=== PATIENT | male | born 1955 | race Caucasian/White ===

== ENCOUNTER 2017-02-05 23:07 | Emergency (ER) | payer MEDICAID ==
[~2017-02-05] VITALS: Ht 170.2 cm; Wt 90.7 kg
[~2017-02-05 23:07] MED LIST: ACETAMINOPHEN325 M2 PO; APAP/HYDROCODON1 T30 PO; ATORVASTATIN CA20 MG PO; BLOOD GLUCOSE1 EACH FS; CARVEDILOL3.125 MG PO; COLACE100 M1 PO; DEXTROSE 50 ML50 M3 IVP; ENEMA READY-TO133 ML RC; FLOMAX0.4 MG PO; FLUZONE QU IMVAC; IPRATROPIUM BROM3 M1 IH; ISORDIL10 M1 PO; LISINOPRIL10 M1 PO; MORPHINE SU2 MG/1 ML IVP; NITROSTAT0.4 MG SL; NOVAPLUS ONDA2 MG/M1 IVP; NOVOLOG100 UNIT/1 SUBQ; PANTOPRAZOLE SO40 MG PO; PNEUMOVAX IMVAC; PROVENTIL2.5 MG/3 M INH; ROBITUSSIN/CODEI5 ML PO; SIMETHICONE80 M2 PO
[2017-02-05 23:09] VITALS: BP 107/74
--- NOTE | 2017-02-06 00:28 | NUR ---
BIB WHEELCHAIR TO ER BED 3 FROM [facility]
--- NOTE | 2017-02-06 00:36 | NUR ---
61 Y/O M BIBA W/C/O SOB, COUGH, RUNNY NOSE X 5 DAYS. DENIES ANY FEVER. SAT 100 % IN RA. SOME DIMINISH BREATH SOUNDS AND SLIGHLTY WHEEZES TO L UPPER LOBE. ER MD NOTIFIED. NO S/S OF DISTRESS AT THE MOMENT.
[2017-02-06] MEDS ORDERED: ALBUTEROL 0.083% 2.5 MG/3 ML NEBU INH ONE (01:20)
[2017-02-06] MEDS ORDERED: NACL 0.9% 1,000 ML IV ONE (01:20)
[2017-02-06] MEDS ORDERED: cefTRIAXone 1,000 MG VIAL ONE (01:58)
[2017-02-06] MEDS ORDERED: cefTRIAXone 1,000 MG in LIDOCAINE 1% ED 2.1 ML IM ONE (02:05)
[2017-02-06] MEDS ORDERED: WATER STERILE 10 ML MC ONE (02:19)
[2017-02-06 02:45] VITALS: BP 113/69
--- NOTE | 2017-02-06 02:45 | NUR ---
Patient discharged BY ER MD DR LLAMAS with v/s stable. Written and verbal after care instructions given and explained BY ER MD. Patient alert, oriented and verbalized understanding of instructions. Ambulatory with steady gait. All questions addressed prior to discharge. ID band removed. Patient advised to follow up with PMD, OR RETURN IF CONDITION WORSENS. Rx of PROMETHAZINE AND BIAXIN FILMTAB given. Patient educated on indication of medication including possible reaction and side effects. Opportunity to ask questions provided and answered.
== END 2017-02-06 02:45 | disposition home or self-care (01) ==
LOC: MED 23:07
DX: J20.9 Acute bronchitis, unspecified (principal); E78.5 Hyperlipidemia, unspecified; I25.2 Old myocardial infarction; E11.9 Type 2 diabetes mellitus without complications; I10 Essential (primary) hypertension; Z79.4 Long term (current) use of insulin; Z88.0 Allergy status to penicillin; Z88.8 Allergy status to other drugs, medicaments and biological substances; Z86.73 Personal history of transient ischemic attack (TIA), and cerebral infarction without residual deficits; Z85.118 Personal history of other malignant neoplasm of bronchus and lung
CPT/HCPCS: 71010; 94640; 96372; 99283; J0696; J2001; J7030; J7060; J7613; Q0092

== ENCOUNTER 2018-09-17 08:59 | Inpatient (IN) | payer MEDICAID, MEDICARE ==
[~2018-09-17] VITALS: Ht 170.2 cm; Wt 81.7 kg
[~2018-09-17 08:59] MED LIST changes: +ACET-1182 PO; +ACET-9529 PO; -ACETAMINOPHEN325 M2 PO; +ALBU3SOL83 IH; -APAP/HYDROCODON1 T30 PO; +ATOR20TA40 PO; -ATORVASTATIN CA20 MG PO; +BLOO1STR56 FS; -BLOOD GLUCOSE1 EACH FS; +CARV3.122 PO; -CARVEDILOL3.125 MG PO; -COLACE100 M1 PO; +D50SYR IVP; -DEXTROSE 50 ML50 M3 IVP; +DOCU-299 PO; -ENEMA READY-TO133 ML RC; -FLOMAX0.4 MG PO; +FLU60SYR IMVAC; -FLUZONE QU IMVAC; +INSU-1343 SUBQ; -IPRATROPIUM BROM3 M1 IH; -ISORDIL10 M1 PO; +ISOS10TA9 PO; +LISI10TA11 PO; -LISINOPRIL10 M1 PO; +MORP2SOL18 IVP; -MORPHINE SU2 MG/1 ML IVP; +NA P133E3 RC; +NITR0.4T1 SL; -NITROSTAT0.4 MG SL; -NOVAPLUS ONDA2 MG/M1 IVP; -NOVOLOG100 UNIT/1 SUBQ; +ONDA2SOL45 IVP; +PANT40EC28 PO; -PANTOPRAZOLE SO40 MG PO; +PNE23I IMVAC; -PNEUMOVAX IMVAC; +PRON INH; -PROVENTIL2.5 MG/3 M INH; +ROBAC PO; -ROBITUSSIN/CODEI5 ML PO; +SIME80CT27 PO; -SIMETHICONE80 M2 PO; +TAMS0.4C96 PO
--- NOTE | 2018-09-17 09:01 | NUR ---
PT BIBA BLS TO BED 7
--- NOTE | 2018-09-17 09:02 | NUR ---
BIB EMS [place] [facility] [place] C/O SOB,abdominal pain, CP ON INHALATION .HX; blind,HTN, DM, LUNG CA, COPD, SD, STENT, PACEMAKER, INFECTION BL LOWER LEGS. DENIES N/V/D; AAOX4 , LUNGS CLEAR BL; PT DENIES ANY FEVER, CP, SOB, OR COUGH AT THIS TIME; PATIENT STATES PAIN OF 9/10 AT THIS TIME; PATIENT POSITIONED FOR COMFORT; HOB ELEVATED; BEDRAILS UP X2; BED DOWN. ER MD MADE AWARE OF PT STATUS.
--- NOTE | 2018-09-17 09:02 | NUR ---
Note undone in EDM - 09/17/18 at 0918 by [email or web address] [place] [facility] [place], CP ON INHALATION .HX; HTN, DM, LUNG CA, COPD, DE, STENT, PACEMAKER, INFECTION BL LOWER LEGS. DENIES N/V/D; AAOX4 , LUNGS CLEAR BL; PT DENIES ANY FEVER, CP, SOB, OR COUGH AT THIS TIME; PATIENT STATES PAIN OF 9/10 AT THIS TIME; PATIENT POSITIONED FOR COMFORT; HOB ELEVATED; BEDRAILS UP X2; BED DOWN. ER MD MADE AWARE OF PT STATUS.
[2018-09-17 09:04] VITALS: BP 131/89
--- NOTE | 2018-09-17 09:12 | NUR ---
Patient being evaluated by physician at bedside.
--- NOTE | 2018-09-17 09:22 | NUR ---
RT AT BEDSIDE FOR ABG
--- NOTE | 2018-09-17 09:27 | NUR ---
LAB AT BEDSIDE.
--- NOTE | 2018-09-17 09:39 | NUR ---
XRAY AT BEDSIDE
[2018-09-17 09:44] LABS: BASOPHILS % (AUTO) 0.4 % (0.0-2.0); EOSINOPHILS # (AUTO) 0.2 K/uL (0-0.4); EOSINOPHILS % (AUTO) 3.4 % (0.0-4.0); HEMOGLOBIN 13.7 g/dL (12.0-18.0); LYMPHOCYTES # (AUTO) 0.7 K/uL (2.0-11.5); LYMPHOCYTES % (AUTO) 14.2 % (20.5-51.1); MEAN CORPUSCULAR HEMOGLOBIN 27 pg (27-31); MEAN CORPUSCULAR HGB CONC 34 g/dL (33-37); MEAN CORPUSCULAR VOLUME 81.3 fL (80-94); MONOCYTES # (AUTO) 0.5 K/uL (0.8-1.0); MONOCYTES % (AUTO) 10.7 % (1.7-9.3); NEUTROPHILS # (AUTO) 3.3 K/uL (1.8-7.7); NEUTROPHILS % (AUTO) 71.3 % (42.2-75.2); PLATELET COUNT (AUTO) 135 K/uL (140-450); RED BLOOD CELL COUNT(AUTO) 5.04 MIL/uL (4.20-6.10); RED CELL DISTRIBUTION WIDTH 17.8 % (11.6-13.7); WHITE BLOOD COUNT (AUTO) 4.6 K/uL (4.8-10.8)
[2018-09-17 09:51] LABS: ANION GAP 11.1 (8-16); CARBON DIOXIDE 29.4 mmol/L (21-32); CREATININE 1.6 mg/dL (0.7-1.3); POTASSIUM 3.5 mmol/L (3.5-5.1)
[2018-09-17 09:54] LABS: ALBUMIN 3.3 g/dL (3.4-5.0); TOTAL BILIRUBIN 0.4 mg/dL (0.0-1.0)
[2018-09-17] MEDS ORDERED: VANCOMYCIN 1,000 MG in DEXTROSE 5% 250 ML IV ONE (10:25)
[2018-09-17] MEDS ORDERED: MEROPENEM 1,000 MG in NACL 0.9% 100 ML IV ONE (10:25)
--- NOTE | 2018-09-17 10:31 | NUR ---
PT TAKEN TO CT IN [facility]
--- NOTE | 2018-09-17 10:42 | NUR ---
PT RETURNED FROM CT
[2018-09-17] MEDS ORDERED: MEROPENEM 1,000 MG VIAL IV ONE ×2 (10:43→12:01)
[2018-09-17] MEDS ORDERED: VANCOMYCIN 1,000 MG VIAL ONE ×2 (10:44→12:00)
--- NOTE | 2018-09-17 11:30 | NUR ---
PT HAS HARD STICK, ATTAPED X 4 TIMES. REPRTED CHARGE NURSE SHAY FOR INSERTED IV.
[2018-09-17] MEDS ORDERED: LORazepam 2 MG/ML VIAL IM/IVP PRN (12:05)
[2018-09-17] MEDS ORDERED: ZOLPIDEM 5 MG TAB PO PRN (12:05)
[2018-09-17] MEDS ORDERED: MORPHINE SULFATE 4 MG/ML SYR IVP PRN (12:05)
[2018-09-17] MEDS ORDERED: ASPI81CT89 PO (12:12)
[2018-09-17] MEDS ORDERED: CARV3.12 PO (12:12)
[2018-09-17] MEDS ORDERED: SPIMDI INH (12:12)
[2018-09-17] MEDS ORDERED: CLOP75TA55 PO (12:12)
[2018-09-17] MEDS ORDERED: BISA-213 RC (12:12)
[2018-09-17] MEDS ORDERED: FURO-572 PO (12:12)
[2018-09-17] MEDS ORDERED: CRAN450T4 PO (12:12)
[2018-09-17] MEDS ORDERED: PRO5 PO (12:12)
[2018-09-17] MEDS ORDERED: SPIR50TA PO (12:12)
[2018-09-17] MEDS ORDERED: LEVA1.2512 IH (12:12)
[2018-09-17] MEDS ORDERED: FISH1CAP3 PO (12:12)
[2018-09-17] MEDS ORDERED: BUDE1AER IH (12:12)
[2018-09-17] MEDS ORDERED: ASCO500T45 PO (12:12)
[2018-09-17] MEDS ORDERED: MULT15LI1 GT (12:12)
[2018-09-17] MEDS ORDERED: ATOR10TA PO (12:12)
--- NOTE | 2018-09-17 12:32 | NUR ---
PT TAKEN TO FLOOR BY RN DAISHA AND EMT HOLLIS
[2018-09-17 12:41] LABS: PROTHROMBIN TIME 9.9 secs (10.8-13.4)
--- NOTE | 2018-09-17 12:45 | NUR ---
Patient will be admitted to care of DR GIL. Admited to TELE. Will go to room 111B. Belongings list completed. Report to MARTHA PATEL.
[2018-09-17 12:48] LABS: CHOL/HDL RATIO 2.3 (1-4.5); FREE T4 (FREE THYROXINE) 1.15 ng/dL (0.76-1.46); MAGNESIUM 1.9 mg/dL (1.8-2.4); PHOSPHORUS 3.4 mg/dL (2.5-4.9); THYROID STIMULATING HORMONE 4.48 uIU/mL (0.34-3.74)
[2018-09-17 13:00] VITALS: BP 107/73
--- NOTE | 2018-09-17 13:00 | NUR ---
ADMITTED PT FROM ER BY NOREEN ROMERO : SHORTNESS OF BREATH, LUNGS SOUND CRACKLES NOTED UPON ASSESSMENT. PT BLIND, AWAKE, ALERT. ABLE TO MAKE NEEDS KNOWN. PT DOES NOT HAVE IV ACCESS AT THIS TIME, PER GMAT TUTOR SKYE, PICC LINE NURSE HAS BEEN CALLED TO COME IN TO INSERT PICC LINE. ABD SOFT, NONTENDER. PT HAD BM LAST NIGHT, PT ABLE TO AMBULATE. CALL LIGHT IN REACH, INTRODUCED MYSELF TO PT, ORIENTED PT ENVIRONMENT. VITALS SIGNS CHECKED, IN NORMAL RANGE. WILL CONTINUE TO MONITOR.
[2018-09-17 13:21] LABS: APPEARANCE,URINE CLEAR (CLEAR); BARBITURATE, URINE NEG. ng/ml (NEG <=200); BENZODIAZEPINE, URINE NEG. ng/mL (NEG <=200); CANNABINOID, URINE NEG. ng/mL (NEG <=50); COCAINE, URINE NEG. ng/mL (NEG <=300); COLOR,URINE YELLOW (YELLOW); OPIATE, URINE NEG. ng/mL (NEG <=2000); PHENCYCLIDINE SCREEN,URINE NEG. ng/mL (NEG <=25)
[2018-09-17 13:23] LABS: BILIRUBIN,URINE NEGATIVE (NEGATIVE); BLOOD, URINE NEGATIVE (NEGATIVE); UGLUCOSE NEGATIVE (NEGATIVE)
[2018-09-17 13:24] LABS: LEUKOCYTE ESTERASE ,URINE NEGATIVE (NEGATIVE); NITRITE, URINE NEGATIVE (NEGATIVE)
--- NOTE | 2018-09-17 14:00 | NUR ---
PT O2 SATS 97% WITHOUT OXYGEN BUT PT STATED HE FEELS SHORTNESS OF BREATH, OFFERED PT O2 NC 2L/MIN, PT STATED HE WANTS SOME OXYGEN TO MAKE HIM COMFORTABLE.
[2018-09-17 16:00] VITALS: BP 104/72
[2018-09-17] MEDS ORDERED: DEXTROSE 50% 50 ML SYR IVP PRN (16:00)
[2018-09-17] MEDS ORDERED: NITROGLYCERIN 0.4 MG TAB SL ONE (16:00)
[2018-09-17] MEDS: BLOOD GLUCOSE MONITORING 1 DEV DEV FS SCH ×2 (16:12→20:32)
--- NOTE | 2018-09-17 16:40 | NUR ---
US TECH AT BEDSIDE. FINGER BS CHECKED 98, NO INSULIN COVERAGE NEEDED.
[2018-09-17] MEDS ORDERED: NITROGLYCERIN 0.4 MG TAB SL PRN (16:50)
[2018-09-17] MEDS ORDERED: LEVALBUTEROL HCL 1.25 MG IH SCH (17:00)
[2018-09-17] MEDS ORDERED: MIDODRINE 5 MG TAB PO SCH (17:15)
--- NOTE | 2018-09-17 17:38 | NUR ---
PICC LINE NURSE PRESENT TO UNIT.
[2018-09-17] MEDS ORDERED: BUPIVACAINE MPF 0.25% 10 ML VIAL INJ SCH (17:45)
[2018-09-17] MEDS ORDERED: LORazepam 2 MG/ML VIAL IM/IVP SCH (17:45)
[2018-09-17] MEDS ORDERED: diphenhydrAMINE 50 MG/ML VIAL IVP SCH (17:45)
--- NOTE | 2018-09-17 17:55 | NUR ---
PICC LINE NURSE STARTED TO INSERT PICC LINE.
--- NOTE | 2018-09-17 18:00 | NUR ---
BENADRYL GIVEN BY PICC LINE NURSE, PICC LINE DID NOT GIVE ATIVAN AND SENSORCAINE-MPF 0.25 %.
--- NOTE | 2018-09-17 18:10 | NUR ---
PICC LINE INSERTION DONE.
--- NOTE | 2018-09-17 18:20 | NUR ---
PICC LINE NURSE AT BEDSIDE TO FEED PT.
--- NOTE | 2018-09-17 18:20 | NUR ---
CUSTOMS BROKERAGE AGENT AT BEDSIDE TO FEED PT INSTEAD OF PICC LINE NURSE. PT HAS SKIN DISCOLORATION TO BOTH LOWER EXTREMITIES BUT SKIN IS INTACT. PICTURE TAKEN BY ER NURSE.
--- NOTE | 2018-09-17 19:15 | NUR ---
PT RESTING IN BED AND TALKING WITH FRIENDS ON THE PHONE, NO S/S OF RESPIRATORY DISTRESS OR DISCOMFORT NOTED.
--- NOTE | 2018-09-17 19:20 | NUR ---
RECEIVED REPORT FROM DAY SHIFT NURSE AT PT BEDSIDE. PT IN STABLE CONDITION. PT IS ON THE PHONE TALKING WITH FRIENDS. PT IS AAOX4. PT IS ON NC 2L RESPIRATIONS ARE EVEN AND UNLABORED. RUE PICC LINE IN PLACE. PATENT AND INTACT. PT HAS SKIN DISCOLORATION TO BILATERAL LE. PT HAS NO C/O PAIN AT THIS TIME. BED IS LOCKED, LOW POSITION WITH SIDE RAILS UP X2. CALL LIGHT IS WITHIN REACH. BOARD UPDATED. WILL CONTINUE TO MONITOR PT.
[2018-09-17 20:00] VITALS: BP 98/69
[2018-09-17] MEDS: NACL 0.9% 1,000 ML IV SCH (20:55)
--- NOTE | 2018-09-17 20:55 | NUR ---
MD PILLAI, GAVE ORDER THAT IT IS OKAY TO NOW USE PICC LINE. MD AWARE THAT ANTIBIOTICS WERE MISSED EARLIER TODAY D/T NO IV ACCESS. MD STILL WANTS ALL ANTIBIOTICS TO BE GIVEN. MISSED ANTIBIOTIC, MERREM, STARTED. PT IS TOLERATING WELL. WILL CONTINUE TO MONITOR.
[2018-09-17] MEDS ORDERED: METOPROLOL 25 MG TAB PO SCH (21:00)
[2018-09-17] MEDS ORDERED: CLINDAMYCIN 600 MG in DEXTROSE 5% 50 ML IV SCH (21:00)
--- NOTE | 2018-09-17 21:40 | NUR ---
VANCOMYCIN STARTED. PT IS RESTING COMFORTABLY IN BED. NO SIGNS OR SYMPTOMS OF DISTRESS. WILL CONTINUE TO MONITOR.
[2018-09-17] MEDS: CLINDAMYCIN PHOS 600MG/D5W PM 50 ML IV SCH (21:53)
[2018-09-17] MEDS: ATORVASTATIN 20 MG TAB PO SCH (21:54)
[2018-09-17] MEDS: CLOPIDOGREL 75 MG TAB PO SCH (21:54)
[2018-09-17] MEDS: FUROSEMIDE 20 MG TAB PO SCH (21:54)
--- NOTE | 2018-09-17 21:54 | NUR ---
ADMINISTERED SCHEDULED MEDICATIONS. PT TOLERATED WELL. ALL OTHER NEEDS ARE MET AT THIS TIME. WILL CONTINUE TO MONITOR.
--- NOTE | 2018-09-17 22:34 | NUR ---
X-RAY TECHS AT BEDSIDE.
--- NOTE | 2018-09-17 23:10 | NUR ---
PT TRANSFERRED TO ROOM 106A. PT IN STABLE CONDITION. ALL OTHER NEEDS ARE MET AT THIS TIME.
[2018-09-17] MEDS: LEVOFLOXACIN 750 MG/D5W PREMIX 150 ML IV SCH (23:30)
--- NOTE | 2018-09-17 23:30 | NUR ---
LEVOFLOXACIN STARTED. PT SLEEPING COMFORTABLY IN BED. NO SIGNS OR SYMPTOMS OF DISTRESS. WILL CONTINUE TO MONITOR.
[2018-09-18] VITALS: BP 93/59
--- NOTE | 2018-09-18 01:25 | NUR ---
PT IS ASLEEP IN BED. NO SIGNS OR SYMPTOMS OF DISTRESS. WILL CONTINUE TO MONITOR.
[2018-09-18 04:00] VITALS: BP 92/58
[2018-09-18] MEDS: CLINDAMYCIN PHOS 600MG/D5W PM 50 ML IV SCH ×3 (04:29→20:58)
--- NOTE | 2018-09-18 04:29 | NUR ---
ADMINISTERED SCHEDULED ANTIBIOTIC. PT IS SLEEPING COMFORTABLY IN BED. NO SIGNS OR SYMPTOMS OF DISTRESS. WILL CONTINUE TO MONITOR.
[2018-09-18] MEDS: BLOOD GLUCOSE MONITORING 1 DEV DEV FS SCH ×4 (06:17→20:58)
--- NOTE | 2018-09-18 06:18 | NUR ---
BS CHECKED, 102. NO COVERAGE NEEDED PER MD ORDERS. WILL CONTINUE TO MONITOR PT.
[2018-09-18 06:49] LABS: BASOPHILS % (AUTO) 0.4 % (0.0-2.0); EOSINOPHILS # (AUTO) 0.3 K/uL (0-0.4); EOSINOPHILS % (AUTO) 5.8 % (0.0-4.0); HEMATOCRIT 35.4 % (36-52); HEMOGLOBIN 11.5 g/dL (12.0-18.0); LYMPHOCYTES # (AUTO) 0.7 K/uL (2.0-11.5); LYMPHOCYTES % (AUTO) 15.6 % (20.5-51.1); MEAN CORPUSCULAR HEMOGLOBIN 27 pg (27-31); MEAN CORPUSCULAR HGB CONC 33 g/dL (33-37); MEAN CORPUSCULAR VOLUME 81.6 fL (80-94); MONOCYTES # (AUTO) 0.5 K/uL (0.8-1.0); MONOCYTES % (AUTO) 11.3 % (1.7-9.3); NEUTROPHILS # (AUTO) 3.1 K/uL (1.8-7.7); NEUTROPHILS % (AUTO) 66.9 % (42.2-75.2); PLATELET COUNT (AUTO) 122 K/uL (140-450); RED BLOOD CELL COUNT(AUTO) 4.33 MIL/uL (4.20-6.10); WHITE BLOOD COUNT (AUTO) 4.7 K/uL (4.8-10.8)
[2018-09-18 07:09] LABS: ANION GAP 9.5 (8-16); CARBON DIOXIDE 29.7 mmol/L (21-32); CREATININE 1.6 mg/dL (0.7-1.3); POTASSIUM 4.2 mmol/L (3.5-5.1)
[2018-09-18 07:15] LABS: MAGNESIUM 1.8 mg/dL (1.8-2.4); PHOSPHORUS 4.3 mg/dL (2.5-4.9)
[2018-09-18 07:18] LABS: T4 (THYROXINE) 9.2 ug/dL (4.5-12.0)
[2018-09-18] MEDS: ALBUTEROL 0.083% 2.5 MG/3 ML NEBU INH SCH ×2 (07:30→07:58)
--- NOTE | 2018-09-18 07:31 | NUR ---
ENDORSED PT TO DAY SHIFT NURSE FOR CONTINUITY OF CARE. PT IN STABLE CONDITION.
--- NOTE | 2018-09-18 07:32 | NUR ---
REPORT RECIEVED FROM BUDGET CONTROLLER NURSE, PT SLEEPING QUIETLY IN NAD, RESP EVEN UNLABORED ON 2L NC, AROUSES EASILY, DENIES ANY IMMEDIATE NEEDS, DENIES PAIN OR DISCOMFORT, POC REVIEWED, ALL SAFETY MEASURES IN PLACE, WILL CONTINUE TO MONITOR./
--- NOTE | 2018-09-18 07:40 | NUR ---
PT ASSSITED WITH FEEDING REQUESTED BY PT, GIA 90-95% BREAKFAST WELL. PT TALKS IN FULL SENTENCES, APPEARS IN NO RESP DISTRESS, WILL CONTINUE TO MONT[place].
[2018-09-18 08:00] VITALS: BP 96/62
--- NOTE | 2018-09-18 08:21 | NUR ---
PATIENT HAS BEEN SCREENED AND CATEGORIZED HIGH NUTRITION RISK. PATIENT WILL BE SEEN WITHIN 1-2 DAYS OF ADMISSION. 09/18/18-09/19/[address]
[2018-09-18] MEDS ORDERED: LISINOPRIL 5 MG TAB PO SCH (09:00)
[2018-09-18] MEDS ORDERED: CARVEDILOL 3.125 MG TAB PO SCH (09:00)
[2018-09-18] MEDS ORDERED: SPIRONOLACTONE 25 MG TAB PO SCH (09:00)
[2018-09-18] MEDS ORDERED: ATORVASTATIN 20 MG TAB PO SCH (09:00)
[2018-09-18] MEDS: ASPIRIN 81 MG TAB.CHEW PO SCH (09:21)
[2018-09-18] MEDS: FUROSEMIDE 20 MG TAB PO SCH (09:21)
[2018-09-18] MEDS: MIDODRINE 5 MG TAB PO SCH ×3 (09:22→16:04)
[2018-09-18] MEDS: LACTOBACILLUS RHAMNOSUS GG 1 EACH CAP PO SCH (09:22)
--- NOTE | 2018-09-18 09:28 | NUR ---
AM MEDS GIVEN, PT GIA PILLS WELL, PT TALKING IN FULL SENTENCES, PT DENIES PAIN OR DISCOMFORT, WILL CONTINUE TO MONITOR
--- NOTE | 2018-09-18 11:30 | NUR ---
BEDSIDE GLUCOSE 86, NO INSULIN NEEDED PER SLIDING SCALE.
[2018-09-18 12:00] VITALS: BP 97/62
[2018-09-18] MEDS: NACL 0.9% 1,000 ML IV SCH (12:03)
[2018-09-18] MEDS: ALBUTEROL SULFATE/IPRATROPIU 3 ML SOL IH SCH ×2 (13:15→19:30)
--- NOTE | 2018-09-18 13:30 | NUR ---
CM NOTE PER [facility] [place] PH# [phone] FOR ANY DC NEEDS TO CONTACT [facility] AND FAX TO [phone]. SHE ALSO STATED THAT IF PATIENT NEEDS TO GO BACK TO SNF TO USE [facility] [place] PH# [phone] AND NO PRE-AUTHORIZATION IS NEEDED FOR TRANSPORT WITH [facility] [place].
[2018-09-18] MEDS ORDERED: FUROSEMIDE 20 MG/2 ML VIAL IVP SCH (13:55)
--- NOTE | 2018-09-18 14:12 | NUR ---
SCHEDULED CLINDA STARTED VIA PICC, PICC SITE CLEAR SYEDL, PT SPEAKING ON THE PHONE IN NAD. [facility]
--- NOTE | 2018-09-18 14:48 | NUR ---
09/18/18 RD INITIAL ASSESSMENT COMPLETED PLEASE REFER TO NUTRITION ASSESSMENT UNDER CARE ACTIVITY FOR ESTIMATED NUTRITIONAL NEEDS. 1. CONTINUE [facility] DIET TOLERATED 2. RD PROVIDED NUTRITIONAL DIABETIC EDUCATION. 3. RD TO FOLLOW-UP 3-5 DAYS, MODERATE RISK [address]
[2018-09-18 16:00] VITALS: BP 98/65
--- NOTE | 2018-09-18 16:00 | NUR ---
VITALS TAKEN, PT WAS BRUSHING HIS TEETH WITHOUT OXYGEN, O2 SAT 96% ON RA, NC REMOVED AT THIS TIME.
[2018-09-18] MEDS: ONDANSETRON 4 MG/2 ML VIAL IM/IVP PRN (19:21)
--- NOTE | 2018-09-18 19:21 | NUR ---
PT C/O NAUSEA AFTER DINNER, ZOFRAN GIVEN.
--- NOTE | 2018-09-18 19:28 | NUR ---
REPORT GIVEN TO STONE POLISHER MACHINE NURSE, PT IN STABLE CONDITION, ON THE PHONE WITH A FRIEND.
--- NOTE | 2018-09-18 19:29 | NUR ---
REPORT RECEIVED FROM AM NURSE AT BEDSIDE. PT IN STABLE CONDITION. AAOX4. INTRODUCED SELF TO PT AND BOARD UPDATED. PT IS LEGALLY BLIND. NO COMPLAINTS OF PAIN. NO SOB. PT HAS R UA PICC LINE DOUBLE LUMEN RUNNING NS TKO. SKKIN WARM, DRY, AND INTACT WITH NO OPEN WOUNDS. BED LOCKED IN LOW POSITION. CALL SPENCER WITHIN REACH. SAFETY PRECAUTIONS IN PLACE.
--- NOTE | 2018-09-18 19:40 | NUR ---
RECEIVED PATIENT ON ROOM AIR, O2 SAT 96%. PATIENT AWAKE AND ALERT. SCHEDULED BREATHING TREATMENT ADMINISTERED. PATIENT TOLERATED TX WELL, NO ADVERSE REACTIONS. WILL CONTINUE TO MONITOR.
[2018-09-18 20:00] VITALS: BP 103/65
--- NOTE | 2018-09-18 20:58 | NUR ---
LIPITOR AND PLAVIX GIVEN PO. CLINDAMYCIN HUNG AND RUNNING. BS 98. NO INSULIN COVERAGE NEEDED. PT TOLERATED WELL.
[2018-09-18] MEDS: CLOPIDOGREL 75 MG TAB PO SCH (20:59)
[2018-09-18] MEDS: FUROSEMIDE 20 MG/2 ML VIAL IVP SCH (20:59)
[2018-09-18] MEDS: ATORVASTATIN 20 MG TAB PO SCH (20:59)
--- NOTE | 2018-09-18 22:00 | NUR ---
CRITICAL LAB VALUE TROPONIN 0.076 TRENDING DOWN. MD NOTIFIED. NO CHANGE IN ORDERS.
[2018-09-19] VITALS: BP 86/52
--- NOTE | 2018-09-19 00:30 | NUR ---
PT SLEEPING COMFORTABLY. NO S/S OF DISTRESS NOTED. BREATHING EVEN, UNLABORED, AND WNL. WILL CONTINUE TO MONITOR.
--- NOTE | 2018-09-19 02:15 | NUR ---
PT SLEEPING COMFORTABLY. NO S/S OF DISTRESS. NO COMPLAINTS OF PAIN. NO SOB.
[2018-09-19 04:00] VITALS: BP 87/57
[2018-09-19] MEDS: CLINDAMYCIN PHOS 600MG/D5W PM 50 ML IV SCH ×3 (04:04→20:44)
--- NOTE | 2018-09-19 04:04 | NUR ---
CLINDAMYCIN HUNG AND RUNNING. PT TOLERATING WELL.
[2018-09-19] MEDS: BLOOD GLUCOSE MONITORING 1 DEV DEV FS SCH ×4 (06:09→20:23)
[2018-09-19] MEDS: HYDROcodone/APAP 5/325 MG 1 TAB TAB PO PRN (06:36)
--- NOTE | 2018-09-19 07:05 | NUR ---
ASSUMED CONTINUITY OF CARE. NO SIGNS AND SYMPTOMS OF ACUTE DISTRESS NOTICED. INITIAL ASSESSMENT DONE. FAMILIARIZED WITH SURROUNDINGS AND KEEP COMFORTABLE ON BED. EXPLAINED DIAGNOSIS, PLAN OF CARE, PAIN MANAGEMENT TEACHING, USE OF CALL LIGHT/BED/TV/BATHROOM. VERBALIZED UNDERSTANDING. FALL PRECAUTION APPLIED. CALL LIGHT WITHIN REACH.
--- NOTE | 2018-09-19 07:05 | NUR ---
REPORT GIVEN TO AM NURSE AT BEDSIDE. PT IN STABLE CONDITION.
[2018-09-19 07:17] LABS: BASOPHILS % (AUTO) 0.4 % (0.0-2.0); EOSINOPHILS # (AUTO) 0.2 K/uL (0-0.4); EOSINOPHILS % (AUTO) 5.4 % (0.0-4.0); HEMATOCRIT 35.1 % (36-52); HEMOGLOBIN 11.8 g/dL (12.0-18.0); LYMPHOCYTES # (AUTO) 0.8 K/uL (2.0-11.5); LYMPHOCYTES % (AUTO) 17.7 % (20.5-51.1); MEAN CORPUSCULAR HEMOGLOBIN 27 pg (27-31); MEAN CORPUSCULAR HGB CONC 34 g/dL (33-37); MEAN CORPUSCULAR VOLUME 80.7 fL (80-94); MONOCYTES # (AUTO) 0.6 K/uL (0.8-1.0); MONOCYTES % (AUTO) 13.8 % (1.7-9.3); NEUTROPHILS # (AUTO) 2.7 K/uL (1.8-7.7); NEUTROPHILS % (AUTO) 62.7 % (42.2-75.2); PLATELET COUNT (AUTO) 125 K/uL (140-450); RED BLOOD CELL COUNT(AUTO) 4.35 MIL/uL (4.20-6.10); RED CELL DISTRIBUTION WIDTH 17.6 % (11.6-13.7); WHITE BLOOD COUNT (AUTO) 4.2 K/uL (4.8-10.8)
[2018-09-19 07:26] LABS: PHOSPHORUS 4.9 mg/dL (2.5-4.9)
[2018-09-19 07:36] LABS: ANION GAP 11.4 (8-16); CARBON DIOXIDE 30.6 mmol/L (21-32)
[2018-09-19 08:00] VITALS: BP 94/63
[2018-09-19] MEDS: ALBUTEROL SULFATE/IPRATROPIU 3 ML SOL IH SCH ×3 (08:19→18:36)
[2018-09-19] MEDS: ASPIRIN 81 MG TAB.CHEW PO SCH (08:37)
[2018-09-19] MEDS: MIDODRINE 5 MG TAB PO SCH ×3 (08:37→16:34)
[2018-09-19] MEDS: LACTOBACILLUS RHAMNOSUS GG 1 EACH CAP PO SCH (08:37)
[2018-09-19 08:40] LABS: CREATININE 1.6 mg/dL (0.7-1.3)
[2018-09-19] MEDS: CARVEDILOL 3.125 MG TAB PO SCH ×2 (08:46→21:00)
[2018-09-19] MEDS: FUROSEMIDE 20 MG/2 ML VIAL IVP SCH ×2 (08:46→21:00)
--- NOTE | 2018-09-19 09:40 | NUR ---
DR. TRINH CAME, REVIEWED PT. CHART, AND INFORMED OF LATEST TROP 0.069. DR. RESENDEZ MADE AWARE OF TROP 0.069 ALSO.
--- NOTE | 2018-09-19 11:00 | NUR ---
Press Leader Notes: I contact [facility] at I spoke to Liya Charge nurse to discuss and gather patient's information. Per Charge Nurse Liya Patient is on a 7 day skill bed hold and is able to return to [facility] upon discharge.
--- NOTE | 2018-09-19 11:07 | NUR ---
CHEPE JHA AND RESIDENTS CAME FOR AM PT. ROUNDS.
[2018-09-19 12:00] VITALS: BP 100/67
[2018-09-19] MEDS: NACL 0.9% 1,000 ML IV SCH (12:03)
--- NOTE | 2018-09-19 13:35 | NUR ---
FUR BLOWER JUAN CAME AND SPOKE TO PT. AT BEDSIDE.
--- NOTE | 2018-09-19 15:00 | NUR ---
Dust Operator attempted to contact Patient's friend/caregiver New per Patient's request several times (3x) with no response. These proposal manager writer left her MSG's in voicemail with direct contact number and request for a call back.
[2018-09-19 16:00] VITALS: BP 90/56
[2018-09-19] MEDS: LEVOFLOXACIN 750 MG/D5W PREMIX 150 ML IV SCH (16:39)
--- NOTE | 2018-09-19 19:17 | NUR ---
BEDSIDE REPORT GIVEN TO JOSH RAMACHANDRAN. IVF INFUSING WELL. IN STABLE CONDITION.
--- NOTE | 2018-09-19 19:20 | NUR ---
RECEIVED PATIENT SITTING ON BED IN COMFORTABLE POSITION. EXPLAINED PLAN OF CARE AND VERBALIZED UNDERSTANDING. EDUCATE PATIENT ABOUT FALL PRECAUTION AND EXPLAINED TO CALL FOR HELP FOR ASSISTANCE SINCE PATIENT IS PARTIALLY BLIND. FALL PRECAUTION APPLIED. CALL LIGHT WITHIN REACH. WILL CONTINUE TO MONITOR.
[2018-09-19 20:00] VITALS: BP 92/65
[2018-09-19] MEDS: ONDANSETRON 4 MG/2 ML VIAL IM/IVP PRN (20:38)
[2018-09-19] MEDS: ATORVASTATIN 20 MG TAB PO SCH (20:44)
--- NOTE | 2018-09-19 21:00 | NUR ---
SCHEDULE MEDICATION GIVEN AND TOLERATED WELL. BS TAKEN AND RECORDED. ALL NEEDS ATTENDED. CALL LIGHT WITHIN REACH AND ANSWER LIGHT IN TIMELY MANNER. NO S/S OF DISTRESS NOTED AT THIS TIME. ALL NEEDS ATTENDED.
[2018-09-20] VITALS: BP 89/55
--- NOTE | 2018-09-20 00:05 | NUR ---
CALLED RT FOR BREATHING TREATMENT AND ACKNOWLEDGE. PATIENT COMPLAINING OF COUGHING. RT CAME AND START THE BREATHING TREATMENT.
[2018-09-20] MEDS: ALBUTEROL SULFATE/IPRATROPIU 3 ML SOL IH PRN (00:22)
--- NOTE | 2018-09-20 02:00 | NUR ---
CHECKED PATIENT ASLEEP ON BED. ALL NEEDS ATTENDED. AM CARE DONE. NO S/ OF DISTRESS NOTED. WILL CONTINUE TO MONITOR.
[2018-09-20 04:00] VITALS: BP 91/60
--- NOTE | 2018-09-20 04:00 | NUR ---
SEEN PATIENT ASLEEP ON BED. AM CARE DONE. CALL LIGHT WITHIN REACH.
[2018-09-20] MEDS: CLINDAMYCIN PHOS 600MG/D5W PM 50 ML IV SCH ×3 (05:00→20:28)
[2018-09-20] MEDS: NACL 0.9% 1,000 ML IV SCH ×2 (05:38→10:46)
[2018-09-20] MEDS: BLOOD GLUCOSE MONITORING 1 DEV DEV FS SCH ×4 (06:05→20:08)
[2018-09-20] MEDS: ALBUTEROL SULFATE/IPRATROPIU 3 ML SOL IH SCH ×3 (06:56→20:00)
--- NOTE | 2018-09-20 07:10 | NUR ---
ASSUMED CONTINUITY OF CARE. NO SIGNS AND SYMPTOMS OF ACUTE DISTRESS NOTED. INITIAL ASSESSMENT DONE. FAMILIARIZED WITH SURROUNDINGS. EXPLAINED DIAGNOSIS, PLAN OF CARE, PAIN MANAGEMENT TEACHING, USE OF CALL LIGHT/ BED/TV/BATHROOM. VERBALIZED UNDERSTANDING. FALL PRECAUTION APPLIED. CALL LIGHT WITHIN REACH.
--- NOTE | 2018-09-20 07:10 | NUR ---
GAVE REPORT TO AM SHIFT NURSE AT BEDSIDE FOR CONTINUITY OF CARE. PATIENT IN STABLE CONDITION.
[2018-09-20 08:00] VITALS: BP 93/64
[2018-09-20] MEDS: LACTOBACILLUS RHAMNOSUS GG 1 EACH CAP PO SCH (08:36)
[2018-09-20] MEDS: MIDODRINE 5 MG TAB PO SCH ×3 (08:36→16:44)
[2018-09-20] MEDS: DOCUSATE SODIUM 100 MG GELCAP PO PRN (08:37)
[2018-09-20] MEDS: ASPIRIN 81 MG TAB.CHEW PO SCH (08:37)
[2018-09-20] MEDS: FUROSEMIDE 20 MG/2 ML VIAL IVP SCH ×3 (08:45→20:23)
[2018-09-20] MEDS: CARVEDILOL 3.125 MG TAB PO SCH ×2 (08:45→20:23)
[2018-09-20 09:05] LABS: BASOPHILS % (AUTO) 0.3 % (0.0-2.0); EOSINOPHILS # (AUTO) 0.2 K/uL (0-0.4); EOSINOPHILS % (AUTO) 4.9 % (0.0-4.0); HEMATOCRIT 35.4 % (36-52); HEMOGLOBIN 11.6 g/dL (12.0-18.0); LYMPHOCYTES # (AUTO) 0.7 K/uL (2.0-11.5); LYMPHOCYTES % (AUTO) 15.8 % (20.5-51.1); MEAN CORPUSCULAR HEMOGLOBIN 27 pg (27-31); MEAN CORPUSCULAR HGB CONC 33 g/dL (33-37); MEAN CORPUSCULAR VOLUME 81.1 fL (80-94); MONOCYTES # (AUTO) 0.5 K/uL (0.8-1.0); MONOCYTES % (AUTO) 10.8 % (1.7-9.3); NEUTROPHILS # (AUTO) 3.2 K/uL (1.8-7.7); NEUTROPHILS % (AUTO) 68.2 % (42.2-75.2); PLATELET COUNT (AUTO) 115 K/uL (140-450); RED BLOOD CELL COUNT(AUTO) 4.36 MIL/uL (4.20-6.10); RED CELL DISTRIBUTION WIDTH 18.2 % (11.6-13.7); WHITE BLOOD COUNT (AUTO) 4.7 K/uL (4.8-10.8)
--- NOTE | 2018-09-20 09:08 | NUR ---
INFORMED DR. RESENDEZ THAT LASIX 20 MG IVP, AND CARVEDILOL 3.125 MG PO WAS NOT GIVEN TO DUE TO LOW BP 93/[address] RESENDEZ, JUST GIVE LASIX 20 MG IVP, AND DON'T GIVE CARVEDILOL 3.125 MG PO. INFORMED CHARGE NURSE ARIS RAMACHANDRAN.
[2018-09-20 09:11] LABS: ANION GAP 11.1 (8-16); CARBON DIOXIDE 28.1 mmol/L (21-32); CREATININE 1.4 mg/dL (0.7-1.3); POTASSIUM 4.2 mmol/L (3.5-5.1)
--- NOTE | 2018-09-20 09:27 | NUR ---
FUROSEMIDE 20MG IVP ADMINISTERED PER DR RESENDEZ. RIGHT UPPER ARM PICC LINE INTACT & PATENT. PT IS AAOx4, NO C/O DISCOMFORT AT THIS TIME. ENCOURAGED TO CALL FOR ASSISTANCE PRN, VERBALIZED UNDERSTANDING. CALL LIGHT WITHIN REACH.
[2018-09-20 12:00] VITALS: BP 94/60
[2018-09-20 16:00] VITALS: BP 112/67
--- NOTE | 2018-09-20 16:00 | NUR ---
VITALS SIGNS STABLE. NO C/O PAIN. WILL MONITOR.
--- NOTE | 2018-09-20 19:08 | NUR ---
REPORT GIVEN TO JOSH GUSTAFSON -AMANDA. IVF INFUSING WELL. IN STABLE CONDITION.
--- NOTE | 2018-09-20 19:10 | NUR ---
RECEIVED PATIENT AWAKE RESTING ON BED IN HIGH FOWLERS POSITION. EXPLAINED PLAN OF CARE AND VERBALIZED UNDERSTANDING. TOLD PATIENT USE THE CALL LIGHT FOR ASSISTANCE. FALL PRECAUTION APPLIED. CALL LIGHT WITHIN REACH.
[2018-09-20 20:00] VITALS: BP 97/58
--- NOTE | 2018-09-20 20:00 | NUR ---
V/S TAKEN AND RECORDED. BS TAKEN NO COVERAGE PER SLIDING SCALE.
[2018-09-20] MEDS: ATORVASTATIN 20 MG TAB PO SCH (20:24)
--- NOTE | 2018-09-20 21:00 | NUR ---
SCHEDULE MEDICATION GIVEN TOLERATED WELL. NO S/S OF DISTRESS NOTED AT THIS TIME. ENCOURAGED PATIENT TO CALL FOR ASSISTANCE IF NEEDED. CALL LIGHT WITHIN REACH. WILL CONTINUE TO MONITOR.
[2018-09-21] VITALS: BP 94/61
--- NOTE | 2018-09-21 | NUR ---
SEEN PATIENT ASLEEP ON BED. NO S/S OF DISTRESS NOTED AT THIS TIME. WILL CONTINUE TO MONITOR. CALL LIGHT WITHIN REACH.
--- NOTE | 2018-09-21 02:00 | NUR ---
CHECKED PATIENT ASLEEP. NO S/S OF DISTRESS NOTED AT THIS TIME. CALL LIGHT WITHIN REACH.
[2018-09-21 04:00] VITALS: BP 90/57
--- NOTE | 2018-09-21 05:00 | NUR ---
PATIENT CONGESTED AND CALLED RT FOR BREATHING TREATMENT. SHE SAID SHE WILL COME BACK TO GET HER COMPUTER. SPOKE TO PATIENT EXPLAINED RT WILL COME FOR HERE TREATMENT.
[2018-09-21] MEDS: CLINDAMYCIN PHOS 600MG/D5W PM 50 ML IV SCH ×2 (05:06→12:04)
[2018-09-21] MEDS: ALBUTEROL SULFATE/IPRATROPIU 3 ML SOL IH SCH ×3 (05:18→19:13)
--- NOTE | 2018-09-21 05:23 | NUR ---
NURSE CALL FOR THE PT THAT HE WANT A TX, AND HE IS SOB. PT SAT 96%, OM ROOM AIR , BS ARE CLEAR BILAT AND DECREASED RIGHT LATERAL. I GAVE PT THE TX, SAT 100%AFTER TX.
[2018-09-21 07:05] LABS: BASOPHILS % (AUTO) 0.3 % (0.0-2.0); EOSINOPHILS # (AUTO) 0.2 K/uL (0-0.4); HEMATOCRIT 35.2 % (36-52); HEMOGLOBIN 11.5 g/dL (12.0-18.0); LYMPHOCYTES # (AUTO) 0.9 K/uL (2.0-11.5); LYMPHOCYTES % (AUTO) 19.2 % (20.5-51.1); MEAN CORPUSCULAR HEMOGLOBIN 27 pg (27-31); MEAN CORPUSCULAR HGB CONC 33 g/dL (33-37); MEAN CORPUSCULAR VOLUME 81.2 fL (80-94); MONOCYTES # (AUTO) 0.6 K/uL (0.8-1.0); MONOCYTES % (AUTO) 11.9 % (1.7-9.3); NEUTROPHILS % (AUTO) 63.6 % (42.2-75.2); PLATELET COUNT (AUTO) 122 K/uL (140-450); RED BLOOD CELL COUNT(AUTO) 4.33 MIL/uL (4.20-6.10); WHITE BLOOD COUNT (AUTO) 4.7 K/uL (4.8-10.8)
--- NOTE | 2018-09-21 07:15 | NUR ---
ENDORSEMENT GIVEN TO AM SHIFT RN AT BEDSIDE FOR CONTINUITY OF CARE. PATIENT IN STABLE CONDITION.
[2018-09-21 07:16] LABS: PHOSPHORUS 3.9 mg/dL (2.5-4.9)
[2018-09-21 07:20] LABS: ANION GAP 11.2 (8-16); CARBON DIOXIDE 27.9 mmol/L (21-32); CREATININE 1.3 mg/dL (0.7-1.3); POTASSIUM 4.1 mmol/L (3.5-5.1)
--- NOTE | 2018-09-21 07:30 | NUR ---
RECEIVED PATIENT FROM SLUBBER HAND RN BY BEDSIDE. PATIENT IS ALERT AND ORIENTED; ON ROOM AIR. PATIENT IS B/L PARTIALLY BLIND. PATIENT DENIES ANY PAIN. PATIENT HAS PATENT DOUBLE LUMEN PICC LINE ON THE L ARM.
[2018-09-21 08:00] VITALS: BP 92/59
[2018-09-21] MEDS: BLOOD GLUCOSE MONITORING 1 DEV DEV FS SCH ×4 (08:03→20:43)
[2018-09-21] MEDS: ALBUTEROL SULFATE/IPRATROPIU 3 ML SOL IH PRN (08:19)
[2018-09-21] MEDS: CARVEDILOL 3.125 MG TAB PO SCH ×2 (09:00→20:43)
[2018-09-21] MEDS: FUROSEMIDE 20 MG/2 ML VIAL IVP SCH ×2 (09:00→20:43)
--- NOTE | 2018-09-21 09:11 | NUR ---
PATIENT IS AMBULATING THE UNIT WITH PT. NO S/S OF DISTRESS NOTED
--- NOTE | 2018-09-21 10:30 | NUR ---
PATIENT IS COMFORTABLE AND IN GOOD MOOD. PATIENT IS NOT IN ANY DISTRESS OR PAIN. WILL CONTINUE TO MONITOR AND MAKE FREQUENT ROUNDS.
[2018-09-21] MEDS: ASPIRIN 81 MG TAB.CHEW PO SCH (10:37)
[2018-09-21] MEDS: MIDODRINE 5 MG TAB PO SCH ×3 (10:37→17:19)
[2018-09-21] MEDS: LACTOBACILLUS RHAMNOSUS GG 1 EACH CAP PO SCH (10:37)
[2018-09-21 12:00] VITALS: BP 121/78
--- NOTE | 2018-09-21 13:28 | NUR ---
PATIENT ON PHONE REQUEST HHN THERAPY IN 20 MINS NO SOB NOTED
--- NOTE | 2018-09-21 15:25 | NUR ---
PATIENT IS COMFORTABLE AND DENIES ANY PAIN. THE BED IS IN THE LOWEST POSITION AND CALL LIGHT WITHIN REACH.
[2018-09-21] MEDS ORDERED: LEVOFLOXACIN 750 MG/D5W PREMIX 150 ML IV SCH (17:00)
[2018-09-21 17:37] VITALS: BP 101/69
--- NOTE | 2018-09-21 19:30 | NUR ---
PATIENT REPORT GIVEN AT BEDSIDE. PATIENT ENDORSED IN STABLE CONDITION
--- NOTE | 2018-09-21 19:31 | NUR ---
RECEIVED REPORT FROM DAY SHIFT NURSE MILLI-RN AT BEDSIDE. AOX4, ON ROOM AIR WITH DOUBLE LUMEN PICC LINE ON RIGHT ARM- SL. BILATERAL PARTIALLY BLIND, WITH DISCOLORED/EDEMA BLE. PT AMBULATORY HOWEVER CHOOSES TO USE BEDPAN AND URINAL. DISCUSSED PLAN OF CARE AND PT VERBALIZED UNDERSTANDING. NO S/S OF RESPIRATORY DISTRESS OR DISCOMFORT NOTED AT THIS TIME. BED IN LOWEST POSITION, BED BREAKS ON, BOTH SIDE RAILS UP AND BED ALARM ON. ON FLUID RESTRICTIONS 1,000ML/DAY. BED SIDE TABLE AND CALL LIGHT ARE WITHIN REACH. WILL CONTINUE TO MONITOR.
[2018-09-21 20:00] VITALS: BP 103/61
--- NOTE | 2018-09-21 20:00 | NUR ---
VITAL SIGNS TAKEN AND TOLERATED WELL. BLOOD GLUCOSE 104-NO INSULIN COVERAGE NEEDED. NO S/S OF RESPIRATORY DISTRESS OR DISCOMFORT NOTED AT THIS TIME. WILL CONTINUE TO MONITOR.
[2018-09-21] MEDS: ATORVASTATIN 20 MG TAB PO SCH (20:29)
--- NOTE | 2018-09-21 20:39 | NUR ---
SCHEDULED MEDICATION LIPITOR AND HEPARIN GIVEN AND TOLERATED WELL. LASIX AND COREG NOT GIVEN DUE TO DECREASED BP. NO S/S OF RESPIRATORY DISTRESS OR DISCOMFORT NOTED AT THIS TIME. WILL CONTINUE TO MONITOR.
[2018-09-21] MEDS: HYDROcodone/APAP 5/325 MG 1 TAB TAB PO PRN (22:34)
--- NOTE | 2018-09-21 22:34 | NUR ---
PT C/O BACK PAIN AND IV SITE PAIN 5/6 OUT OF 10. MEDICATED WITH NORCO. PT TOLERATED WELL. NO S/S OF RESPIRATORY DISTRESS OR DISCOMFORT NOTED AT THIS TIME. WILL CONTINUE TO MONITOR.
[2018-09-22] VITALS: BP 94/63
--- NOTE | 2018-09-22 | NUR ---
VITAL SIGNS TAKEN AND TOLERATED WELL. NO S/S OF RESPIRATORY DISTRESS OR DISCOMFORT NOTED AT THIS TIME. WILL CONTINUE TO MONITOR.
--- NOTE | 2018-09-22 02:00 | NUR ---
PT CONTINUES TO SLEEP. NO S/S OF RESPIRATORY DISTRESS OR DISCOMFORT NOTED AT THIS TIME. WILL CONTINUE TO MONITOR.
[2018-09-22] MEDS: ALBUTEROL SULFATE/IPRATROPIU 3 ML SOL IH PRN (02:41)
--- NOTE | 2018-09-22 02:41 | NUR ---
PT C/O SOB, RT WAS CALLED AND GIVEN A TREATMENT. WILL CONTINUE TO MONITOR.
--- NOTE | 2018-09-22 03:00 | NUR ---
PT CONTINUES TO C/O SOB, 2L/NC GIVEN AND TOLERATED WELL. WILL CONTINUE TO MONITOR.
[2018-09-22 04:00] VITALS: BP 100/67
--- NOTE | 2018-09-22 04:00 | NUR ---
VITAL SIGNS TAKEN AND TOLERATED WELL. NO S/S OF RESPIRATORY DISTRESS OR DISCOMFORT NOTED AT THIS TIME. WILL CONTINUE TO MONITOR.
--- NOTE | 2018-09-22 06:00 | NUR ---
BLOOD GLUCOSE 100- NO INSULIN COVERAGE NEEDED. PT TOLERATED WELL. NO S/S OF RESPIRATORY DISTRESS OR DISCOMFORT NOTED AT THIS TIME. WILL CONTINUE TO MONITOR.
[2018-09-22] MEDS: BLOOD GLUCOSE MONITORING 1 DEV DEV FS SCH ×4 (06:43→21:24)
[2018-09-22] MEDS: ALBUTEROL SULFATE/IPRATROPIU 3 ML SOL IH SCH ×3 (06:52→18:40)
[2018-09-22 07:07] LABS: BASOPHILS % (AUTO) 0.4 % (0.0-2.0); EOSINOPHILS # (AUTO) 0.3 K/uL (0-0.4); EOSINOPHILS % (AUTO) 6.4 % (0.0-4.0); HEMATOCRIT 34.1 % (36-52); HEMOGLOBIN 11.1 g/dL (12.0-18.0); LYMPHOCYTES # (AUTO) 0.9 K/uL (2.0-11.5); LYMPHOCYTES % (AUTO) 21.6 % (20.5-51.1); MEAN CORPUSCULAR HEMOGLOBIN 27 pg (27-31); MEAN CORPUSCULAR HGB CONC 33 g/dL (33-37); MEAN CORPUSCULAR VOLUME 81.7 fL (80-94); MONOCYTES # (AUTO) 0.4 K/uL (0.8-1.0); MONOCYTES % (AUTO) 10.9 % (1.7-9.3); NEUTROPHILS # (AUTO) 2.4 K/uL (1.8-7.7); NEUTROPHILS % (AUTO) 60.7 % (42.2-75.2); PLATELET COUNT (AUTO) 111 K/uL (140-450); RED BLOOD CELL COUNT(AUTO) 4.17 MIL/uL (4.20-6.10); RED CELL DISTRIBUTION WIDTH 17.6 % (11.6-13.7)
--- NOTE | 2018-09-22 07:20 | NUR ---
PT REPORT RECEIVED FROM ASSISTANT PORTFOLIO MANAGER NURSE AT BEDSIDE. PT IS ASLEEP. PT IS ON 2L O2 NC. PT HAS A PICC LINE ON LUE. SKIN INTACT, REDNESS NOTED ON SACRUM. EDEMA AND DISCOLORATION OF BLE'S NOTED. PT IS ON 1000 ML/DAY FLUID RESTRICTION. CCHO60 DIET. NO ACUTE DISTRESS NOTED AT THIS TIME, WILL CONTINUE TO MONITOR. CALL LIGHT WITHIN REACH, BED IN LOW POSITION. FALL PRECAUTIONS IN PLACE.
[2018-09-22 07:28] LABS: ANION GAP 11.9 (8-16); CARBON DIOXIDE 26.1 mmol/L (21-32); CREATININE 1.3 mg/dL (0.7-1.3)
[2018-09-22 07:40] LABS: MAGNESIUM 1.9 mg/dL (1.8-2.4); PHOSPHORUS 4.3 mg/dL (2.5-4.9)
--- NOTE | 2018-09-22 07:41 | NUR ---
ENDORSED PT CARE TO DAY SHIFT NURSE TOM FOR CONTINUITY OF CARE.
[2018-09-22 08:00] VITALS: BP 94/62
[2018-09-22] MEDS: CARVEDILOL 3.125 MG TAB PO SCH ×2 (09:00→21:00)
[2018-09-22] MEDS: FUROSEMIDE 20 MG/2 ML VIAL IVP SCH ×2 (09:00→21:06)
[2018-09-22] MEDS: LACTOBACILLUS RHAMNOSUS GG 1 EACH CAP PO SCH (09:06)
[2018-09-22] MEDS: ASPIRIN 81 MG TAB.CHEW PO SCH (09:06)
[2018-09-22] MEDS: MIDODRINE 5 MG TAB PO SCH ×3 (09:07→16:58)
--- NOTE | 2018-09-22 09:19 | NUR ---
PT SEEN BY DR. MEDEL
--- NOTE | 2018-09-22 11:19 | NUR ---
PLAN SNF [facility]O IV ANTIBIOTICS AND P.T. [place] [facility] [place] CALLED [facility] AND SPOKE WITH TERA AND SHE WILL TAKE THE PATIENT BACK UPON DISCHARGE. FAXED PACKET TO HER INCLUDING ORDER. NO DISCHARGE DATE YET.
[2018-09-22] MEDS ORDERED: BUPIVACAINE-MPF 0.5% 30 ML VIAL INJ SCH (11:30)
--- NOTE | 2018-09-22 11:30 | NUR ---
CONSENT OBTAINED FROM PT FOR THORACENTESIS PROCEDURE TODAY.
[2018-09-22 12:00] VITALS: BP 96/64
--- NOTE | 2018-09-22 12:20 | NUR ---
PT HAD US GUIDED THORACENTESIS OF THE R LUNG AT 12:00, PERFORMED BY DR. GROVE. BUPIVACAINE WAS USED FOR ANESTHETIC, PT IS ALLERGIC TO LIDOCAINE. TOTAL OF 2025 ML OF YELLOW FLUID OUT. PT TOLERATED WELL. CONTINUING TO MONITOR.
[2018-09-22] MEDS: LEVOFLOXACIN 750 MG/D5W PREMIX 150 ML IV SCH (14:19)
[2018-09-22 16:00] VITALS: BP 97/64
--- NOTE | 2018-09-22 17:50 | NUR ---
PT SITTING UP IN BED, EATING DINNER, AND TALKING ON THE PHONE TO A FRIEND. NO S/S OF DISTRESS NOTED. NO C/O PAIN. CALL LIGHT WITHIN REACH. BED LOW. CONTINUING TO MONITOR.
--- NOTE | 2018-09-22 19:20 | NUR ---
RECEIVED BEDSIDE REPORT FROM AMANDA CUENCA, PATIENT IN BED ON 2 L VIA NC, NO SIGNS OF ACUTE DISTRESS. PICC IN RIGHT UPPER ARM, DOUBLE LUMEN, DRESSING INTACT, LAST CHANGED 09/17/18. V/S TAKEN NOTED B/P 102/69, REPORTS PAIN 6/10 IN BACK, WILL MEDICATE ACCORDING TO MD ORDER FOR PAIN. PATIENT NOTED TO BE PARTIALLY BLIND. LUNG SOUNDS DIMINISHED, DRESSING ON RIGHT BACK WHERE THORACENTESIS WAS PERFORMED, DRESSING INTACT, NO SIGNS OF BLEEDING. NOTED SACRAL REDNESS, OPTIFOAM APPLIED, PATIENT DENIES PAIN. EDEMA IN BOTH LOWER EXTREMITIES, SKIN DISCOLORATION SEEN. EXPLAINED PLAN OF CARE, UPDATED BORED, CALL LIGHT WITHIN REACH, BED IN LOWEST POSITION, WILL CONTINUE TO MONITOR.
--- NOTE | 2018-09-22 19:20 | NUR ---
PT REPORT GIVEN AT BEDSIDE TO NIGHTSHIFT NURSE. PT ENDORSED IN STABLE CONDITION.
[2018-09-22 20:00] VITALS: BP 102/69
--- NOTE | 2018-09-22 20:00 | NUR ---
PATIENT REQUEST TO EAT SANDWICH, DR MÉNDEZ SAID OKAY TO GIVE SANDWICH.
[2018-09-22] MEDS: HYDROcodone/APAP 5/325 MG 1 TAB TAB PO PRN (21:05)
--- NOTE | 2018-09-22 21:05 | NUR ---
GAVE NORCO FOR BACK PAIN 04/26. HELD COREG DUE TO LOW BLOOD PRESSURE.
[2018-09-22] MEDS: ATORVASTATIN 20 MG TAB PO SCH (21:06)
[2018-09-22] MEDS: CLINDAMYCIN PHOS 600MG/D5W PM 50 ML IV SCH (21:06)
--- NOTE | 2018-09-22 22:00 | NUR ---
RESTING IN BED ASLEEP, CALL LIGHT WITHIN REACH WILL CONTINUE TO MONITOR.
[2018-09-23] VITALS: BP 99/89
--- NOTE | 2018-09-23 | NUR ---
V/S TAKEN ALL WITHIN PATIENTS BASELINE, DENIES PAIN, ON 2 L NC, WILL CONTINUE TO MONITOR.
--- NOTE | 2018-09-23 02:00 | NUR ---
RESTING IN BED, USED URINAL, EMPTIED 5OO ML DARK YELLOW URINE, CALL LIGHT WITHIN REACH, WILL CONTINUE TO MONITOR.
[2018-09-23 04:00] VITALS: BP 95/80
[2018-09-23] MEDS: CLINDAMYCIN PHOS 600MG/D5W PM 50 ML IV SCH ×3 (04:21→20:31)
--- NOTE | 2018-09-23 04:21 | NUR ---
V/S TAKEN, B/P 95/80 HR 78. DUE CLINDAMYCIN GIVEN, CALL LIGHT WITHIN REACH, WILL CONTINUE TO MONITOR.
[2018-09-23] MEDS: ALBUTEROL SULFATE/IPRATROPIU 3 ML SOL IH SCH ×3 (06:36→19:51)
--- NOTE | 2018-09-23 06:36 | NUR ---
PT SLEEPING WITH NO SIGNS OF DISTRESS NOTED AT THIS TIME, NO HHN GIVEN
--- NOTE | 2018-09-23 06:45 | NUR ---
BLOOD GLUCOSE 73 NO COVERAGE NEEDED
[2018-09-23] MEDS: BLOOD GLUCOSE MONITORING 1 DEV DEV FS SCH ×4 (06:47→20:39)
[2018-09-23 06:56] LABS: ANION GAP 9.2 (8-16); BASOPHILS % (AUTO) 0.3 % (0.0-2.0); CARBON DIOXIDE 28.9 mmol/L (21-32); CREATININE 1.3 mg/dL (0.7-1.3); EOSINOPHILS # (AUTO) 0.2 K/uL (0-0.4); EOSINOPHILS % (AUTO) 5.2 % (0.0-4.0); HEMOGLOBIN 11.1 g/dL (12.0-18.0); LYMPHOCYTES # (AUTO) 0.8 K/uL (2.0-11.5); LYMPHOCYTES % (AUTO) 17.9 % (20.5-51.1); MEAN CORPUSCULAR HEMOGLOBIN 27 pg (27-31); MEAN CORPUSCULAR HGB CONC 33 g/dL (33-37); MEAN CORPUSCULAR VOLUME 81.1 fL (80-94); MONOCYTES # (AUTO) 0.5 K/uL (0.8-1.0); MONOCYTES % (AUTO) 11.8 % (1.7-9.3); NEUTROPHILS # (AUTO) 2.9 K/uL (1.8-7.7); NEUTROPHILS % (AUTO) 64.8 % (42.2-75.2); PLATELET COUNT (AUTO) 114 K/uL (140-450); POTASSIUM 4.1 mmol/L (3.5-5.1); RED BLOOD CELL COUNT(AUTO) 4.19 MIL/uL (4.20-6.10); RED CELL DISTRIBUTION WIDTH 17.5 % (11.6-13.7); WHITE BLOOD COUNT (AUTO) 4.5 K/uL (4.8-10.8)
[2018-09-23 07:09] LABS: MAGNESIUM 1.8 mg/dL (1.8-2.4); PHOSPHORUS 4.4 mg/dL (2.5-4.9)
--- NOTE | 2018-09-23 07:10 | NUR ---
ENDORSED PATIENT TO DAY SHIFT NURSE, PATIENT STABLE.
--- NOTE | 2018-09-23 07:30 | NUR ---
RECEIVED PATIENT FROM THE RUBBER CURER RN. PATIENT IS AWAKE AND ALERT. PATIENT IS IN NC 2L/MIN. NO COMPLAINT OF PAIN AT THIS TIME. BED AT THE LOWEST POSITION WITH THE CALL LIGHT WITHIN REACH. WILL CONTINUE TO MAKE FREQUENT ROUNDS
[2018-09-23 08:00] VITALS: BP 100/70
[2018-09-23] MEDS: CARVEDILOL 3.125 MG TAB PO SCH ×2 (09:00→20:32)
[2018-09-23] MEDS: ASPIRIN 81 MG TAB.CHEW PO SCH (09:00)
[2018-09-23] MEDS: LACTOBACILLUS RHAMNOSUS GG 1 EACH CAP PO SCH (09:24)
[2018-09-23] MEDS: FUROSEMIDE 20 MG/2 ML VIAL IVP SCH ×2 (09:24→20:30)
[2018-09-23] MEDS: MIDODRINE 5 MG TAB PO SCH ×3 (09:25→17:23)
--- NOTE | 2018-09-23 10:00 | NUR ---
PATIENT IS ON THE PHONE, SITTING COMFORTABLY ON THE BED. CALL LIGHT WITHIN REACH AND BED AT THE LOWEST POSITION. PATIENT DENIES ANY PAIN OR DISTRESS
[2018-09-23 12:00] VITALS: BP 107/73
[2018-09-23] MEDS: LEVOFLOXACIN 750 MG/D5W PREMIX 150 ML IV SCH (13:59)
[2018-09-23] MEDS ORDERED: BUPIVACAINE-MPF 0.5% 30 ML VIAL INJ SCH (15:00)
--- NOTE | 2018-09-23 15:27 | NUR ---
09/23/18 RD FOLLOW UP COMPLETED PLEASE REFER TO NUTRITION ASSESSMENT UNDER CARE ACTIVITY FOR ESTIMATED NUTRITIONAL NEEDS. 1. CONTINUE [facility] VEGETARIAN DIET TOLERATED 2. RD TO FOLLOW-UP 5-7 DAYS, HIGH RISK [facility]ULWANT CLINE RD
[2018-09-23 16:00] VITALS: BP 94/62
--- NOTE | 2018-09-23 16:00 | NUR ---
PATIENT COMPLETED HIS LEFT THORACENTESIS PROCEDURE. 1000ML WAS COLLECTED. THE FLUID WAS SENT TO LAB FOR TESTING. PATIENT STATED THAT HE IS SLIGHTLY UNCOMFORTABLE FROM THE PROCEDURE BUT THE PAIN IS BEARABLE. PATIENT IS COMFORTABLY SITTING ON THE BED WITH THE EVELINA LIGHT WITHIN REACH.
--- NOTE | 2018-09-23 19:30 | NUR ---
PATIENT ENDORSED TO THE BLINDSTITCH LINING FELLER RN BY BEDSIDE. PATIENT IS AWAKE AND ALERT. PATIENT DENIES ANY PAIN.
--- NOTE | 2018-09-23 19:31 | NUR ---
RECEIVED PT AWAKE ON HIGH FOWLERS POSITION, VITAL SIGNS STABLE, BP ON THE LOW SIDE BUT STABLE, TOLERABLE PAIN AT THIS TIME, ON O2 AT 2L/NC, NO SOB NOTED, DIMINISHED LUNG SOUND, RT UA PICC LINE IN PLACE, DRESSING DRY AND INTACT, EDEMA NOTED TO BLE WITH SKIN DISCOLORATION AND DRYNESS NOTED, PT PARTIALLY BLIND TO BOTH EYES, PLAN OF CARE DISCUSS, SAFETY MEASURES IN PLACE, CALL LIGHT WITHIN REACH.
--- NOTE | 2018-09-23 19:54 | NUR ---
FOUND PT ON 2 L NC. PER PT HE DOESNT USE OXYGEN AT HOME. OXYGEN OFF AND WILL CONTINUE TO MONITOR. SPO2 98%. RN AWARE.
[2018-09-23 20:00] VITALS: BP 95/58
[2018-09-23] MEDS: ATORVASTATIN 20 MG TAB PO SCH (20:30)
[2018-09-23] MEDS: HYDROcodone/APAP 5/325 MG 1 TAB TAB PO PRN (20:31)
--- NOTE | 2018-09-23 20:40 | NUR ---
BLOOD SUGAR CHECKED WITH 139 RESULT, NO COVERAGE NEEDED, SNACK PROVIDED, DUE LASIX GIVEN BUT HELD COREG DUE TO DECREASE BP, ALL NEEDS ATTENDED.
[2018-09-23 21:58] LABS: LACTATE DEHYDROGENASE 49 U/L (85-227)
--- NOTE | 2018-09-23 22:25 | NUR ---
PT VOIDING FREELY PER URINAL, MONITORED CLOSELY.
[2018-09-24] VITALS: BP 86/53
--- NOTE | 2018-09-24 | NUR ---
PT SLEEPING, EASILY AROUSABLE, VITAL SIGNS TAKEN, BP-86/53 (64), PT ASYMPTOMATIC, DENIES PAIN, NO SOB NOTED, DR ALSTON IS AWARE, STATED TO CONTINUE MONITOR THE PT.
[2018-09-24 04:00] VITALS: BP 83/57
--- NOTE | 2018-09-24 04:00 | NUR ---
PT SLEEPING, VITAL SIGNS TAKEN, BP ON THE LOW SIDE BUT MAP IS ABOVE 65, ASYMPTOMATIC, NO SOB OR PAIN NOTED, MONITORED CLOSELY.
[2018-09-24] MEDS: CLINDAMYCIN PHOS 600MG/D5W PM 50 ML IV SCH ×3 (05:03→20:42)
--- NOTE | 2018-09-24 06:00 | NUR ---
BLOOD SUGAR CHECKED WITH 123 RESULT, NO DISTRESS NOTED, MONITORED CLOSELY.
[2018-09-24 06:45] LABS: BASOPHILS % (AUTO) 0.3 % (0.0-2.0); EOSINOPHILS # (AUTO) 0.2 K/uL (0-0.4); EOSINOPHILS % (AUTO) 4.2 % (0.0-4.0); HEMOGLOBIN 11.3 g/dL (12.0-18.0); LYMPHOCYTES # (AUTO) 0.8 K/uL (2.0-11.5); MEAN CORPUSCULAR HEMOGLOBIN 27 pg (27-31); MEAN CORPUSCULAR HGB CONC 33 g/dL (33-37); MEAN CORPUSCULAR VOLUME 81.1 fL (80-94); MONOCYTES # (AUTO) 0.6 K/uL (0.8-1.0); MONOCYTES % (AUTO) 10.6 % (1.7-9.3); NEUTROPHILS # (AUTO) 3.8 K/uL (1.8-7.7); NEUTROPHILS % (AUTO) 70.9 % (42.2-75.2); PLATELET COUNT (AUTO) 134 K/uL (140-450); RED BLOOD CELL COUNT(AUTO) 4.19 MIL/uL (4.20-6.10); RED CELL DISTRIBUTION WIDTH 17.4 % (11.6-13.7); WHITE BLOOD COUNT (AUTO) 5.4 K/uL (4.8-10.8)
[2018-09-24] MEDS: ALBUTEROL SULFATE/IPRATROPIU 3 ML SOL IH SCH ×3 (07:12→19:12)
--- NOTE | 2018-09-24 07:15 | NUR ---
RECEIVED PATIENT IN BED. PATIENT AWAKE AND ALERT. NO S/S OF DISTRESS. BED LOWERED WITH CALL LIGHT WITHIN REACH.
--- NOTE | 2018-09-24 07:20 | NUR ---
PT AWAKE, NO DISTRESS NOTED, REPORT GIVEN TO AMANDA GRAMAJO FOR CONTINUITY OF CARE.
[2018-09-24 07:24] LABS: ANION GAP 10.9 (8-16); CARBON DIOXIDE 28.8 mmol/L (21-32); CREATININE 1.4 mg/dL (0.7-1.3); POTASSIUM 3.7 mmol/L (3.5-5.1)
[2018-09-24 07:30] LABS: MAGNESIUM 1.8 mg/dL (1.8-2.4); PHOSPHORUS 4.6 mg/dL (2.5-4.9)
[2018-09-24] MEDS: BLOOD GLUCOSE MONITORING 1 DEV DEV FS SCH ×4 (07:38→20:42)
[2018-09-24 08:00] VITALS: BP 84/53
--- NOTE | 2018-09-24 08:30 | NUR ---
PATIENT SEEN BY DR MEDEL AND WAS INFORMED ABOUT THE DISCHARGE PLAN. PATIENT VERBALIZED UNDERSTANDING
[2018-09-24] MEDS ORDERED: [UNRECOGNIZED DRUG - CODE] IV (08:35)
[2018-09-24] MEDS ORDERED: CLIN600P4 IV (08:40)
[2018-09-24] MEDS: FUROSEMIDE 20 MG/2 ML VIAL IVP SCH (09:00)
[2018-09-24] MEDS: CARVEDILOL 3.125 MG TAB PO SCH ×2 (09:00→21:00)
[2018-09-24] MEDS: MIDODRINE 5 MG TAB PO SCH ×3 (09:32→16:12)
[2018-09-24] MEDS: LACTOBACILLUS RHAMNOSUS GG 1 EACH CAP PO SCH (09:33)
[2018-09-24] MEDS: ASPIRIN 81 MG TAB.CHEW PO SCH (09:33)
--- NOTE | 2018-09-24 10:26 | NUR ---
PATIENT ASLEEP IN BED. NO S/S OF DISTRESS NOTED
--- NOTE | 2018-09-24 11:27 | NUR ---
FRED NOTE CLINICAL PACKET INCLUDING MICROS FAXED TO [facility] ATTN: TERA. Addendum: 09/24/18 at 1248 by Rajwinder Stanford CM ORDER TO TRANSFER BACK TO [facility] ON IV ANTIBIOTIC AND RT SUPPORT FAXED TO [facility] [phone] AND LEFT VM TO FRED BLACKBURN PH# [phone]
[2018-09-24 12:00] VITALS: BP 90/60
[2018-09-24] MEDS: LEVOFLOXACIN 750 MG/D5W PREMIX 150 ML IV SCH (13:00)
--- NOTE | 2018-09-24 14:00 | NUR ---
PATIENT ASLEEP IN BED. NO S/S OF DISTRESS NOTED
--- NOTE | 2018-09-24 15:05 | NUR ---
FRED LÓPEZ SPOKE WITH TERA OF [facility] X [facility] TODAY FOLLOWING UP ON ROOM FOR PATIENT. PER TERA, THEIR DON HAS NOT REVIEWED THE PACKET YET BECAUSE THEY ARE VERY BUSY WITH SURVEYORS IN THEIR FACILITY. I GAVE HER THE NUMBER TO THE NURSING STATION WHERE PATIENT IS TO LET THEM KNOW WHEN THEY ALREADY HAVE THE BED AVAILABLE. PER FRED HOANG OF [facility] PH# [phone] PATIENT IS OUT OF AREA AND THE LAST TIME PATIENT WAS AT [facility] IT WAS [facility] WHO ISSUED THE AUTHORIZATION. PER [place] PHILLY HOANG, SHE HAS SPOKEN WITH [facility] FRED CANSECO PH# [phone] WHO SAID HE WILL JUST EXTEND THE AUTHORIZATION THAT WAS PREVIOUSLY ISSUED TO [facility] PRIOR TO THIS ADMISSION AND TO GO AHEAD AND TRANSFER PATIENT TO [facility]. PER LISBETH CANSECO HE ALREADY CALLED [facility] GIVING THEM A VERBAL AUTH AND TELLING THAT HE IS AUTHORIZING THE TRANSFER TO [facility]. HE ALSO STATED THAT FOR MEDICAL TRANSPORT TO USE [facility] PH# [phone] AND NO PRIOR AUTHORIZATION NEEDED BECAUSE THEY ARE CONTRACTED WITH [facility]. ROX PATEL AWARE.
[2018-09-24] MEDS: HYDROcodone/APAP 5/325 MG 1 TAB TAB PO PRN ×2 (15:11→22:24)
[2018-09-24 16:00] VITALS: BP 95/57
--- NOTE | 2018-09-24 18:15 | NUR ---
PATIENT WAS HAVING DINNER WITH FAMILY MEMBER PRESENT AT BEDSIDE WHEN PATIENT STARTED SHIVERING UNCONTROLLABLY AND C/O OF NAUSEA. TEMP CHECKED ORALLY 98.0. ZOFRAN ADMINISTERED . WILL CONTINUE TO MONITOR Addendum: 09/24/18 at 2007 by Shakeel Marrero RN ERROR. WRONG PATIENT
--- NOTE | 2018-09-24 18:35 | NUR ---
TPN PUT ON HOLD. PATIENT PLACED ON 2L O2 VIA NC Addendum: 09/24/18 at 2006 by Shakeel Marrero RN ERROR. WRONG PATIENT
--- NOTE | 2018-09-24 18:35 | NUR ---
PATIENT'S SHAKING INTENSITY INCREASED AND PATIENT STARTED VOMITING. SMALL AMOUNT OF CLEAR THICK LIQUID EMESIS NOTED. LIQUOR COMMISSIONER CALLED. DR CHITO HARRIS Addendum: 09/24/18 at 2007 by Shakeel Marrero RN ERROR. WRONG PATIENT
--- NOTE | 2018-09-24 19:40 | NUR ---
RECEIVED PATIENT AWAKE RESTING IN HIGH FOWLERS POSITION.EXPLAINED TO PATIENT PLAN OF CARE AND VERBALIZED UNDERSTANDING. EXPLAINED TO PATIENT TO CALL FOR HELP FOR ASSISTANCE. FALL PRECAUTION IN PLACE. CALL LIGHT WITHIN REACH.
--- NOTE | 2018-09-24 19:40 | NUR ---
PATIENT REPORT GIVEN AT BEDSIDE. PATIENT ENDORSED IN STABLE CONDITION
[2018-09-24 20:00] VITALS: BP 92/53
[2018-09-24] MEDS: ATORVASTATIN 20 MG TAB PO SCH (21:00)
[2018-09-24] MEDS: FUROSEMIDE 20 MG TAB PO SCH (21:00)
--- NOTE | 2018-09-24 21:00 | NUR ---
V/S TAKEN AND RECORDED. BS TAKEN NO COVERAGE PER SLIDING SCALE. ADMINISTERED SCHEDULE MEDICATION. TOLERATED WELL. ALL NEEDS ATTENDED. CALL LIGHT WITHIN REACH.
[2018-09-25] VITALS: BP 86/57
--- NOTE | 2018-09-25 | NUR ---
V/S TAKEN AND RECORDED. NO S/S OF DISTRESS NOTED. PATIENT BACK TO SLEEP. CALL LIGHT WITHIN REACH. ALL NEEDS ATTENDED.
--- NOTE | 2018-09-25 02:00 | NUR ---
CHECKED PATIENT ASLEEP. NO S/S OF DISTRESS NOTED. CALL LIGHT WITHIN REACH. WILL CONTINUE TO MONITOR.
[2018-09-25 04:00] VITALS: BP 87/55
--- NOTE | 2018-09-25 04:00 | NUR ---
V/S TAKEN TAKEN. NO S/S OF DISTRESS NOTED. DENIES PAIN. WILL CONTINUE TO MONITOR.
[2018-09-25] MEDS: CLINDAMYCIN PHOS 600MG/D5W PM 50 ML IV SCH ×3 (04:11→20:14)
[2018-09-25 06:30] LABS: BASOPHILS % (AUTO) 0.5 % (0.0-2.0); EOSINOPHILS # (AUTO) 0.2 K/uL (0-0.4); HEMATOCRIT 34.4 % (36-52); HEMOGLOBIN 11.5 g/dL (12.0-18.0); LYMPHOCYTES # (AUTO) 0.7 K/uL (2.0-11.5); LYMPHOCYTES % (AUTO) 15.3 % (20.5-51.1); MEAN CORPUSCULAR HEMOGLOBIN 27 pg (27-31); MEAN CORPUSCULAR HGB CONC 33 g/dL (33-37); MEAN CORPUSCULAR VOLUME 80.8 fL (80-94); MONOCYTES # (AUTO) 0.6 K/uL (0.8-1.0); MONOCYTES % (AUTO) 12.5 % (1.7-9.3); NEUTROPHILS # (AUTO) 3.1 K/uL (1.8-7.7); NEUTROPHILS % (AUTO) 66.7 % (42.2-75.2); PLATELET COUNT (AUTO) 132 K/uL (140-450); RED BLOOD CELL COUNT(AUTO) 4.26 MIL/uL (4.20-6.10); RED CELL DISTRIBUTION WIDTH 17.1 % (11.6-13.7); WHITE BLOOD COUNT (AUTO) 4.6 K/uL (4.8-10.8)
[2018-09-25 06:47] LABS: ANION GAP 9.6 (8-16); CARBON DIOXIDE 28.3 mmol/L (21-32); CREATININE 1.3 mg/dL (0.7-1.3); POTASSIUM 3.9 mmol/L (3.5-5.1)
[2018-09-25] MEDS: ALBUTEROL SULFATE/IPRATROPIU 3 ML SOL IH SCH ×4 (06:58→18:42)
--- NOTE | 2018-09-25 07:10 | NUR ---
RECEIVED PATIENT ON ROOM AIR, O2 SAT 99%. SCHEDULED BREATHING TREATMENT ADMINISTERED. PATIENT TOLERATED TX WELL, NO ADVERSE SIDE EFFECTS. NO RESPIRATORY DISTRESS NOTED AT THIS TIME. WILL CONTINUE TO MONITOR.
[2018-09-25 07:16] LABS: PHOSPHORUS 4.7 mg/dL (2.5-4.9)
--- NOTE | 2018-09-25 07:20 | NUR ---
GAVE REPORT TO AM SHIFT NURSE AT BEDSIDE FOR CONTINUITY OF CARE. PATIENT IN STABLE CONDITION.
--- NOTE | 2018-09-25 07:25 | NUR ---
RECEIVED REPORT FROM VOCATIONAL TRAINING INSTRUCTOR NURSE. PT IS SLEEPING IN BED, SEMI FOWLERS POSITION, PT IS EASILY AWAKEN, PT IS AAOX4, AMBULATES WITH ASSIST, PT HAS PICC LINE ON RIGHT UPPER ARM, PATENT, INTACT, FLUSHING WELL, PT IS ON ROOM AIR, PT HAS BILATERAL LOWER EXTREMITIES DISCOLORATION, NO S/S OF RESPIRATORY DISTRESS OR DISCOMFORT NOTED, DISCUSSED PLAN OF CARE WITH PT, PT VERBALIZED UNDERSTANDING, SAFETY/FALL PRECAUTIONS ARE IN PLACE, CALL LIGHT IS WITHIN REACH, WILL CONTINUE TO MONITOR.
[2018-09-25 08:00] VITALS: BP 95/63
[2018-09-25] MEDS: BLOOD GLUCOSE MONITORING 1 DEV DEV FS SCH ×4 (08:11→20:10)
[2018-09-25] MEDS: FUROSEMIDE 20 MG TAB PO SCH ×2 (09:00→20:10)
[2018-09-25] MEDS: CARVEDILOL 3.125 MG TAB PO SCH ×2 (09:00→20:12)
[2018-09-25] MEDS: MIDODRINE 5 MG TAB PO SCH ×3 (09:11→17:24)
[2018-09-25] MEDS: LACTOBACILLUS RHAMNOSUS GG 1 EACH CAP PO SCH (09:12)
[2018-09-25] MEDS: ASPIRIN 81 MG TAB.CHEW PO SCH (09:12)
--- NOTE | 2018-09-25 09:20 | NUR ---
CALLED TERA THIS MORNING AT [facility]. SHE SAID SHE WILL BE ABLE TO TAKE THE PATIENT TODAY. WILL CALL ME LATER WITH THE ROOM NUMBER.
[2018-09-25 12:00] VITALS: BP 95/71
[2018-09-25] MEDS: LEVOFLOXACIN 750 MG/D5W PREMIX 150 ML IV SCH (14:30)
--- NOTE | 2018-09-25 15:44 | NUR ---
RECEIVED A CALL FROM TERA FROM [facility]. THE PATIENT CAN GO TO ROOM 30B UNDER DR. PAREDES ANYTIME. SHE STILL NEEDS AUTH FROM [facility]. I CALLED [facility] SINCLA[facility] AND SPOKE WITH AJITH. ,PHONE [phone]. AT FIRST HE SAID OK TO SEND PATIENT TO [facility]. HE THEN CALLED BACK AND SAID TO HOLD TRANSFER TO [facility]. HE IS TRYING TO VERIFY CONTRACT WITH [facility]. POS. NEED YIN WITH [facility]. HE SAID HE WOULD CALL THE FLOOR AND [facility] WHEN IT IS OKAY TO SEND THE PATIENT. I INFORMED FLAKO PATEL, CHARGE NURSE TO HOLD TRANSFER. WHEN PATIENT DISCHARGED, USE [facility] FOR TRANSPORT [phone].
--- NOTE | 2018-09-25 15:53 | NUR ---
CALLED [facility] AND GAVE REPORT TO GRAHAM. PT GOING TO ROOM 305. I LET HER KNOW I WAS STILL WAITING FOR A SURGICAL TERRITORY MANAGER TIME.
[2018-09-25 16:00] VITALS: BP 92/68
--- NOTE | 2018-09-25 16:00 | NUR ---
PER CHARGE NURSE, FACILITY WILL CALL US WITH LITIGATION MANAGER TIME. THERE WAS AN ISSUE WITH THE INSURANCE AUTHORIZATION.
--- NOTE | 2018-09-25 19:15 | NUR ---
ENDORSED PT TO SENIOR CHEMICAL ENGINEER NURSE FOR CONTINUITY OF CARE. PT STABLE AT THIS TIME.
--- NOTE | 2018-09-25 19:15 | NUR ---
RECEIVED REPORT FROM LYDIA RN DAYSHIFT NURSE AT BEDSIDE FOR CONTINUITY OF CARE, PT IN STABLE CONDITION.
[2018-09-25 20:00] VITALS: BP 101/62
[2018-09-25] MEDS: ATORVASTATIN 20 MG TAB PO SCH (20:09)
--- NOTE | 2018-09-25 21:00 | NUR ---
PT SITTING UP IN LOW BED WITH SIDE RAILS U X2 AND HOB UP 45%. PT PIC LINE FLUSHED PATENT AND CLINDAMYCIN ADMINISTERED VIA PICC LINE. PT C/O THAT MEDICATION [place]O AND REQUESTS MEDICATION BE ADMINISTERED AT 75MLS/HR INSTEAD OF 100MLS/HR. PT ALSO REQUESTED NEW YELLOW SOCKS WHICH WERE PROVIDED. V/S FOLLOWS T 98.5 P 83 R 18 B/P 101/62 02 95% WITH R/A.
--- NOTE | 2018-09-25 21:10 | NUR ---
COREG HELD DUE TO LOW B/P 101/62.
[2018-09-25] MEDS: INSULIN LISPRO SLIDING SCALE 100 UNITS/ML VIAL SUBQ PRN (21:44)
--- NOTE | 2018-09-25 22:00 | NUR ---
2 UNITS OF HUMALOG PROVIDED FOR COVERAGE. PT F/S 159. PT REQUEST SANDWICH INSTEAD OF SNACK B/C HE DOESN'T WANT TO DRINK MILK. MSG LEFT WITH HOUSE SOUP TO DELIVER SANDWICH. IV ABT COMPLETED NO C/O OF PAIN AT THIS TIME. IV SITE FLUSHED PATENT. PT ALSO PROVIDED EXTRA BLANKETS REQUESTED.
[2018-09-25] MEDS: ACETAMINOPHEN 325 MG TAB PO PRN (23:18)
--- NOTE | 2018-09-25 23:20 | NUR ---
GRAHAM FROM [facility] CALLED REGARDING ARRIVAL OF PT TO [facility]. [facility] CALLED BACK AND VICTOR M BILLINGSLEY WAS GIVEN THE MESSAGE REGARDING TRANSPORT TO GIVE TO GRAHAM RN AT [facility]. PT IS AWAITING AUTHORIZATION NUMBER IN ORDER TO ARRANGE TRANSPORT BACK TO [facility], AND THAT PT WOULD REMAIN HERE TONIGHT AND POSSIBLE TOMMORROW MAY BE TRANSPORTED IF THERE IS AN AUTHORIZATION CODE FROM PT INSURANCE TO TRANSFER PT TO [facility]. PT MADE AWARE OF TRANSPORT SITUATION. PT ALSO C/O MILD BACK PAIN 3/10 GIVEN PRN TYLENOL AWAITING EFFECT.
[2018-09-26] VITALS: BP 85/53
--- NOTE | 2018-09-26 00:38 | NUR ---
PT SLEEPING POSITIVE EFFECT OF TYLENOL NOTED.V/S FOLLOWS T 97.9 P 66 R 18 B/P 85/53 02 97%.
--- NOTE | 2018-09-26 01:20 | NUR ---
PT TURNED CHANGED AND REPOSITIONED. BED RETURNED IN LOW POSITION WITH ALL FALLS PRECAUTIONS IN PLACE.
--- NOTE | 2018-09-26 02:00 | NUR ---
PT SLEEPING NO S/S OF PAIN OR DISTRESS NOTED. BED LOW CALL SPENCER IN REACH AND ALL FALLS PRECAUTIONS IN PLACE PICC LINE INTACT AND RUNNING N/S ORDERED.
[2018-09-26 04:00] VITALS: BP 89/61
--- NOTE | 2018-09-26 04:12 | NUR ---
PT AWOKE WITH C/O PAIN IN BUTTOCKS AND RIGHT ARM. PT WAS REPOSITIONED AND IS NOW REQUESTING A STRONGER PAIN MEDICATION THAN TYLENOL DUE TO PAIN SCALE 7/10. RESIDENT MD DR. ROBLES NOTIFIED AND ORDERING NORCO 5/325MG X1 DOSE. V/S T 97.8 P 68 R 20 B/P 89/61 02 94 WITH R/A.
[2018-09-26] MEDS ORDERED: HYDROcodone/APAP 5/325 MG 1 TAB TAB PO SCH (04:30)
[2018-09-26] MEDS: CLINDAMYCIN PHOS 600MG/D5W PM 50 ML IV SCH ×3 (04:37→21:37)
--- NOTE | 2018-09-26 04:44 | NUR ---
GIVEN NORCO 5/325MG FOR PAIN IN BUTTOCKS AND ARM 05/26 WILL REEVALUATE FOR PAIN RELIEF. PT ALSO GIVEN SNACK SO THAT PT STOMACH WOULD NOT BE UPSET.
[2018-09-26] MEDS: ALBUTEROL SULFATE/IPRATROPIU 3 ML SOL IH SCH ×3 (06:26→18:58)
[2018-09-26 06:35] LABS: BASOPHILS % (AUTO) 0.4 % (0.0-2.0); EOSINOPHILS # (AUTO) 0.2 K/uL (0-0.4); EOSINOPHILS % (AUTO) 4.8 % (0.0-4.0); HEMATOCRIT 35.2 % (36-52); HEMOGLOBIN 11.6 g/dL (12.0-18.0); LYMPHOCYTES # (AUTO) 0.7 K/uL (2.0-11.5); LYMPHOCYTES % (AUTO) 15.9 % (20.5-51.1); MEAN CORPUSCULAR HEMOGLOBIN 27 pg (27-31); MEAN CORPUSCULAR HGB CONC 33 g/dL (33-37); MEAN CORPUSCULAR VOLUME 81.2 fL (80-94); MONOCYTES # (AUTO) 0.4 K/uL (0.8-1.0); MONOCYTES % (AUTO) 9.6 % (1.7-9.3); NEUTROPHILS # (AUTO) 3.1 K/uL (1.8-7.7); NEUTROPHILS % (AUTO) 69.3 % (42.2-75.2); PLATELET COUNT (AUTO) 137 K/uL (140-450); RED BLOOD CELL COUNT(AUTO) 4.34 MIL/uL (4.20-6.10); RED CELL DISTRIBUTION WIDTH 17.7 % (11.6-13.7); WHITE BLOOD COUNT (AUTO) 4.4 K/uL (4.8-10.8)
[2018-09-26] MEDS: BLOOD GLUCOSE MONITORING 1 DEV DEV FS SCH ×4 (06:36→21:37)
[2018-09-26 07:06] LABS: MAGNESIUM 1.9 mg/dL (1.8-2.4); PHOSPHORUS 4.3 mg/dL (2.5-4.9)
[2018-09-26 07:08] LABS: ANION GAP 10.7 (8-16); CREATININE 1.4 mg/dL (0.7-1.3); POTASSIUM 3.7 mmol/L (3.5-5.1)
--- NOTE | 2018-09-26 07:20 | NUR ---
REPORT GIVEN TO BETH RN DAY SHIFT NURSE AT BEDSIDE FOR CONTINUITY OF CARE, PT IN STABLE CONDITION.
--- NOTE | 2018-09-26 07:35 | NUR ---
RECEIVED PATIENT FROM BRINE TANK SEPARATOR OPERATOR RN BY BEDSIDE. PATIENT IS ALERT AND ORIENTED. PATIENT HAS EVEN, UNLABORED RESPIRATION ON ROOM AIR. SKIN DRY AND WARM. PICC LINE ON THE RIGHT ARM IS PATENT AND INTACT. PATIENT DENIES ANY PAIN AT THIS TIME. BED AT THE LOWEST POSITION AND CALL LIGHT WITHIN REACH.
[2018-09-26 08:10] VITALS: BP 91/60
[2018-09-26] MEDS: CARVEDILOL 3.125 MG TAB PO SCH ×2 (09:00→21:00)
[2018-09-26] MEDS: FUROSEMIDE 20 MG TAB PO SCH ×2 (09:00→21:00)
[2018-09-26] MEDS: MIDODRINE 5 MG TAB PO SCH ×3 (09:18→16:52)
[2018-09-26] MEDS: ASPIRIN 81 MG TAB.CHEW PO SCH (09:18)
[2018-09-26] MEDS: LACTOBACILLUS RHAMNOSUS GG 1 EACH CAP PO SCH (09:18)
--- NOTE | 2018-09-26 09:29 | NUR ---
PATIENT IS AWAKE BUT SITTING COMFORTABLY ON HIS BED. PATIENT DENIES ANY PAIN OR DISTRESS AT THIS TIME. BED ON THE LOWEST POSITION AND CALL LIGHT WITHIN REACH.
--- NOTE | 2018-09-26 09:55 | NUR ---
CALLED [facility] [phone] (CATHERINE) REGARDING AUTHORIZATION TO TRANSFER PT TO [facility], CATHERINE WILL PAGE AJITH TO INQUIRE AND CALL US BACK. Addendum: 09/26/18 at 1012 by Layne Soto RN [facility] CALL[facility], [facility].
--- NOTE | 2018-09-26 10:04 | NUR ---
[facility] TO TELL [facility] THAT [facility]IZATION WILL NEED TO COME FROM [facility] BECAUSE PATIENT IS OUTSIDE OF [facility]. [facility]ON GAVE US WEEKEND NUMBER FOR [facility] [phone].
--- NOTE | 2018-09-26 10:29 | NUR ---
CALLED [facility] [phone], SPOKE WITH LENCHO, NO AUTHORIZATION FOR [facility], LENCHO SUGGESTS CALLING BACK ON FRIDAY
[2018-09-26 12:00] VITALS: BP 95/65
--- NOTE | 2018-09-26 12:10 | NUR ---
PATIENT IS STABLE AND DENIES ANY PAIN. EVEN LABORED RESPIRATION ON ROOM AIR. BED IS AT THE LOWEST POSITION WITH CALL LIGHT WITHIN REACH.
--- NOTE | 2018-09-26 13:30 | NUR ---
PATIENT IS IN STABLE CONDITION AND DENIES ANY PAIN AT THIS TIME. PATIENT HAS EVEN, UNLABORED RESPIRATION ON ROOM AIR. BED IS AT THE LOWEST POSITION AND CALL LIGHT WITHIN REACH. THE PORTABLE TABLE WITH HIS BELONGINGS ARE ALSO WITHIN REACH.
[2018-09-26] MEDS: LEVOFLOXACIN 750 MG/D5W PREMIX 150 ML IV SCH (13:45)
--- NOTE | 2018-09-26 15:25 | NUR ---
PATIENT AWAKE, ALERT. RESPIRATION EVEN, UNLABOR ON ROOM AIR. NO DISTRESS NOTED AT THIS TIME
[2018-09-26 16:00] VITALS: BP 95/57
--- NOTE | 2018-09-26 18:30 | NUR ---
PATIENT WAS AWAKE, ALERT. RESPIRATION EVEN, UNLABOR ON ROOM AIR. NO DISTRESS NOTED AT THIS TIME. IV PATENT AND INTACT
--- NOTE | 2018-09-26 19:33 | NUR ---
PATIENT ENDORSED TO FUDGER RN BY BEDSIDE. BED AT THE LOWEST POSITION AND CALL LIGHT WITHIN REACH.
--- NOTE | 2018-09-26 19:34 | NUR ---
RECEIVED REPORT FROM DAY SHIFT NURSE LINDA-RN AT BEDSIDE. AOX4, ON ROOM AIR WITH DOUBLE LUMEN PICC LINE ON RIGHT ARM- SL. BILATERAL PARTIALLY BLIND, WITH DISCOLORED/EDEMA BLE. PT AMBULATORY HOWEVER CHOOSES TO USE BEDPAN AND URINAL. DISCUSSED PLAN OF CARE AND PT VERBALIZED UNDERSTANDING. NO S/S OF RESPIRATORY DISTRESS OR DISCOMFORT NOTED AT THIS TIME. BED IN LOWEST POSITION, BED BREAKS ON, BOTH SIDE RAILS UP AND BED ALARM ON. ON FLUID RESTRICTIONS 1,000ML/DAY. BED SIDE TABLE AND CALL LIGHT ARE WITHIN REACH. WILL CONTINUE TO MONITOR.
[2018-09-26 20:00] VITALS: BP 90/60
--- NOTE | 2018-09-26 20:00 | NUR ---
VITAL SIGNS TAKEN AND TOLERATED WELL- LOW B/P NOTED. BLOOD GLUCOSE 159- WILL ADMINISTER INSULIN COVERAGE. NO S/S OF RESPIRATORY DISTRESS OR DISCOMFORT NOTED AT THIS TIME. WILL CONTINUE TO MONITOR.
[2018-09-26] MEDS: ATORVASTATIN 20 MG TAB PO SCH (21:36)
[2018-09-26] MEDS: INSULIN LISPRO SLIDING SCALE 100 UNITS/ML VIAL SUBQ PRN (21:40)
--- NOTE | 2018-09-26 21:40 | NUR ---
SCHEDULED MEDICATION GIVEN. PT INSISTS THAT ANTIBIOTICS ARE PAINFUL TO GO THROUGH IV. CALLED DR. CHRISTOPHER AND SHE SAID ABX CAN BE RUN AT 50ML/HR INSTEAD OF 100ML/HR. COREG AND LASIX WERE NOT GIVEN DUE TO LOW B/P. INSULIN COVERAGE GIVEN AND TOLERATED WELL. NO S/S OF RESPIRATORY DISTRESS OR DISCOMFORT NOTED AT THIS TIME. WILL CONTINUE TO MONITOR.
[2018-09-26] MEDS: KETOROLAC 15 MG/ML VIAL IVP PRN (22:28)
--- NOTE | 2018-09-26 22:28 | NUR ---
PT C/O PAIN 8/10 ON RIBS, IV SITE AND HEAD. SPOKE WITH DR. CHRISTOPHER AND SHE PLACED AN ORDER FOR TORADOL. MEDICATION WAS ADMINISTERED AND PT TOLERATED WELL. NO S/S OF RESPIRATORY DISTRESS OR DISCOMFORT NOTED AT THIS TIME. WILL CONTINUE TO MONITOR.
[2018-09-26] MEDS ORDERED: KETOROLAC 15 MG/ML VIAL ONE (22:32)
[2018-09-27] VITALS: BP 81/56
--- NOTE | 2018-09-27 | NUR ---
VITAL SIGNS TAKEN AND TOLERATED WELL- LOW B/P NOTED. NO S/S OF RESPIRATORY DISTRESS OR DISCOMFORT NOTED AT THIS TIME. WILL CONTINUE TO MONITOR.
--- NOTE | 2018-09-27 02:00 | NUR ---
PT C/O WHEEZING AND REQUESTING BREATHING TREATMENT. CALLED RT FOR PRN BREATHING TX. PT RESTING IN BED. NO S/S OF RESPIRATORY DISTRESS OR DISCOMFORT NOTED AT THIS TIME. WILL CONTINUE TO MONITOR.
[2018-09-27] MEDS: ALBUTEROL SULFATE/IPRATROPIU 3 ML SOL IH PRN (02:06)
[2018-09-27 04:00] VITALS: BP 83/56
--- NOTE | 2018-09-27 04:00 | NUR ---
VITAL SIGNS TAKEN AND TOLERATED WELL. NO S/S OF RESPIRATORY DISTRESS OR DISCOMFORT NOTED AT THIS TIME. WILL CONTINUE TO MONITOR.
[2018-09-27] MEDS: CLINDAMYCIN PHOS 600MG/D5W PM 50 ML IV SCH (04:19)
--- NOTE | 2018-09-27 04:19 | NUR ---
SCHEDULED MEDICATION GIVEN AND TOLERATED WELL. NO S/S OF RESPIRATORY DISTRESS OR DISCOMFORT NOTED AT THIS TIME. WILL CONTINUE TO MONITOR.
--- NOTE | 2018-09-27 06:00 | NUR ---
BLOOD GLUCOSE 95- NO INSULIN COVERAGE GIVEN.
[2018-09-27] MEDS: BLOOD GLUCOSE MONITORING 1 DEV DEV FS SCH ×4 (06:28→20:52)
[2018-09-27] MEDS: ALBUTEROL SULFATE/IPRATROPIU 3 ML SOL IH SCH ×3 (06:34→19:02)
--- NOTE | 2018-09-27 07:04 | NUR ---
ENDORSED PT CARE TO DAY SHIFT NURSE EDILIA FOR CONTINUITY OF CARE.
[2018-09-27 07:35] VITALS: BP 97/58
--- NOTE | 2018-09-27 07:35 | NUR ---
RECEIVED PATIENT FROM DOG BARBER RN BY BEDSIDE. PATIENT IS ALERT AND ORIENTED. PATIENT HAS EVEN, UNLABORED RESPIRATION ON ROOM AIR. PATIENT STATES THAT HE HAS PAIN SCORE 5 (PAIN SCALE 0-10) AND REQUEST TO BE MEDICATED. WILL MEDICATE PER ORDER. SKIN IS DRY AND WARM. PATIENT HAD AN EPISODE OF TREMORS WHEN HE WOKE UP (WHILE STRETCHING) IN THE MORNING. HE SAID THAT HE DOES NOT TYPICALLY HAVE TREMORS WHEN HE WAKES UP BUT HE HAS EPISODES DURING HIS HOSPITAL STAY. HE BELIEVES THAT IT MAY BE FROM BEING ON THE BED ALL DAY. WILL NOTIFY THE PHYSICIAN REGARDING THIS MATTER. BED IS AT THE LOWEST POSITION WITH CALL LIGHT WITHIN REACH.
[2018-09-27] MEDS: CARVEDILOL 3.125 MG TAB PO SCH ×2 (09:00→20:53)
[2018-09-27] MEDS: CLOPIDOGREL 75 MG TAB PO SCH (09:00)
--- NOTE | 2018-09-27 09:30 | NUR ---
PATIENT IS AWAKE AND ALERT AND IS SITTING COMFORTABLY ON HIS BED. HE STATED THAT HE IS SORE ON HIS SACRAL AREA. WILL CHECK AND MONITOR THE AREA. BED IS AT THE LOWEST POSITION AND CALL LIGHT WITHIN REACH.
[2018-09-27] MEDS: ASPIRIN 81 MG TAB.CHEW PO SCH (10:16)
[2018-09-27] MEDS: LACTOBACILLUS RHAMNOSUS GG 1 EACH CAP PO SCH (10:17)
[2018-09-27] MEDS: ACETAMINOPHEN 325 MG TAB PO PRN (10:18)
[2018-09-27] MEDS: FUROSEMIDE 20 MG TAB PO SCH ×2 (10:18→20:49)
[2018-09-27] MEDS: MIDODRINE 5 MG TAB PO SCH ×3 (10:29→16:54)
--- NOTE | 2018-09-27 10:29 | NUR ---
SACRAL AREA WAS ASSESSED AND REDNESS WAS NOTED. OPTIFOAM WAS PUT ON THE AREA AND REPOSITION THE PATIENT.
--- NOTE | 2018-09-27 12:15 | NUR ---
PATIENT IS STABLE AND SITTING COMFORTABLY ON HIS BED. HE DENIES ANY PAIN AT THIS TIME. THE BED IS AT THE LOWEST POSITION AND CALL LIGHT WITHIN REACH.
[2018-09-27 16:20] VITALS: BP 90/62
--- NOTE | 2018-09-27 19:36 | NUR ---
ENDORSED PATIENT TO THE SNOW GROOMER RN BY BEDSIDE. PATIENT IS SLEEPING COMFORTABLY ON HIS BED.
--- NOTE | 2018-09-27 19:37 | NUR ---
REPORT RECEIVED FROM AM SHIFT AT BEDSIDE. PT IN STABLE CONDITION. AAOX4. INTRODUCED SELF TO PT. BOARD UPDATED. PT HAS A R PICC THAT IS SL PATENT AND INTACT. SKIN WARM, DRY, AND INTACT WITH NO OPEN WOUNDS. BED LOCKED IN LOW POSITION. CALL SPENCER WITHIN REACH. SAFETY PRECAUTIONS IN PLACE. NO COMPLAINTS OF PAIN. NO SOB.
--- NOTE | 2018-09-27 20:10 | NUR ---
CELLCEPT, COLACE, LOPRESSOR, PROGRAF, AND ZYLOPRIM GIVEN PO. PT TOLERATED WELL. Addendum: 09/27/18 at 2248 by Clayton Arteaga RN INCORRECT PATIENT.
[2018-09-27] MEDS: ATORVASTATIN 20 MG TAB PO SCH (20:49)
--- NOTE | 2018-09-27 20:49 | NUR ---
LIPITOR AND LASIX GIVEN PO. BS 147. NO INSULIN COVERAGE NEEDED. Addendum: 09/28/18 at 0215 by Clayton Arteaga RN COREG HELD DUE TO DECREASED BP.
[2018-09-27] MEDS: KETOROLAC 15 MG/ML VIAL IVP PRN (21:09)
[2018-09-28] VITALS: BP 88/54
--- NOTE | 2018-09-28 01:10 | NUR ---
PT SLEEPING COMFORTABLY. NO S/S OF DISTRESS NOTED. NO COMPLAINTS OF PAIN. NO SOB. WILL CONTINUE TO MONITOR.
--- NOTE | 2018-09-28 03:15 | NUR ---
PT SLEEPING COMFORTABLY. NO S/S OF DISTRESS NOTED. NO COMPLAINTS OF PAIN. NO SOB. WILL CONTINUE TO MONITOR.
--- NOTE | 2018-09-28 06:05 | NUR ---
BS 84. NO INSULIN COVERAGE NEEDED.
[2018-09-28] MEDS: BLOOD GLUCOSE MONITORING 1 DEV DEV FS SCH ×4 (06:08→21:13)
[2018-09-28] MEDS: ALBUTEROL SULFATE/IPRATROPIU 3 ML SOL IH SCH ×3 (06:34→18:55)
--- NOTE | 2018-09-28 07:30 | NUR ---
RECEIVED PT REPORT AT BEDSIDE FROM PUBLICITY PERSON NURSE. PT IS AWAKE AND ALERT, NO S/S OF ACUTE DISTRESS. PT IS ON ROOM AIR. PICC LINE NOTED ON RUE. BLE DISCOLORATION AND EDEMA, REDNESS ON SACRAL AREA. PT IS ON A CCHO60 DIET. CALL LIGHT WITHIN REACH. WILL CONTINUE TO MONITOR.
--- NOTE | 2018-09-28 07:30 | NUR ---
REPORT GIVEN TO AM NURSE AT BEDSIDE. PT IN STABLE CONDITION.
[2018-09-28 08:00] VITALS: BP 97/67
[2018-09-28] MEDS: FUROSEMIDE 20 MG TAB PO SCH ×2 (09:00→21:15)
[2018-09-28] MEDS: CARVEDILOL 3.125 MG TAB PO SCH ×2 (09:00→21:00)
[2018-09-28] MEDS: ASPIRIN 81 MG TAB.CHEW PO SCH (09:25)
[2018-09-28] MEDS: CLOPIDOGREL 75 MG TAB PO SCH (09:25)
[2018-09-28] MEDS: MIDODRINE 5 MG TAB PO SCH ×3 (09:25→16:53)
[2018-09-28] MEDS: LACTOBACILLUS RHAMNOSUS GG 1 EACH CAP PO SCH (09:26)
--- NOTE | 2018-09-28 15:08 | NUR ---
SPOKE WITH THE PATIENT. HE WANTS A BOARD AND CARE. HE SAYS HE COLLECTS SSI, NOT SURE OF AMOUNT, BUT HE THINKS A LITTLE OVER $900. THE MONEY GOES TO [employer], AND HE SAID HE LOST THE [employer] CARD. HE SAID HE WAS AT A MENS HOUSE IN [place], BUT IT IS NOW CLOSED. HE SAYS NO FAMILY OR FRIENDS. I LADY NAMED JUNE WAS SUPPOSE TO HELP HIM,[phone] IN [place]. HE SAID NO ANSWER ON THIS PHONE . I LEFT A MESSAGE, NO CALL BACK
[2018-09-28 16:00] VITALS: BP 112/66
--- NOTE | 2018-09-28 16:00 | NUR ---
VITAL SIGNS STABLE, BLOOD GLUCOSE 117, NO INSULIN COVERAGE REQUIRED. NO S/S OF DISTRESS, NO SOB, NO C/O PAIN. WILL CONTINUE TO MONITOR.
--- NOTE | 2018-09-28 16:11 | NUR ---
PT COMFORTABLE IN BED, TALKING ON THE PHONE. NO S/S OF DISTRESS OR C/O PAIN. VITAL SIGNS STABLE. CALL LIGHT WITHIN REACH. FALL PRECAUTIONS IN PLACE. CONTINUING TO MONITOR.
--- NOTE | 2018-09-28 19:20 | NUR ---
PT REPORT GIVEN AT BEDSIDE TO SUPERVISOR SEAMING NURSE. PT ENDORSED IN STABLE CONDITION.
--- NOTE | 2018-09-28 19:20 | NUR ---
RECEIVED REPORT FROM SILVIO PATEL DAY SHIFT AT BEDSIDE FOR CONTINUITY OF CARE, PT IN STABLE CONDITION.
--- NOTE | 2018-09-28 21:00 | NUR ---
PT IN LOW BED WITH HOB UP 45% AND SIDE RAILS UP X2 . V/S FOLLOWS T 97.3 P 81 R 18 B/P 112/71 02 97% WITH R/A. PT GIVEN LIPITOR ORDERED. PT DECLINED COREG BECAUSE HE WAS CONCERNED THAT HIS B/P WOULD DROP TOO LOW. COREG HELD DUE TO PT REQUEST. F/S 129 NO COVERAGE NEEDED. PT ALSO REQUESTED THAT HIS PLAVIX BE MOVED TO PM WHEN HE USED TO TAKE IT. PT CONCERNED ABOUT TAKING ASA 81 WITH PLAVIX, PRIMARY NURSE INFORMED PT THAT WILL BE NOTIFIED TO CHANGE TIMES OF MEDICATION. PT REQUESTING SANDWICH FOR SNACK. [employer] CREWMEMBER CALLED TO BRING SANDWICHES FOR SNACK. PT TURNED AND REPOSITIONED.
[2018-09-28] MEDS: ATORVASTATIN 20 MG TAB PO SCH (21:15)
[2018-09-28] MEDS: KETOROLAC 15 MG/ML VIAL IVP PRN (21:30)
--- NOTE | 2018-09-28 21:30 | NUR ---
PT C/O 5/10 GENERALIZED PAIN AND WAS GIVEN TORADOL 15MG IVP, WILL MONITOR EFFECT.
--- NOTE | 2018-09-28 22:00 | NUR ---
PT GIVEN DIABETIC SNACK AT BEDSIDE. PT ALSO TURNED AND REPOSITIONED. BED LOW SIDE RAILS UP X2 AND CALL SPENCER IN REACH.
[2018-09-29] VITALS: BP 100/66
--- NOTE | 2018-09-29 | NUR ---
PT FINISHED SNACK, HE IS IN LOW BED SIDE RAILS P X2 AND ALL OTHER FALLS PRECAUTIONS IN PLACE. PT WAS AGAIN TURNED AND REPOSITIONED REQUESTED. NO S/S OF PAIN OR DISTRESS NOTED.
--- NOTE | 2018-09-29 01:59 | NUR ---
SPOKE TO DR. ROBLES RESIDENT MD COVERING FOR SALMA GIL, TIME CHANGED FOR PLAVIX TO HS REQUESTED BY PT.
--- NOTE | 2018-09-29 02:00 | NUR ---
PT IN LOW BED SIDE RAILS UP X2 AND ALL FALLS PRECAUTIONS IN PLACE. PT SLEEPING SOUNDLY WITH NO S/S OF PAIN OR DISTRESS NOTED.
--- NOTE | 2018-09-29 03:45 | NUR ---
PT CONTINUES TO SLEEP SOUNDLY WITH NO S/S OF PAIN OR DISTRESS NOTED, ALL FALLS PRECAUTIONS IN PLACE.
--- NOTE | 2018-09-29 04:40 | NUR ---
PT C/O PAIN AND DISCOMFORT OF BREATHING. PT SAID HE FEELS THAT HIS THROAT IS CLOGGED AND HE CANT BREATHE. PT WAS NOTED TO BE BREATHING A LITLE QUICKER BUT HE WAS ABLE TO SPEAK CLEARLY WITH NO DISTRESS. PT FINGER STICK TAKEN AND F/S WAS 93. PT GIVEN SMALL AMOUNT OF JUICE (4OZ ) TO CLEAR HIS THROAT. POSITIVE EFFECT NOTED. PT PLACED ON 2L OF O2 FOR DISCOMFORT UNTIL BREATHING TX DUE AT 7AM. PT ALSO C/O 7/10 GENERALIZED PAIN , GIVEN IV TORADOL PRN . AWAITING EFFECT.
[2018-09-29] MEDS: KETOROLAC 15 MG/ML VIAL IVP PRN (05:06)
--- NOTE | 2018-09-29 05:30 | NUR ---
BLOOD DRAWN FROM PICC LINE FOR LAB DRAWS,BY PRIMARY RN ,THEN PICC LINE FLUSHED PATENT.
--- NOTE | 2018-09-29 06:00 | NUR ---
PT IN BED NO S/S OF PAIN OR DISTRESS NOTED F/S IS 135 NO COVERAGE NEEDED. PT REQUESTS TO KEEP N/C FOR COMFORT AT 2L UNTIL HE HAS NEB TX THIS AM. PT IS STATING 100% WITH 2L.
[2018-09-29] MEDS: ALBUTEROL SULFATE/IPRATROPIU 3 ML SOL IH SCH ×3 (06:28→18:59)
[2018-09-29 07:05] LABS: BASOPHILS % (AUTO) 0.5 % (0.0-2.0); EOSINOPHILS # (AUTO) 0.2 K/uL (0-0.4); EOSINOPHILS % (AUTO) 4.9 % (0.0-4.0); HEMATOCRIT 35.2 % (36-52); HEMOGLOBIN 11.5 g/dL (12.0-18.0); LYMPHOCYTES # (AUTO) 0.9 K/uL (2.0-11.5); LYMPHOCYTES % (AUTO) 19.2 % (20.5-51.1); MEAN CORPUSCULAR HEMOGLOBIN 27 pg (27-31); MEAN CORPUSCULAR HGB CONC 33 g/dL (33-37); MEAN CORPUSCULAR VOLUME 81.4 fL (80-94); MONOCYTES # (AUTO) 0.5 K/uL (0.8-1.0); MONOCYTES % (AUTO) 10.6 % (1.7-9.3); NEUTROPHILS # (AUTO) 3.1 K/uL (1.8-7.7); NEUTROPHILS % (AUTO) 64.8 % (42.2-75.2); PLATELET COUNT (AUTO) 134 K/uL (140-450); RED BLOOD CELL COUNT(AUTO) 4.32 MIL/uL (4.20-6.10); RED CELL DISTRIBUTION WIDTH 17.4 % (11.6-13.7); WHITE BLOOD COUNT (AUTO) 4.8 K/uL (4.8-10.8)
--- NOTE | 2018-09-29 07:15 | NUR ---
PT REPORT RECEIVED AT BEDSIDE FROM COMPRESSOR TECHNICIAN NURSE. PT IS ASLEEP AT THIS TIME. PICC LINE NOTED ON RUE. PT IS ON 1.5 L O2 NC AT THIS TIME, PLACED FOR C/O SOB DURING COMPRESSOR TECHNICIAN. O2 IS 96%, NO C/O SOB AT THIS TIME. SKIN IS INTACT. PT ON CCHO DIET. BED IS IN LOW POSITION, CALL LIGHT WITHIN REACH. WILL CONTINUE TO MONITOR.
--- NOTE | 2018-09-29 07:26 | NUR ---
REPORT GIVEN TO SILVIO PATEL DAYSHIFT AT BEDSIDE FOR CONTINUITY OF CARE, PT IN STABLE IN CONDITION.
[2018-09-29] MEDS: BLOOD GLUCOSE MONITORING 1 DEV DEV FS SCH ×4 (07:30→21:35)
[2018-09-29 07:51] LABS: ANION GAP 13.1 (8-16); CARBON DIOXIDE 25.7 mmol/L (21-32); CREATININE 1.2 mg/dL (0.7-1.3); POTASSIUM 3.8 mmol/L (3.5-5.1)
[2018-09-29 08:00] VITALS: BP 95/67
[2018-09-29 08:01] LABS: MAGNESIUM 1.9 mg/dL (1.8-2.4); PHOSPHORUS 4.3 mg/dL (2.5-4.9)
[2018-09-29] MEDS: CARVEDILOL 3.125 MG TAB PO SCH ×2 (09:00→21:14)
[2018-09-29] MEDS: FUROSEMIDE 20 MG TAB PO SCH ×2 (09:00→21:14)
--- NOTE | 2018-09-29 09:22 | NUR ---
I WENT TO SPEAK WITH THE PATIENT. HE SAID THAT HIS FRIEND JUNE CALLED HIM AND SHE WILL BE COMING TO PRODUCT MANUFACTURING PROFESSIONAL HIS CLOTHES AND [facility] AND THEN TO PICK HIM UP TO TAKE HIM TO [facility] IN [place]. DR. MEDEL SAID SHE SPOKE WITH THE PATIENT AND ASKED FOR THE PHONE NUMBER TO JUNE, SINCE THE NUMBER WE HAD WAS WRONG. HE REFUSED TO GIVE THE PHONE NUMBER. I CALLED [facility] AND SPOKE WITH DWAYNE, AND TOLD HER THAT JUNE WAS COMING TO [employer] THE PATIENT'S CLOTHES.
[2018-09-29] MEDS: ASPIRIN 81 MG TAB.CHEW PO SCH (09:25)
[2018-09-29] MEDS: MIDODRINE 5 MG TAB PO SCH ×3 (09:25→16:54)
[2018-09-29] MEDS: LACTOBACILLUS RHAMNOSUS GG 1 EACH CAP PO SCH (09:26)
--- NOTE | 2018-09-29 10:38 | NUR ---
DISCONTINUED PT'S PICC LINE PER MD. PT TOLERATED WELL, PICC LINE INTACT. DRY DRESSING PLACED OVER SITE.
--- NOTE | 2018-09-29 14:00 | NUR ---
PT'S FRIEND JUNE BROUGHT PT'S BELONGINGS OVER FROM THE [facility]. 1 LARGE BAG CLOTHES, 1 SMALL BAG AND 1 BOX OF OTHER PERSONAL ITEMS.
[2018-09-29 16:00] VITALS: BP 113/85
--- NOTE | 2018-09-29 19:20 | NUR ---
PT REPORT GIVEN TO JOB ANALYST NURSE AT BEDSIDE. PT ENDORSED IN STABLE CONDITION.
--- NOTE | 2018-09-29 19:20 | NUR ---
RECEIVED REPORT AT BEDSIDE FROM [facility] NURSE FOR CONTINUITY OF CARE, PT IN STABLE CONDITION.
--- NOTE | 2018-09-29 20:00 | NUR ---
PT IN LOW BED WITH SIDE RAILS UP X2 AND ALL FALLS PRECAUTIONS IN PLACE. [employer] CALLED BY RESIDENT DUE TO RESIDENT MISSING ITEMS AT [facility]. PT WANTED TO GIVE REPORT TO POLICE TO VERIFY TO INS[employer]ANCE COMPANY THAT HIS CPAP AND WALKER ARE MISSING FROM [facility]. [employer] AT BEDSIDE CONSULTING WITH PT.
--- NOTE | 2018-09-29 20:30 | NUR ---
PT V/S FOLLOWS T 99.4 P 108 R 18 B/P 120/83 02 97% WITH R/A. FINGERSTICK IS 99, NO COVERAGE NEEDED.
--- NOTE | 2018-09-29 21:00 | NUR ---
PT IN LOW BED WITH ALL FALLS PRECAUTIONS IN PLACE. PT HAD BMX1 AND VOIDED 100MLS IN A URINAL. PT TURNED AND CHANGED AND GIVEN HIS 2100 DUE MEDS OF COREG, LASIX, LIPITOR, COREG AND PLAVIX. PT C/O OF 6/10 PAIN IN RIGHT ARM FROM WHERE PICC LINE WAS D/CD AND C/O OF SACRAL PAIN. PRIMARY NURSE EXPLAINED THAT HE NO LONGER HAS IV ACCESS FOR TORADOL PAIN MED, SO THAT PRIMARY NURSE WILL SPEAK TO RESIDENT MD TO GET AN ORDER FOR PAIN. PT ALSO REQUESTED A SANDWICH FOR SNACK INSTEAD OF MILK AND CRACKERS.
[2018-09-29] MEDS: CLOPIDOGREL 75 MG TAB PO SCH (21:15)
[2018-09-29] MEDS: ATORVASTATIN 20 MG TAB PO SCH (21:15)
--- NOTE | 2018-09-29 22:30 | NUR ---
SPOKE WITH DR. ROBLES REGARDING PRN PAIN MEDICATION AND SHE ORDERED NORCO 5/325MG X1. [employer] M[employer] ALSO CALLED TO BRING UP SANDWICH FOR PT.
[2018-09-29] MEDS ORDERED: HYDROcodone/APAP 5/325 MG 1 TAB TAB PO SCH (23:00)
--- NOTE | 2018-09-29 23:00 | NUR ---
PT VOIDED ANOTHER 300MLS WAS TURNED AND REPOSITIONED. PT ALSO GIVEN SANDWICH REQUESTED AND NORCO 5/325MG FOR PAIN IN RIGHT ARM AND SACRAL AREA.
[2018-09-30] VITALS: BP 91/66
[2018-09-30] MEDS: ACETAMINOPHEN 325 MG TAB PO PRN (01:02)
--- NOTE | 2018-09-30 01:07 | NUR ---
PT VOIDED ANOTHER 400MLS OF URINE HE HAS C/O OF RESIDUAL PAIN IN ARM WITH 3/10 PAIN AND REQUESTING PRN TYLENOL 650 WHICH WAS GIVEN FOR MILD PAIN. PT TURNED AND REPOSITIONED V/S FOLLOWS T97.8 P 69 R 18 B/P 91/66 02 98 WITH 2L N/C. WILL CONTINUE TO MONITOR FOR EFFECT OF PAIN MEDS.
--- NOTE | 2018-09-30 02:30 | NUR ---
PT SITTING UP IN BED WITH ALL FALLS PRECAUTIONS IN PLACE AND CALL SPENCER IN REACH. PT SLEEPING PEACEFULLY.
--- NOTE | 2018-09-30 03:55 | NUR ---
PT CONTINUE TO SLEEP SOUNDLY NO S/S OF PAIN OR DISTRESS NOTED.
[2018-09-30] MEDS: BLOOD GLUCOSE MONITORING 1 DEV DEV FS SCH ×4 (05:30→21:24)
--- NOTE | 2018-09-30 05:35 | NUR ---
PT SITTING UP IN BED AO X3 NO C/O VOICED FINGERSTICK 99. NO COVERAGE NEEDED.
[2018-09-30 05:36] LABS: BASOPHILS % (AUTO) 0.5 % (0.0-2.0); EOSINOPHILS # (AUTO) 0.2 K/uL (0-0.4); EOSINOPHILS % (AUTO) 5.3 % (0.0-4.0); HEMATOCRIT 34.3 % (36-52); HEMOGLOBIN 11.4 g/dL (12.0-18.0); MEAN CORPUSCULAR HEMOGLOBIN 27 pg (27-31); MEAN CORPUSCULAR HGB CONC 33 g/dL (33-37); MEAN CORPUSCULAR VOLUME 80.5 fL (80-94); MONOCYTES # (AUTO) 0.5 K/uL (0.8-1.0); MONOCYTES % (AUTO) 11.2 % (1.7-9.3); NEUTROPHILS # (AUTO) 2.9 K/uL (1.8-7.7); PLATELET COUNT (AUTO) 142 K/uL (140-450); RED BLOOD CELL COUNT(AUTO) 4.26 MIL/uL (4.20-6.10); RED CELL DISTRIBUTION WIDTH 17.5 % (11.6-13.7); WHITE BLOOD COUNT (AUTO) 4.7 K/uL (4.8-10.8)
[2018-09-30 06:42] LABS: ANION GAP 10.7 (8-16); CARBON DIOXIDE 26.2 mmol/L (21-32); CREATININE 1.1 mg/dL (0.7-1.3); POTASSIUM 3.9 mmol/L (3.5-5.1)
[2018-09-30] MEDS: ALBUTEROL SULFATE/IPRATROPIU 3 ML SOL IH SCH ×3 (06:51→19:05)
[2018-09-30 06:53] LABS: PHOSPHORUS 4.2 mg/dL (2.5-4.9)
--- NOTE | 2018-09-30 07:35 | NUR ---
REPORT GIVEN TO LYDIA PATEL DAYSHIFT NURSE AT BEDSIDE FOR CONTINUITY OF CARE, PT IN STABLE CONDITION.
--- NOTE | 2018-09-30 07:40 | NUR ---
RECEIVED REPORT FROM PROJECT BUYER NURSE. PT IS AAOX4, ON BEDREST, NO IV ACCESS, PT IS ON O2 NC, 1.5 LITERS, NO S/S OF RESPIRATORY DISTRESS OR DISCOMFORT NOTED, PT HAS BILATERAL LOWER EXTREMITY DISCOLORATION, DISCUSSED PLAN OF CARE WITH PT, PT VERBALIZED UNDERSTANDING, SAFETY/FALL PRECAUTIONS ARE IN PLACE, CALL LIGHT WITHIN REACH, WILL CONTINUE TO MONITOR.
[2018-09-30 08:00] VITALS: BP 90/60
[2018-09-30] MEDS: MIDODRINE 5 MG TAB PO SCH ×3 (08:26→17:11)
[2018-09-30] MEDS: ASPIRIN 81 MG TAB.CHEW PO SCH (08:27)
[2018-09-30] MEDS: LACTOBACILLUS RHAMNOSUS GG 1 EACH CAP PO SCH (08:27)
--- NOTE | 2018-09-30 08:27 | NUR ---
DUE MEDICATION GIVEN, PT TOLERATED WELL, ALL NEEDS ARE MET. CALL LIGHT IS WITHIN REACH.
[2018-09-30] MEDS: CARVEDILOL 3.125 MG TAB PO SCH ×2 (08:31→21:00)
[2018-09-30] MEDS: FUROSEMIDE 40 MG TAB PO SCH ×2 (08:31→17:11)
--- NOTE | 2018-09-30 15:47 | NUR ---
09/30/18 RD FOLLOW UP ASSESSMENT COMPLETED PLEASE REFER TO NUTRITION ASSESSMENT UNDER CARE ACTIVITY FOR ESTIMATED NUTRITIONAL NEEDS. 1. CONTINUE CCHO 60 GM DIET TOLERATED 2. DIETITIAN PROVIDED DIABETES NUTRITIONAL EDUCATION 3. RD TO FOLLOW-UP 5-7 DAYS, LOW RISK KULWANT CLINE RD
[2018-09-30 16:00] VITALS: BP 116/85
--- NOTE | 2018-09-30 16:40 | NUR ---
PER CHARGE NURSE, PT REFUSED IV INSERTION AND DR. MEDEL MADE AWARE.
--- NOTE | 2018-09-30 19:15 | NUR ---
ENDORSED PT TO SODA WORKER NURSE FOR CONTINUITY OF CARE. PT STABLE AT THIS TIME.
--- NOTE | 2018-09-30 19:16 | NUR ---
RECD. RESTING IN BED, AWAKE, A/OX4. NOTED SLIGHT SOB WHEN TALKING. ELEVATED HOB 50 DEGREES. ON 02 AT 1 LITER N/C, 02 SAT - 96%. NO IV LINE, REFUSED TO HAVE A NEW ONE, STATED "THEY TOOK OFF MY PICC LINE, I'M HARDSTICK." NOTED DISCOLORATION ON RIGHT LEG AND SCALY SKIN OF LEFT LEG, BOTH WITH NON-PITTING EDEMA, ELEVATE ON TWO PILLOWS. PLAN OF CARE FOR THE SHIFT DISCUSSED. VERBALIZED UNDERSTANDING. DENIES PAIN 0/10.
--- NOTE | 2018-09-30 20:13 | NUR ---
Patient's Plan of Care was discussed and reviewed with MAJOR SALES ASSOCIATE: MENDOZA AGUILAR
--- NOTE | 2018-09-30 21:14 | NUR ---
DUE MEDICATIONS FOR THE NIGHT GIVEN.
[2018-09-30] MEDS: ATORVASTATIN 20 MG TAB PO SCH (21:17)
[2018-09-30] MEDS: CLOPIDOGREL 75 MG TAB PO SCH (21:17)
[2018-09-30] MEDS ORDERED: HYDROcodone/APAP 5/325 MG 1 TAB TAB PO SCH (21:45)
[2018-10-01] VITALS: BP 108/72
--- NOTE | 2018-10-01 | NUR ---
STILL AWAKE, WARM BLANKET GIVEN REQUESTED.
--- NOTE | 2018-10-01 01:30 | NUR ---
SLEEPING COMFORTABLY IN BED.
[2018-10-01] MEDS: ALBUTEROL SULFATE/IPRATROPIU 3 ML SOL IH SCH ×3 (06:51→19:01)
--- NOTE | 2018-10-01 07:15 | NUR ---
CONDITION REMAIN STABLE. ENDORSED TO AM SHIFT NURSE FOR CONTINUITY OF CARE.
--- NOTE | 2018-10-01 07:30 | NUR ---
RECEIVED PT REPORT AT BEDSIDE FROM COMMUNITY ACTION WORKER NURSE. PT SLEEPING, ROUSED BY NAME, OX4. NO IV ACCESS AT THIS TIME. PT IS RM AIR AT THIS TIME, NO S/S OF ACUTE DISTRESS. ANY PAIN AT THIS TIME. BED IS IN LOWEST POSITION, CALL LIGHT WITHIN REACH. WILL CONTINUE TO MONITOR.
[2018-10-01] MEDS: BLOOD GLUCOSE MONITORING 1 DEV DEV FS SCH ×4 (07:38→21:19)
[2018-10-01 08:00] VITALS: BP 100/68
[2018-10-01] MEDS: FUROSEMIDE 40 MG TAB PO SCH ×3 (08:33→09:46)
[2018-10-01] MEDS: CARVEDILOL 3.125 MG TAB PO SCH ×2 (08:34→21:00)
[2018-10-01] MEDS: MIDODRINE 5 MG TAB PO SCH ×3 (08:35→17:16)
[2018-10-01] MEDS: LACTOBACILLUS RHAMNOSUS GG 1 EACH CAP PO SCH (08:35)
[2018-10-01] MEDS: ASPIRIN 81 MG TAB.CHEW PO SCH (08:35)
--- NOTE | 2018-10-01 08:45 | NUR ---
MADE DR MEDEL AWARE THAT CARVEDILOL AND LASIX WERE HOLD DUE TO LOW BP, AND PT WANTS VIT D3, AND FISH OIL. DR MEDEL STATED OK TO GIVE LASIX, DON'T HOLD IT, OK TO GIVE PT'S OWN FISH OIL AND VIT D3.
--- NOTE | 2018-10-01 09:16 | NUR ---
CALLED [facility] AND SPOKE WITH BRUCE. SHE SAID SHE DOES NOT TAKE SSI AND CHARGES $2800/MO. SHE SAID SHE DID KNOW OF ANOTHER FACILITY IN [place] THAT TAKES SSI. SHE SAID SHE WOULD CALL THEM AND THEM CALL ME BACK. Addendum: 10/01/18 at 1000 by Evangelina Cowan PHONE FOR [facility] [phone]
--- NOTE | 2018-10-01 10:17 | NUR ---
THORACENTESIS IS PERFORMED BY DR GOSS AT PT'S BEDSIDE, 7ML BUPIVACAINE LOCAL ANESTHESIA IS USED
[2018-10-01 10:20] LABS: BASOPHILS % (AUTO) 0.4 % (0.0-2.0); EOSINOPHILS # (AUTO) 0.2 K/uL (0-0.4); HEMATOCRIT 37.5 % (36-52); HEMOGLOBIN 12.1 g/dL (12.0-18.0); LYMPHOCYTES # (AUTO) 0.7 K/uL (2.0-11.5); MEAN CORPUSCULAR HEMOGLOBIN 26 pg (27-31); MEAN CORPUSCULAR HGB CONC 32 g/dL (33-37); MEAN CORPUSCULAR VOLUME 81.5 fL (80-94); MONOCYTES # (AUTO) 0.4 K/uL (0.8-1.0); MONOCYTES % (AUTO) 7.1 % (1.7-9.3); NEUTROPHILS # (AUTO) 4.4 K/uL (1.8-7.7); NEUTROPHILS % (AUTO) 76.5 % (42.2-75.2); PLATELET COUNT (AUTO) 152 K/uL (140-450); RED CELL DISTRIBUTION WIDTH 17.3 % (11.6-13.7); WHITE BLOOD COUNT (AUTO) 5.7 K/uL (4.8-10.8)
[2018-10-01] MEDS ORDERED: BUPIVACAINE-MPF 0.25% 30 ML VIAL INJ ONE (10:20)
[2018-10-01 10:40] LABS: ALBUMIN 2.7 g/dL (3.4-5.0); ANION GAP 11.2 (8-16); CARBON DIOXIDE 27.5 mmol/L (21-32); CREATININE 1.2 mg/dL (0.7-1.3); MAGNESIUM 1.8 mg/dL (1.8-2.4); PHOSPHORUS 3.8 mg/dL (2.5-4.9); POTASSIUM 3.7 mmol/L (3.5-5.1); TOTAL BILIRUBIN 0.2 mg/dL (0.0-1.0)
--- NOTE | 2018-10-01 10:50 | NUR ---
VITALS TAKEN AFTER THORACENTESIS, BP 98/69, HR 76, O2 SAT 99% ON ROOM AIR, RR20.
[2018-10-01 11:26] LABS: PROTHROMBIN TIME 10.2 secs (10.8-13.4)
--- NOTE | 2018-10-01 12:52 | NUR ---
LATE ENTRY FOR 09/29/18 1430 MET WITH PT AT BEDSIDE AND JUNE FROM [facility] PRESENT SPEAKING WITH PT REGARDING DISCHARGE. PER JUNE SHE WAS TRYING TO ASSIST PT WITH B&C PLACEMENT BUT HAVE BEEN UNABLE TO FIND PLACEMENT AT THIS TIME. PTS WORK ADJUSTMENT INSTRUCTOR WHO HAD BEEN HELPING PT PRIOR IS OUT OF TOWN. SPOKE WITH PT REGARDING POSSIBILITY OF ROOM AND BOARD AND DISCUSSED THAT THERE ARE SOME ROOM AND BOARD FACILITIES THAT WILL PRORATE THE FEE DEPENDING ON SSI INCOME. PT IS IN AGREEMENT TO SPEAK WITH REPRESENTATIVES OF ROOM AND BOARD FACILITIES.
--- NOTE | 2018-10-01 12:54 | NUR ---
SPOKE WITH BRUCE FROM [facility]. SHE SAID SHE KNOWS ANOTHER LADY THAT HAS A BOARD AND CARE IN [place] THAT TAKES SSI. I CALLED TRICIA AT [facility] IN [place], AND SHE SAID SHE WOULD SEE THE PATIENT. I SPOKE WITH MR OLSON AND HE IS AGREEABLE TO SPEAK WITH HER. I LEFT A MESSAGE ON HER PHONE TO CALL ME SO SHE CAN SEE THE PATIENT.
--- NOTE | 2018-10-01 13:01 | NUR ---
I SPOKE EARLIER WITH THE PATIENT. HE SAID HE IS MISSING HIS WALKER AND CPAP(BI-PAP) MACHINE FROM [facility]. I CALLED [facility] AND SPOKE WITH TERA. GRISELDA FROM [facility] CALLED ME AND SAID THEY HAVE THE WALKER AND WILL BRING IT TO HIM. THEY ARE STILL LOOKING FOR THE CPAP.
--- NOTE | 2018-10-01 13:30 | NUR ---
PT ON ROOM AIR SAT .98 0 RESP DISTRESS NOTED
--- NOTE | 2018-10-01 15:47 | NUR ---
LEFT A MESSAGE WITH TRICIA FROM [facility] IN [place]. [phone]. TRIED TO CALL HER AGAIN, MAIL BOX IS FULL. I SPOKE WITH DEBBIE AT [facility]. THEY FOUND THE PATIENT'S WALKER AND WILL TAKE IT TO HIM. THEY ARE STILL LOOKING FOR HIS CPAP AND SHE SAID IF THEY DON'T FIND IT, THEY WILL REPLACE IT. SHE SAID SHE WOULD HAVE SOMEONE TALK WITH THE PATIENT ABOUT THE CPAP.
[2018-10-01 16:00] VITALS: BP 101/69
[2018-10-01] MEDS: FUROSEMIDE 20 MG TAB PO SCH (17:15)
--- NOTE | 2018-10-01 18:25 | NUR ---
PT C/O NAUSEA AND STATED HE WANTS ZOFRAN. WILL GIVE ZOFRAN IVP.
[2018-10-01] MEDS: ONDANSETRON 4 MG/2 ML VIAL IM/IVP PRN (18:36)
--- NOTE | 2018-10-01 19:00 | NUR ---
Mower Sharpener Notes: I contact Megan bottling supervisor of board and care in [place] to discuss Patient's needs for a board and care after discharge from [facility]. Per Megan she has openings and is available to meet patient tomorrow 10/02/18 to make sure he meets criteria for her board and care. These typewriter operator automatic faxed Patient's Clinical information to . Per Megan she will follow up and will contact patient and case manger tomorrow if Patient has accepted services. I thank her for her assistance and ended the call.
--- NOTE | 2018-10-01 19:11 | NUR ---
Gym Teacher Notes: I meet with Patient to discuss safe discharge to a board [place]. Patient was resistant in the beganin of conversation about his discharge to a board and Care. Per Patient he is very frustrated and upset about his friend/Caregiver [facility] not following up and assisting Patient with placement in [place] as they discussed and agreed during previous conversations. I explained to Patient that his friend/Caregiver has not return any of several calls made by several disciplines from [facility] treatment team with intention to plan a safe discharge for patient. I Also explained to patient that his plan for discharge can no longer wait to be prepare and that CONCESSION SUPERVISOR (Transmission And Coordination Engineer) will be sending inquiries to board and care facilities to come meet with patient and discuss plan for discharge. Patient understood and agreed to met with board and care after several times these selling underwriter explained the concerns of a safe discharge.
--- NOTE | 2018-10-01 19:20 | NUR ---
RECEIVED REPORT FROM DAY SHIFT NURSE VICKI-RN AT BEDSIDE. PT SLEEPING AT THIS TIME. AT BASELINE PT AOX4- BILATERAL BLINDNESS, ON ROOM AIR WITH RIGHT HAND #24G SALINE LOCK. NOTED DISCOLORATION ON RIGHT LEG AND SCALY SKIN OF LEFT LEG, BOTH WITH NON-PITTING EDEMA. NO S/S OF RESPIRATORY DISTRESS OR DISCOMFORT NOTED AT THIS TIME. BED IN LOWEST POSITION, BED BREAKS ON, BOTH SIDE RAILS UP AND BED ALARM ON. FALL PRECAUTIONS ARE IN PLACE. BED SIDE TABLE AND CALL LIGHT ARE WITHIN REACH. WILL CONTINUE TO MONITOR.
--- NOTE | 2018-10-01 19:20 | NUR ---
REPORT GIVEN TO NICKING MACHINE OPERATOR RN. PT IN STABLE CONDITION.
[2018-10-01 20:00] VITALS: BP 88/56
--- NOTE | 2018-10-01 20:00 | NUR ---
VITAL SIGNS TAKEN AND TOLERATED WELL. BLOOD GLUCOSE 104-NO INSULIN COVERAGE GIVEN. NO S/S OF RESPIRATORY DISTRESS OR DISCOMFORT NOTED AT THIS TIME. WILL CONTINUE TO MONITOR.
[2018-10-01] MEDS: CLOPIDOGREL 75 MG TAB PO SCH (21:17)
[2018-10-01] MEDS: ATORVASTATIN 20 MG TAB PO SCH (21:18)
--- NOTE | 2018-10-01 21:18 | NUR ---
SCHEDULED MEDICATION GIVEN. COREG HELD DUE TO DECREASED BLOOD PRESSURE. NO S/S OF RESPIRATORY DISTRESS OR DISCOMFORT NOTED AT THIS TIME. WILL CONTINUE TO MONITOR.
[2018-10-01] MEDS ORDERED: HYDROcodone/APAP 5/325 MG 1 TAB TAB PO ONE (21:30)
--- NOTE | 2018-10-01 21:53 | NUR ---
PT C/O PAIN. SPOKE WITH DR. MÉNDEZ ABOUT PT PAIN AND LOW BLOOD PRESSURE. MD PLACED ONE TIME ORDER OF NORCO AND WAS ADMINISTERED WITH BP 92/59 (65), HR 77. PT TOLERATED WELL. NO S/S OF RESPIRATORY DISTRESS OR DISCOMFORT NOTED AT THIS TIME. WILL CONTINUE TO MONITOR.
[2018-10-02] VITALS: BP 97/62
--- NOTE | 2018-10-02 | NUR ---
VITAL SIGNS TAKEN AND TOLERATED WELL. NO S/S OF RESPIRATORY DISTRESS OR DISCOMFORT NOTED AT THIS TIME. WILL CONTINUE TO MONITOR.
--- NOTE | 2018-10-02 02:00 | NUR ---
PT CONTINUES TO SLEEP IN BED. NO S/S OF RESPIRATORY DISTRESS OR DISCOMFORT NOTED AT THIS TIME. WILL CONTINUE TO MONITOR.
--- NOTE | 2018-10-02 04:00 | NUR ---
PT CONTINUES TO SLEEP. NO S/S OF RESPIRATORY DISTRESS OR DISCOMFORT NOTED AT THIS TIME. WILL CONTINUE TO MONITOR.
--- NOTE | 2018-10-02 06:00 | NUR ---
BLOOD GLUCOSE 82- NO INSULIN COVERAGE NEEDED. PT REQUESTED CRANBERRY JUICE AND WAS GIVEN. PT TOLERATED WELL. NO S/S OF RESPIRATORY DISTRESS OR DISCOMFORT NOTED AT THIS TIME. WILL CONTINUE TO MONITOR.
[2018-10-02] MEDS: BLOOD GLUCOSE MONITORING 1 DEV DEV FS SCH ×4 (06:03→20:36)
--- NOTE | 2018-10-02 07:05 | NUR ---
ENDORSED PT CARE TO DAY SHIFT NURSE CATHY FOR CONTINUITY OF CARE.
--- NOTE | 2018-10-02 07:30 | NUR ---
RECEIVED PT REPORT AT BEDSIDE FROM QUARTER FOLDER NURSE. PT SLEEPING, ROUSED BY NAME, OX4. IV TO THE RIGHT HAND 24G, PATENT AND INTACT. NO S/S OF ACUTE DISTRESS ON ROOM AIR. ANY PAIN AT THIS TIME. BED IS IN LOWEST POSITION, CALL LIGHT WITHIN REACH. WILL CONTINUE TO MONITOR.
[2018-10-02] MEDS: ALBUTEROL SULFATE/IPRATROPIU 3 ML SOL IH SCH ×3 (07:49→19:28)
[2018-10-02 08:00] VITALS: BP 96/60
--- NOTE | 2018-10-02 08:30 | NUR ---
MADE DR MEDEL AWARE OF THE BP, STATED OK TO LASIX.
[2018-10-02] MEDS: LACTOBACILLUS RHAMNOSUS GG 1 EACH CAP PO SCH (08:52)
[2018-10-02] MEDS: FUROSEMIDE 20 MG TAB PO SCH ×2 (08:52→17:18)
[2018-10-02] MEDS: CARVEDILOL 3.125 MG TAB PO SCH ×2 (08:53→20:16)
[2018-10-02] MEDS: SPIRONOLACTONE 25 MG TAB PO SCH (08:53)
[2018-10-02] MEDS: MIDODRINE 5 MG TAB PO SCH ×3 (08:53→17:18)
[2018-10-02] MEDS: ASPIRIN 81 MG TAB.CHEW PO SCH (08:53)
[2018-10-02] MEDS: LISINOPRIL 5 MG TAB PO SCH (08:54)
[2018-10-02] MEDS: DOCUSATE SODIUM 100 MG GELCAP PO PRN (09:00)
--- NOTE | 2018-10-02 09:05 | NUR ---
ENCOURAGED PT TO AMBULATE, PT REFUSED FOR NOW, STATED HE IS NOT READY YET, AND WANTED TO DO IT LATER IN THE DAY.
--- NOTE | 2018-10-02 15:17 | NUR ---
JACKSON FROM [facility] IN [place] CAME TO SEE THE PATIENT. SHE WILL CHECK WITH HER TECHNICAL SUPPORT INTERNSHIP.
[2018-10-02 16:00] VITALS: BP 95/67
[2018-10-02 20:00] VITALS: BP 102/67
--- NOTE | 2018-10-02 20:00 | NUR ---
VITAL SIGNS TAKEN AND TOLERATED WELL. BLOOD GLUCOSE 114- NO INSULIN COVERAGE NEEDED. NO S/S OF RESPIRATORY DISTRESS OR DISCOMFORT NOTED AT THIS TIME. WILL CONTINUE TO MONITOR.
[2018-10-02] MEDS: ATORVASTATIN 20 MG TAB PO SCH (20:15)
[2018-10-02] MEDS: CLOPIDOGREL 75 MG TAB PO SCH (20:16)
--- NOTE | 2018-10-02 20:16 | NUR ---
SCHEDULED MEDICATION GIVEN AND TOLERATED WELL. COREG NOT GIVEN DUE TO DECREASED BLOOD PRESSURE. PT TOLERATED WELL. NO S/S OF RESPIRATORY DISTRESS OR DISCOMFORT NOTED AT THIS TIME. WILL CONTINUE TO MONITOR.
--- NOTE | 2018-10-02 22:00 | NUR ---
PT HAD A BP IN THE BEDPAN. MODERATE SIZE, FORMED, HARD, AND BROWN. PT WAS PROVIDED WITH PERINEAL CARE. PT TOLERATED WELL. NO S/S OF RESPIRATORY DISTRESS OR DISCOMFORT NOTED AT THIS TIME. WILL CONTINUE TO MONITOR. Addendum: 10/02/18 at 2249 by Sarah Barry RN BM- BOWEL MOVEMENT NOT BP
[2018-10-03] VITALS: BP 97/67
--- NOTE | 2018-10-03 | NUR ---
VITAL SIGNS TAKEN AND TOLERATED WELL. NO S/S OF RESPIRATORY DISTRESS OR DISCOMFORT NOTED AT THIS TIME. WILL CONTINUE TO MONITOR.
--- NOTE | 2018-10-03 02:00 | NUR ---
PT SLEEPING IN BED. NO S/S OF RESPIRATORY DISTRESS OR DISCOMFORT NOTED AT THIS TIME. WILL CONTINUE TO MONITOR.
--- NOTE | 2018-10-03 04:00 | NUR ---
PT CONTINUES TO SLEEP IN BED. NO S/S OF RESPIRATORY DISTRESS OR DISCOMFORT NOTED AT THIS TIME. WILL CONTINUE TO MONITOR.
--- NOTE | 2018-10-03 06:00 | NUR ---
PT CONTINUES TO SLEEP IN BED. NO S/S OF RESPIRATORY DISTRESS OR DISCOMFORT NOTED AT THIS TIME. WILL CONTINUE TO MONITOR.
[2018-10-03] MEDS: BLOOD GLUCOSE MONITORING 1 DEV DEV FS SCH ×4 (06:16→21:42)
--- NOTE | 2018-10-03 06:16 | NUR ---
BLOOD GLUCOSE 90- NO INSULIN COVERAGE NEEDED. NO S/S OF RESPIRATORY DISTRESS OR DISCOMFORT NOTED AT THIS TIME. WILL CONTINUE TO MONITOR.
--- NOTE | 2018-10-03 07:14 | NUR ---
ENDORSED PT CARE TO DAY SHIFT NURSE SITAL-RN FOR CONTINUITY OF CARE.
--- NOTE | 2018-10-03 07:15 | NUR ---
RECEIVED REPORT FROM PM NURSE AT BEDSIDE. PT LYING ON HIS BED. INTRODUCED SELF AND UPDATE BOARD. HAS RT WRIST 224 G IV ACCESS, SALINE LOCK. PT HAS BLE DISCOLORATION . VISUAL DEFECT, CANNOT SEE. PT IS ON FALL RISK, USES BEDPAN, BEDSIDE URINAL. ALL SAFETY MEASURE IN PLACE. CALL LIGHT WITHIN PT REACH. INFORMED PT TO USE CALL LIGHT FOR ANY HELP. VERBALIZED UNDERSTANDING. WILL CONTINUE TO MONITOR PT.
[2018-10-03] MEDS: ALBUTEROL SULFATE/IPRATROPIU 3 ML SOL IH SCH ×3 (07:16→19:33)
[2018-10-03 07:30] LABS: BASOPHILS % (AUTO) 0.4 % (0.0-2.0); EOSINOPHILS # (AUTO) 0.2 K/uL (0-0.4); EOSINOPHILS % (AUTO) 3.7 % (0.0-4.0); HEMATOCRIT 36.3 % (36-52); LYMPHOCYTES # (AUTO) 0.9 K/uL (2.0-11.5); LYMPHOCYTES % (AUTO) 16.8 % (20.5-51.1); MEAN CORPUSCULAR HEMOGLOBIN 27 pg (27-31); MEAN CORPUSCULAR HGB CONC 33 g/dL (33-37); MEAN CORPUSCULAR VOLUME 80.9 fL (80-94); MONOCYTES # (AUTO) 0.6 K/uL (0.8-1.0); MONOCYTES % (AUTO) 9.9 % (1.7-9.3); NEUTROPHILS # (AUTO) 3.9 K/uL (1.8-7.7); NEUTROPHILS % (AUTO) 69.2 % (42.2-75.2); PLATELET COUNT (AUTO) 158 K/uL (140-450); RED BLOOD CELL COUNT(AUTO) 4.49 MIL/uL (4.20-6.10); WHITE BLOOD COUNT (AUTO) 5.6 K/uL (4.8-10.8)
[2018-10-03 07:35] LABS: CARBON DIOXIDE 30.3 mmol/L (21-32); CREATININE 1.2 mg/dL (0.7-1.3); POTASSIUM 3.3 mmol/L (3.5-5.1)
[2018-10-03 07:43] LABS: PHOSPHORUS 4.4 mg/dL (2.5-4.9)
[2018-10-03 08:00] VITALS: BP 100/56
[2018-10-03] MEDS: LACTOBACILLUS RHAMNOSUS GG 1 EACH CAP PO SCH (09:00)
--- NOTE | 2018-10-03 09:45 | NUR ---
ADMINISTERED MEDS TO PT ORDERED WITH STUDENT NURSE. PT TOLERATED MEDS WELL. NO SIGN OF DISTRESS NOTED. HOLD BP MEDS PER PARAMETERS. PT REFUSED ALDACTONE. NO SIGN OF DISTRESS . WILL CONTINUE TO MONITOR PT.
[2018-10-03] MEDS: LISINOPRIL 5 MG TAB PO SCH (10:00)
[2018-10-03] MEDS: CARVEDILOL 3.125 MG TAB PO SCH ×2 (10:00→21:00)
[2018-10-03] MEDS: SPIRONOLACTONE 25 MG TAB PO SCH (10:00)
[2018-10-03] MEDS: ASPIRIN 81 MG TAB.CHEW PO SCH (10:04)
[2018-10-03] MEDS: MIDODRINE 5 MG TAB PO SCH ×3 (10:05→17:10)
[2018-10-03] MEDS: FUROSEMIDE 20 MG TAB PO SCH ×2 (10:07→17:10)
--- NOTE | 2018-10-03 12:00 | NUR ---
Insurance Agency Manager Notes: I Attempted to contact board and care waste salvager Megan at several times to get status on Patient acceptance to their facility. No response with any of the attempted calls and I left her several messages with my direct contact information and several request for a call back.
--- NOTE | 2018-10-03 13:00 | NUR ---
Spot Welder Line Notes: I called [facility] care to make a referral for patient at no response. I left a detail msg with my direct contact information and a request for a call back. I faxed Patient's medical information at .
--- NOTE | 2018-10-03 13:00 | NUR ---
CHECKED ON PT. PT SLEEPING ON BED. NO SIGN OF DISTRESS. ALL SAFETY MEASURE IN PLACE. WILL CONTINUE TO MONITOR PT.
--- NOTE | 2018-10-03 14:30 | NUR ---
Topographical Drafter Notes: I contacted Renée from [facility] at [phone] to discuss patient's status, needing a board and care and discharge coordination. Per Renée she will be looking and possible board and care with openings in the are and will review Patient's clinical information. I faxed patient information at .
--- NOTE | 2018-10-03 15:00 | NUR ---
Director Information Notes: I faxed Patient's clinical information to [facility] at
[2018-10-03 16:00] VITALS: BP 99/67
[2018-10-03] MEDS ORDERED: POTASSIUM CHLORIDE 20% 40 MEQ/15 ML UDC GT SCH (16:00)
--- NOTE | 2018-10-03 17:00 | NUR ---
ADMINISTERED MEDS TO PT ORDERED. BS 114. TOLERATED WELL. ADMINISTERED POTASSIUM LIQUID FOR LOW POTASSIUM 3.3, MIXED WITH ORANGE JUICE. COMPLAINING OF BITTER TASTE. NO SIGN OF DISTRESS NOTED. PT SITTING ON CHAIR . TOLERATED WELL. WILL CONTINUE TO MONITOR PT.
[2018-10-03] MEDS: ONDANSETRON 4 MG/2 ML VIAL IM/IVP PRN (18:04)
--- NOTE | 2018-10-03 18:15 | NUR ---
PT COMPLAINING OF NAUSEA BECAUSE OF LIQUID POTASSIUM. ADMINISTERED ZOFRAN. TOLERATED WELL. WILL CONTINUE TO MONITOR PT.
--- NOTE | 2018-10-03 19:08 | NUR ---
ENDORSED PT TO PM NURSE . PT STABLE. SITTING ON CHAIR AND TALKING ON PHONE.
--- NOTE | 2018-10-03 19:09 | NUR ---
RECD. SITTING ON CHAIR, AWAKE, A/OX4. RESPIRATION EVEN AND UNLABORED. 02 SAT -98% ON ROOM AIR. IV SALINE LOCK AT THE RIGHT HAND G24. PATENT AND INTACT. PLAN OF CARE FOR THE SHIFT DISCUSSED. VERBALIZED UNDERSTANDING. DENIES PAIN 0/10.
--- NOTE | 2018-10-03 19:45 | NUR ---
ASSISTED BACK TO BED FROM USING BR, CLEANSED HANDS. WANTS TO TAKE SUPPLEMENTS VIT C AND D. WILL INFORM .
[2018-10-03] MEDS: MULTIVITAMIN/MINERALS 15 ML UDBTL GT SCH (21:00)
[2018-10-03] MEDS: ATORVASTATIN 20 MG TAB PO SCH (21:37)
[2018-10-03] MEDS: ASCORBIC ACID 500 MG TAB PO SCH (21:38)
[2018-10-03] MEDS: CLOPIDOGREL 75 MG TAB PO SCH (21:38)
--- NOTE | 2018-10-03 21:38 | NUR ---
DUE PO MEDICATIONS GIVEN.
--- NOTE | 2018-10-03 22:15 | NUR ---
INFORMED DR. MAYORGA COREG NOT ADMINISTERED BECAUSE BP ALWAYS IN THE LOW SIDE, THERAGRAN NOT AVAILABLE TONIGHT, WILL BE GIVEN TOMORROW.
[2018-10-03] MEDS ORDERED: VITAMIN D 400 IU TAB PO SCH (23:00)
[2018-10-04] VITALS: BP 94/58
--- NOTE | 2018-10-04 | NUR ---
SLEEPING COMFORTABLY IN BED.
--- NOTE | 2018-10-04 03:00 | NUR ---
REPOSITIONED IN BED, WARM BLANKETS GIVEN. WENT BACK TO SLEEP.
--- NOTE | 2018-10-04 06:25 | NUR ---
AWAKE IN BED, HAVING DISCUSSION WITH DR. LOMELI REGARDING HIS TRANSFER.
[2018-10-04] MEDS: BLOOD GLUCOSE MONITORING 1 DEV DEV FS SCH ×4 (06:51→20:43)
[2018-10-04 07:18] LABS: BASOPHILS % (AUTO) 0.4 % (0.0-2.0); EOSINOPHILS # (AUTO) 0.3 K/uL (0-0.4); EOSINOPHILS % (AUTO) 5.4 % (0.0-4.0); HEMOGLOBIN 11.6 g/dL (12.0-18.0); LYMPHOCYTES # (AUTO) 1.1 K/uL (2.0-11.5); MEAN CORPUSCULAR HEMOGLOBIN 27 pg (27-31); MEAN CORPUSCULAR HGB CONC 33 g/dL (33-37); MEAN CORPUSCULAR VOLUME 81.1 fL (80-94); MONOCYTES # (AUTO) 0.6 K/uL (0.8-1.0); NEUTROPHILS # (AUTO) 3.4 K/uL (1.8-7.7); NEUTROPHILS % (AUTO) 63.2 % (42.2-75.2); PLATELET COUNT (AUTO) 153 K/uL (140-450); RED BLOOD CELL COUNT(AUTO) 4.32 MIL/uL (4.20-6.10); RED CELL DISTRIBUTION WIDTH 17.1 % (11.6-13.7); WHITE BLOOD COUNT (AUTO) 5.4 K/uL (4.8-10.8)
--- NOTE | 2018-10-04 07:20 | NUR ---
RESTING IN BED, WAITING FOR SURFACING TECHNICIAN TO TAKE HIM FOR CHEST X-RAY. ENDORSED TO AMANDA LEÓN FOR CONTINUITY OF CARE.
--- NOTE | 2018-10-04 07:21 | NUR ---
RECEIVED REPORT FROM PM NURSE AT BESIDE. PT LYING ON HIS BED, AWAKE. HAS IV 24 G, SL ON RT WRIST. ALL SAFETY MEASURE IN PLACE. INTRODUCED SELF, UPDATED BOARD. NO SIGN OF DISTRESS NOTED. WILL CONTINUE TO MONITOR PT.
[2018-10-04 07:26] LABS: CREATININE 1.3 mg/dL (0.7-1.3)
[2018-10-04] MEDS: ALBUTEROL SULFATE/IPRATROPIU 3 ML SOL IH SCH ×3 (07:31→19:01)
[2018-10-04 08:00] VITALS: BP 91/57
[2018-10-04 08:32] VITALS: BP 91/57
[2018-10-04] MEDS: VITAMIN D 400 IU TAB PO SCH ×2 (08:47→20:45)
[2018-10-04] MEDS: ASPIRIN 81 MG TAB.CHEW PO SCH (08:48)
[2018-10-04] MEDS: MIDODRINE 5 MG TAB PO SCH ×3 (08:48→16:38)
[2018-10-04] MEDS: FUROSEMIDE 20 MG TAB PO SCH ×2 (08:48→16:38)
[2018-10-04] MEDS: ASCORBIC ACID 500 MG TAB PO SCH ×2 (08:48→21:06)
[2018-10-04] MEDS: LACTOBACILLUS RHAMNOSUS GG 1 EACH CAP PO SCH (08:50)
[2018-10-04] MEDS: LISINOPRIL 5 MG TAB PO SCH (09:00)
[2018-10-04] MEDS: SPIRONOLACTONE 25 MG TAB PO SCH (09:00)
[2018-10-04] MEDS: CARVEDILOL 3.125 MG TAB PO SCH ×3 (09:00→21:09)
--- NOTE | 2018-10-04 09:00 | NUR ---
ADMINISTERED MEDS TO PT ORDERED. TOLERATED WELL. NO SIGN OF DISTRESS NOTED. HELPED WITH URINAL . REFUSED HIS BP MEDS. PLACED CALL LIGHT WITHIN PT REACH. INFORMED TO USE CALL LIGHT FOR ANY HELP.VERBALIZED UNDERSTANDING. WILL CONTINUE TO MONITOR PT.
--- NOTE | 2018-10-04 12:00 | NUR ---
CHECKED ON PT. REFUSED HIS AM BS TEST. INFORMED HIM THAT IT NEEDS TO CHECKED PT MIGHT HAVE HIGH BS , MIGHT REQUIRE INSULIN FOR MANAGING HIS BLOOD SUGAR. REFUSED. PT STATES HE HAS NO FLUIDS IN HIS BODY HE IS TAKING LASIX. PT IS ON LASIX TO PREVENT THE FLUID BUILD UP IN LUNGS. EDUCATED PT THAT HE NEEDS LASIX TO GET RID OFF EXCESSIVE FLUIDS FROM HIS BODY. VERBALIZED UNDERSTANDING. WILL CONTINUE TO MONITOR PT.
[2018-10-04 16:09] VITALS: BP 95/63
--- NOTE | 2018-10-04 16:45 | NUR ---
ADMINISTERED MEDS TO PT . PT LYING ON HIS BED. BS RECORDED, WITHIN NORMAL RANGE. HELPED PT WITH REPOSITION, NO SIGN OF DISTRESS NOTED. PLACED CALL LIGHT WITHIN PT REACH. WILL CONTINUE TO MONITOR PT.
--- NOTE | 2018-10-04 19:10 | NUR ---
ENDORSED PT TO PM NURSE AT BEDSIDE. PT IN STABLE CONDITION.
--- NOTE | 2018-10-04 19:11 | NUR ---
RECD. RESTING IN BED, AWAKE, A/OX4. RESPIRATION EVEN AND UNLABORED. REQUESTED TO BE ASSISTED TO FIND NAME OF AIRPLANE CHARTER CLERK IN HIS [place], WANTS TO CALL TO BE ABLE TO FIND A BETTER PLACE WHEN HE WILL BE DISCHARGE. PLAN OF CARE FOR THE SHIFT DISCUSSED. VERBALIZED UNDERSTANDING. DENIES PAIN 0/10.
[2018-10-04 20:00] VITALS: BP 95/65
--- NOTE | 2018-10-04 20:00 | NUR ---
ENCOURAGED TO ALTERNATELY TURN TO THE SIDES AND NOT ALWAYS LYING ON HIS BACK.
[2018-10-04] MEDS: MULTIVITAMIN/MINERALS 15 ML UDBTL GT SCH (20:45)
[2018-10-04] MEDS: ATORVASTATIN 20 MG TAB PO SCH (20:46)
[2018-10-04] MEDS: CLOPIDOGREL 75 MG TAB PO SCH (20:46)
--- NOTE | 2018-10-04 21:10 | NUR ---
DUE PO MEDICATIONS GIVEN BUT REFUSED TO TAKE COREG EVEN BP PARAMETERS IS OK TO GIVE. EXPLAINED THE IMPORTANCE OF TAKING THIS MEDICATION BUT STILL REFUSED BECAUSE IT MAY BRING HIS BP AND HR DOWN.
--- NOTE | 2018-10-04 21:30 | NUR ---
ATE 100% OF SNACK FOR THE NIGHT.
[2018-10-05] VITALS: BP 94/61
[2018-10-05] MEDS ORDERED: MORPHINE SULFATE 4 MG/ML SYR IVP PRN (00:20)
[2018-10-05] MEDS ORDERED: ACETAMINOPHEN 325 MG TAB PO PRN (00:20)
[2018-10-05] MEDS: HYDROcodone/APAP 5/325 MG 1 TAB TAB PO PRN ×2 (01:01→22:54)
--- NOTE | 2018-10-05 02:30 | NUR ---
STILL AWAKE IN BED, SPEAKING WITH PATIENT IN THE OTHER BED, ADVISED TO GO TO SLEEP.
--- NOTE | 2018-10-05 03:30 | NUR ---
SLEEPING COMFORTABLY IN BED.
[2018-10-05] MEDS: BLOOD GLUCOSE MONITORING 1 DEV DEV FS SCH ×4 (07:02→20:30)
--- NOTE | 2018-10-05 07:15 | NUR ---
STILL SLEEPING COMFORTABLY IN BED. CONDITION REMAIN STABLE. ENDORSED TO AMANDA KLINE FOR CONTINUITY OF CARE.
--- NOTE | 2018-10-05 07:18 | NUR ---
REPORT RECEIVED FROM TAIL SAWYER NURSE, PT AWAKE ALERT, RESP EVEN UNLABORED, SKIN WARM DRY COLOR WNL, POC REVIEWED, PT DENIES PAIN OR DISCOMFORT, ALL SAFETY MEASURES IN PLACE, NO IMMEDIATE NEEDS AT THIS TIME, WILL CONTINUE TO MONITOR.
[2018-10-05] MEDS: ALBUTEROL SULFATE/IPRATROPIU 3 ML SOL IH SCH ×3 (07:38→18:50)
[2018-10-05 08:00] VITALS: BP 93/58
[2018-10-05] MEDS: CARVEDILOL 3.125 MG TAB PO SCH ×2 (09:00→20:30)
[2018-10-05] MEDS: LISINOPRIL 5 MG TAB PO SCH (09:00)
[2018-10-05] MEDS: LACTOBACILLUS RHAMNOSUS GG 1 EACH CAP PO SCH (09:31)
[2018-10-05] MEDS: FUROSEMIDE 20 MG TAB PO SCH ×2 (09:31→16:09)
[2018-10-05] MEDS: VITAMIN D 400 IU TAB PO SCH ×2 (09:31→20:29)
[2018-10-05] MEDS: ASPIRIN 81 MG TAB.CHEW PO SCH (09:31)
[2018-10-05] MEDS: ASCORBIC ACID 500 MG TAB PO SCH ×2 (09:31→20:30)
[2018-10-05] MEDS: SPIRONOLACTONE 25 MG TAB PO SCH (09:32)
[2018-10-05] MEDS: MIDODRINE 5 MG TAB PO SCH ×3 (09:32→16:09)
--- NOTE | 2018-10-05 09:45 | NUR ---
AM MEDS GIVEN, PT GIA PO WELL, PT SITTING UP AT SIDE OF BED, BRUSHING TEETH NOW, PT DENIES PAIN OR DISCOMFORT, WILL CONTINUE TO MONIOTOR
--- NOTE | 2018-10-05 12:20 | NUR ---
PT SITTING UP EATING LUNCH, DENIES PAIN OR DISCOMFORT, DENIES IMMEDIATE NEEDS, WILL CONTINUE TO MONITOR.
--- NOTE | 2018-10-05 14:15 | NUR ---
TRIED TO CALL JACKSON AT [facility]. I SPOKE WITH FARIBA PIÑA, SUPERVISOR TAN ROOM, . SHE SAID THEY HAVE NO BEDS AT PRESENT. MAYBE ON October.
[2018-10-05 16:00] VITALS: BP 96/61
--- NOTE | 2018-10-05 16:13 | NUR ---
BLOOD SUGAR 144, NO INSULIN NEEDED PER SLIDING SCALE, URINAL EMPTIED, CURTAIN CLOSED TO BLOCK OUTSIDE LIGHT PER PT, PT DENIES ANY OTHER IMMEDIATE NEEDS, WILL CONTIUE TO MONITOR
--- NOTE | 2018-10-05 19:19 | NUR ---
REPORT GIVEN TO TDP DISPLAYS ANALYST NURSE, PT RESTING QUIETLY IN NAD.
--- NOTE | 2018-10-05 19:19 | NUR ---
RECEIVED BEDSIDE REPORT FROM AMANDA KLINE, PATIENT IN BED, ON FALL PRECAUTIONS, HAS VISION DEFICIENCY, ON FLUIDS RESTRICTIONS OF 1 L PER DAY. BED ALARM ON. V/S TAKEN BP 89/64 WILL HOLD SCHEDULED BP MEDICATIONS, WILL CONTINUE TO MONITOR V/S. DENIES PAIN, ON RA, NO SIGNS OF ACUTE DISTRESS. BG 124 NO COVERAGE NEEDED, IV IN RIGHT HAND SL, 24 G, INTACT, NO PAIN. EXPLAINED PLAN OF CARE AND SCHEDULED MEDICATIONS, UPDATED BOARD, CALL LIGHT WITHIN REACH, WILL CONTINUE TO MONITOR.
[2018-10-05] MEDS: MULTIVITAMIN/MINERALS 15 ML UDBTL GT SCH (20:29)
[2018-10-05] MEDS: CLOPIDOGREL 75 MG TAB PO SCH (20:29)
[2018-10-05] MEDS: ATORVASTATIN 20 MG TAB PO SCH (20:29)
--- NOTE | 2018-10-05 20:29 | NUR ---
DUE MEDICATIONS GIVEN, PATIENT TOLERATED WELL, CALL LIGHT WITHIN REACH, WILL CONTINUE TO MONITOR.
--- NOTE | 2018-10-05 22:30 | NUR ---
PATIENT SLEEPING IN BED NO SIGNS OF DISTRESS, CALL LIGHT WITHIN REACH, BED ALARM ON.
--- NOTE | 2018-10-05 22:54 | NUR ---
PATIENT C/O PAIN IN BACK WILL MEDICATE ACCORDING TO MD ORDER.
[2018-10-06] VITALS: BP 99/62
--- NOTE | 2018-10-06 | NUR ---
V/S TAKEN BP 99/62, DENIES PAIN, CALL LIGHT WITHIN REACH, WILL CONTINUE TO MONITOR.
--- NOTE | 2018-10-06 01:10 | NUR ---
INFORMED DR. MÉNDEZ, PT. BP - 87/55, RIGHT ARM, 86/57 LEFT ARM, ASYMPTOMATIC. CONTINUE TO MONITOR PATIENT. DON'T GIVE BP MEDS THAT MAY LOWER BP.
--- NOTE | 2018-10-06 02:19 | NUR ---
SLEEPING IN BED NO SIGNS OF DISTRESS, BED ALARM ON, WILL CONTINUE TO MONITOR.
[2018-10-06] MEDS: ONDANSETRON 4 MG/2 ML VIAL IM/IVP PRN (05:53)
--- NOTE | 2018-10-06 06:00 | NUR ---
PATIENT FEELING SOB, CALLED RT THEY SAID THEY ARE BUSY AND DAY SHIFT RT WILL DO BREATHING TX, PLACED PT ON 2 L NC, O2 SAT 100%.
[2018-10-06] MEDS: BLOOD GLUCOSE MONITORING 1 DEV DEV FS SCH ×4 (06:38→21:29)
[2018-10-06] MEDS: ALBUTEROL SULFATE/IPRATROPIU 3 ML SOL IH SCH (07:01)
--- NOTE | 2018-10-06 07:25 | NUR ---
ENDORSED PATIENT TO DAY SHIFT NURSE PATIENT STABLE.
--- NOTE | 2018-10-06 07:27 | NUR ---
RECEIVED BEDSIDE REPORT FROM NAIL ASSEMBLY MACHINE OPERATOR RN. IN STABLE CONDITION, AOX4. VISUAL DEFICITS AND SENSITIVITY TO LIGHT. FLUID RESTRICTIONS 1L/DAY. DENIES PAIN AND DISCOMFORT. SATURATING WELL ON 2L NC. IV SITE PATENT AND ASYMPTOMATIC, ON SL. BLE DISCOLORATION AND DRYNESS. UPDATED BOARD AND INTRODUCED SELF. PT VERBALIZED UNDERSTANDING. ALL SAFETY PRECAUTIONS IN PLACE, WILL CONTINUE TO MONITOR. Addendum: 10/06/18 at 1801 by Henny Branch Meng RN DENIES SOB. NO S/S RESPIRATORY DISTRESS.
[2018-10-06 08:00] VITALS: BP 89/59
[2018-10-06] MEDS: LISINOPRIL 5 MG TAB PO SCH (09:00)
[2018-10-06] MEDS: ASPIRIN 81 MG TAB.CHEW PO SCH (09:22)
[2018-10-06] MEDS: SPIRONOLACTONE 25 MG TAB PO SCH (09:22)
[2018-10-06] MEDS: LACTOBACILLUS RHAMNOSUS GG 1 EACH CAP PO SCH (09:23)
[2018-10-06] MEDS: ASCORBIC ACID 500 MG TAB PO SCH ×2 (09:24→21:18)
[2018-10-06] MEDS: MIDODRINE 5 MG TAB PO SCH ×3 (09:24→17:11)
[2018-10-06] MEDS: CARVEDILOL 3.125 MG TAB PO SCH ×2 (09:24→21:00)
[2018-10-06] MEDS: VITAMIN D 400 IU TAB PO SCH ×2 (09:24→21:18)
[2018-10-06] MEDS: FUROSEMIDE 20 MG TAB PO SCH ×2 (09:24→17:11)
--- NOTE | 2018-10-06 09:24 | NUR ---
SCHEDULED 0900 MEDS ADMINISTERED. MADELYN 94/61, MAP 69 AT THIS TIME.
--- NOTE | 2018-10-06 10:47 | NUR ---
PT SITTING IN BED, SPEAKING ON PERSONAL CELLPHONE. ALL SAFETY PRECAUTIONS IN PLACE, WILL CONTINUE TO MONITOR.
--- NOTE | 2018-10-06 13:06 | NUR ---
PATIENT REFUSED MIDODRINE. BP 101/67, MAP 71, HR 69.
--- NOTE | 2018-10-06 13:40 | NUR ---
FOR PLACEMENT CALLED [facility], [phone] PER JOSE , NO BEDS CALLED [facility] [phone] LEFT MESSAGE WITH TRICIA CALLED [facility] [phone] PER CLEMENT NO MALE BEDS CALLED [facility] [phone] PER SERGEI, NO LITERACY COACH BEDS CALLED [facility] [phone] SPOKE WITH KAMRAN HE SAID NO LONGER HAVE CONTRACT WITH [facility]. NO HALF-WAY BEDS CALLED [facility] [phone] PER PASTORA, NO HALF-WAY BEDS.
--- NOTE | 2018-10-06 14:38 | NUR ---
HELPED PT WITH WASHING FACE. NO C/O PAIN OR DISCOMFORT. WILL CONTINUE TO MONITOR.
--- NOTE | 2018-10-06 14:40 | NUR ---
Photo Technician Note: I faxed inquiry to [facility] and [facility]. Pending response from Sharon at [facility] . Per Donte from [facility] , they don't have any beds available at this time.
[2018-10-06 16:00] VITALS: BP 89/57
--- NOTE | 2018-10-06 17:18 | NUR ---
BLOOD GLUCOSE IS 104, NO SLIDING SCALE HUMALOG NEEDED.
--- NOTE | 2018-10-06 19:09 | NUR ---
ENDORSED PLAN OF CARE TO MENDOZA CARIAS. PT IN STABLE CONDITION.
--- NOTE | 2018-10-06 19:10 | NUR ---
RECD. RESTING IN BED, AWAKE, A/OX4. RESPIRATION EVEN AND UNLABORED. 02 SAT 99% ON ROOM AIR. IV SALINE LOCK AT THE RIGHT HAND G24. PATENT, INTACT. PLAN OF CARE FOR THE SHIFT DISCUSSED. VERBALIZED UNDERSTANDING. DENIES PAIN 0/10.
[2018-10-06 20:00] VITALS: BP 87/55
--- NOTE | 2018-10-06 20:00 | NUR ---
Patient's Plan of Care was discussed and reviewed with STOCK WORKER AND DELIVERER:
[2018-10-06] MEDS: CLOPIDOGREL 75 MG TAB PO SCH (21:18)
[2018-10-06] MEDS: ATORVASTATIN 20 MG TAB PO SCH (21:18)
[2018-10-06] MEDS: MULTIVITAMIN/MINERALS 15 ML UDBTL GT SCH (21:19)
[2018-10-06] MEDS: HYDROcodone/APAP 5/325 MG 1 TAB TAB PO PRN (23:06)
--- NOTE | 2018-10-07 02:20 | NUR ---
BP CHECKED - 90/62, HR, 65. RESTING COMFORTABLY IN BED.
--- NOTE | 2018-10-07 04:00 | NUR ---
SLEEPING COMFORTABLY IN BED.
--- NOTE | 2018-10-07 07:15 | NUR ---
ENDORSED TO AMANDA NOVAK FOR CONTINUITY OF CARE. 1:1 SITTER MONITORING PATIENT.
--- NOTE | 2018-10-07 07:16 | NUR ---
RECEIVED BEDSIDE REPORT FROM PM SHIFT NURSE MENDOZA. PT ASLEEP IN BED, RESPIRATIONS EVEN & UNLABORED, CALL LIGHT WITHIN REACH.
[2018-10-07] MEDS: BLOOD GLUCOSE MONITORING 1 DEV DEV FS SCH ×4 (07:28→20:26)
[2018-10-07 08:00] VITALS: BP 105/68
[2018-10-07] MEDS: VITAMIN D 400 IU TAB PO SCH ×2 (09:06→20:28)
[2018-10-07] MEDS: ASCORBIC ACID 500 MG TAB PO SCH ×2 (09:06→20:30)
[2018-10-07] MEDS: ASPIRIN 81 MG TAB.CHEW PO SCH (09:07)
[2018-10-07] MEDS: SPIRONOLACTONE 25 MG TAB PO SCH (09:07)
[2018-10-07] MEDS: FUROSEMIDE 20 MG TAB PO SCH ×2 (09:07→16:50)
[2018-10-07] MEDS: MIDODRINE 5 MG TAB PO SCH ×3 (09:07→16:50)
[2018-10-07] MEDS: LACTOBACILLUS RHAMNOSUS GG 1 EACH CAP PO SCH (09:08)
[2018-10-07] MEDS: LISINOPRIL 5 MG TAB PO SCH (09:08)
[2018-10-07] MEDS: CARVEDILOL 3.125 MG TAB PO SCH ×2 (09:08→21:00)
--- NOTE | 2018-10-07 09:10 | NUR ---
AMB WITH PHYSICAL THERAPY USING FWW. NO SIGNS OF DISTRESS. AMB BACK TO BED WITH FAIR BALANCE & GOOD SAFETY AWARENESS.
--- NOTE | 2018-10-07 11:39 | NUR ---
PT SITTING UP AT EDGE OF BED, NO C/O PAIN OR DISCOMFORT. RESPIRATIONS EVEN & UNLABORED IN ROOM AIR. PT TEACHING PROVIDED RE: FALL PRECAUTION. PT AGREE TO CALL STAFF FOR ASSISTANCE WITH AMB/TRANSFERS. CALL LIGHT WITHIN REACH.
--- NOTE | 2018-10-07 12:43 | NUR ---
Brush Fabrication Supervisor Note: Per Sharon at [facility] , no beds available at this time. Per COMPLAINTS COORDINATOR of [facility] [address], Delmar Murphy , there are no beds available at their room and boards at this time. I contacted Megan from [facility] and [facility], , pending response regarding placement.
[2018-10-07 13:03] VITALS: BP 104/63
--- NOTE | 2018-10-07 14:25 | NUR ---
PT ASLEEP IN BED, RESPIRATIONS EVEN & UNLABORED, FLACC 0. CALL LIGHT WITHIN REACH.
--- NOTE | 2018-10-07 14:55 | NUR ---
Metal Painter Note: Per Larissa from [facility] , they don't have a contract with [facility] unable to accept patient. Pending response from Flora at [facility] . Pending response from Michoacano at [facility] .
--- NOTE | 2018-10-07 15:15 | NUR ---
CM NOTE PER [facility] FRED HOANG PH# [phone] THE ASSIGNED CM IS GERI Taylor PH# [phone] EXT [phone] AND TO FAX ANY DC PLAN ORDER TO [facility] [phone]. SHE ALSO STATED THAT FOR HOLIDAYS, WEEKENDS AND AFTER HOURS TO CONTACT [facility] AFTER HOURS AT [phone]. LEFT VM TO [facility] FRED NEVAREZ. NO CALL BACK AT THIS TIME.
--- NOTE | 2018-10-07 15:22 | NUR ---
Community Life Director Note: Per Michoacano from [facility] , they don't have any beds available at this time, he stated Steff from their facility will call me tomorrow and provide me with an update on bed availability. I faxed patient's medical information to [facility]. Per Cuate from [facility] , patient can return to their facility for prison placement, however, they need to obtain authorization from [facility] for prison placement, briefcase sewer Rajwinder made aware. Cuate stated once they obtain authorization patient can go to room 10B at their facility, accepting physician is .
--- NOTE | 2018-10-07 15:47 | NUR ---
10/07/18 RD INITIAL ASSESSMENT COMPLETED PLEASE REFER TO NUTRITION ASSESSMENT UNDER CARE ACTIVITY FOR ESTIMATED NUTRITIONAL NEEDS. 1. CONTINUE CCHO 60 GM DIET TOLERATED 2. DIETITIAN PROVIDED ADDITIONAL DIABETES NUTRITIONAL EDUCATION 3. RD TO FOLLOW-UP 5-7 DAYS, LOW RISK KULWANT CLINE RD
[2018-10-07 16:00] VITALS: BP 95/54
--- NOTE | 2018-10-07 17:29 | NUR ---
PT IN HIGH FOWLERS IN BED, AWAKE, VERBALLY RESPONSIVE. NO C/O PAIN, RESPIRATIONS EVEN & UNLABORED. RIGHT HAND IV INTACT & ASYMPTOMATIC. CALL LIGHT WITHIN REACH.
--- NOTE | 2018-10-07 19:18 | NUR ---
REPORT GIVEN TO PM SHIFT NURSE
--- NOTE | 2018-10-07 19:40 | NUR ---
RECD. RESTING IN BED, AWAKE, A/OX4. RESPIRATION EVEN AND UNLABORED. 02 SAT - 97% AT ROOM AIR. SALINE LOCK AT THE RIGHT HAND G 24, PATENT, INTACT. SAFETY MEASURES ENFORCED. CALL LIGHT IN REACH. INSTRUCTED TO OCCASIONALLY TURN TO SIDES AND AMBULATE IN THE HALLWAY WITH HIS WALKER WITH HUMANITIES PROFESSOR. PLAN OF CARE FOR THE SHIFT DISCUSSED. VERBALIZED UNDERSTANDING. DENIES PAIN 0/10.
[2018-10-07 20:00] VITALS: BP 90/62
--- NOTE | 2018-10-07 20:00 | NUR ---
Patient's Plan of Care was discussed and reviewed with VOICE STUDIES DIRECTOR: MENDOZA AGUILAR
[2018-10-07] MEDS: ATORVASTATIN 20 MG TAB PO SCH (20:28)
[2018-10-07] MEDS: CLOPIDOGREL 75 MG TAB PO SCH (20:29)
[2018-10-07] MEDS: MULTIVITAMIN/MINERALS 15 ML UDBTL GT SCH (20:30)
--- NOTE | 2018-10-07 21:30 | NUR ---
ATE 100% OF HS SNACK.
[2018-10-08] VITALS: BP 88/54
--- NOTE | 2018-10-08 | NUR ---
SLEEPING COMFORTABLY IN BED.
[2018-10-08] MEDS: HYDROcodone/APAP 5/325 MG 1 TAB TAB PO PRN ×2 (00:52→21:43)
--- NOTE | 2018-10-08 04:00 | NUR ---
SLEEPING COMFORTABLY, NO DISTRESS NOTED.
--- NOTE | 2018-10-08 07:35 | NUR ---
CONDITION REMAIN STABLE. ENDORSED TO AM SHIFT NURSE FOR CONTINUITY OF CARE.
--- NOTE | 2018-10-08 07:35 | NUR ---
RECEIVED PATIENT ON ROOM AIR, 02 SAT 99%. DENIES SOB. BREATHING TREATMENT NOT INDICATED AT THIS TIME. NO RESPIRATORY DISTRESS NOTED AT THIS TIME. WILL CONTINUE TO MONITOR.
--- NOTE | 2018-10-08 07:38 | NUR ---
REPORT RECEIVED FROM CAREER COACH NURSE, PT RESTING QUIETLY IN NAD, RESP EVEN UNLABORED, SKIN WARM DRY COLOR WNL, DENIES PAIN OR SOB, RT AT BEDSIDE, PLAN OF CARE REVIEWED, NO IMMEDIATE NEEDS AT THIS TIME, WILL CONTINUE TO MONITOR.
[2018-10-08] MEDS: BLOOD GLUCOSE MONITORING 1 DEV DEV FS SCH ×4 (07:56→21:26)
[2018-10-08 08:00] VITALS: BP 89/57
[2018-10-08] MEDS: CARVEDILOL 3.125 MG TAB PO SCH ×2 (09:00→21:00)
[2018-10-08] MEDS: LISINOPRIL 5 MG TAB PO SCH (09:00)
[2018-10-08] MEDS: SPIRONOLACTONE 25 MG TAB PO SCH (09:00)
[2018-10-08] MEDS: ASPIRIN 81 MG TAB.CHEW PO SCH (09:08)
[2018-10-08] MEDS: LACTOBACILLUS RHAMNOSUS GG 1 EACH CAP PO SCH (09:08)
[2018-10-08] MEDS: VITAMIN D 400 IU TAB PO SCH ×2 (09:09→21:27)
[2018-10-08] MEDS: MIDODRINE 5 MG TAB PO SCH ×3 (09:09→16:32)
[2018-10-08] MEDS: FUROSEMIDE 20 MG TAB PO SCH ×3 (09:09→17:00)
[2018-10-08] MEDS: ASCORBIC ACID 500 MG TAB PO SCH ×2 (09:09→21:28)
--- NOTE | 2018-10-08 09:15 | NUR ---
AM MEDS GIVEN PT GIA PO PILLS WELL.
--- NOTE | 2018-10-08 10:43 | NUR ---
Automobile Taillight Assembler Note: Late entry for 10/07/18: I received a call from casework specialist Alda from [facility] ext [phone], she stated documents that were fax to [facility] indicated patient was discharged on 09/29/18, therefore, patient's case was closed. I asked her who had fax information to [facility], she replied their system didn't have that information. She told me she could not assist me with authorization for fdc care at [facility] and advised me to contact [facility] and fax patients progress notes, HNP, and MDs order for fdc placement to . I faxed information. I called [facility] and was automatically placed on hold for about 30 minutes, at same time I received a call from Araseli Addison from [facility] ext [phone]. Araseli told me that she didnt have any information about patient, I informed her of my conversation with casework specialist Alda and that I had faxed information to the fax number that Alda provided me with. Araseli verified that the fax number Alda gave me belonged to [facility], however, stated their system didnt have any information about patient. I offered to fax information once again. However, she told me that since it was late in the day I was going to have to call [facility] once again.
--- NOTE | 2018-10-08 10:45 | NUR ---
Supervisor Shipfitters Note: I called and spoke with Amee Taylor from [facility] , she told me I needed to call [facility] for snf authorization for halfway care and provided me with [facility] phone number . I called [facility] and spoke with Libby, Libby told me one of their business case analyst will call me back regarding snf authorization. I received a call from Vilma , he stated that since patient is in [facility] is responsible for providing snf authorization and told me to contact [facility], I told him I had and that [facility] referred me to [facility] He reiterated for me to contact . Care. I called and spoke with Mao from [facility] and summarized my conversations with business case analyst from [facility] She requested I fax patients progress notes, HNP, and MDs order for halfway care, fax number and stated she can contact [facility] and provide them with verbal authorization until patients information is review and authorization is entered in their system. She stated I needed to call [facility] tomorrow 10/09/18 due to holiday (). I faxed information to Mao and provided her with Mercedes from [facility] contact information, phone number .
--- NOTE | 2018-10-08 14:20 | NUR ---
TIRE BUILDER AT BEDSIDE FOR BED BATH. PT SITTING UP BRUSHING HIS TEETH.
[2018-10-08 16:00] VITALS: BP 88/54
--- NOTE | 2018-10-08 17:13 | NUR ---
PT REFUSED SCHEDULED DOSE OF LASIX 60MG, PT STATED THAT 60MG TWICE A DAY IS TOO MUCH MEDICATION, IT WILL DAMAGE MY KIDNEY, I'M NOT SICK ENOUGH TO NEED THAT MUCH MEDICATION" PT EDUCATED THAT LASIX IS PREVENTING FURTHER FLUID BUILD-UP SINCE HE HAD ALREADY THORACENTHESIS TWICE DURING THIS HOSPITALIZATION, PT CONTINUED TO STATE THAT "I CAN'T KEEP TAKING THAT MUCH MEDICATION, I DON'T NEED THAT MUCH LASIX BECAUSE THEY ALREADY TOOK THE FLUID OUT", WILL NOTIFY MD OF PT'S REFUSAL TO TAKE MEDS.
--- NOTE | 2018-10-08 19:25 | NUR ---
REPORT GIVEN TO CANNON FIRE DIRECTION SPECIALIST NURSE, PT IN STABLE CONDITION.
--- NOTE | 2018-10-08 19:30 | NUR ---
RECEIVED REPORT FROM TWAN PATEL DAYSHIFT NURSE AT BEDSIDE FOR CONTINUITY OF CARE, PT IN STABLE CONDITION.
--- NOTE | 2018-10-08 21:00 | NUR ---
PT IN LOW BED WITH SIDE RAILS UP AND ALL FALLS PRECAUTIONS IN PLACE. V/S FOLLOWS T 97.6 P 72 R 18 B/P 100/69 02 99% WITH R/A. PT GIVEN ALL MEDS DUE AT THIS TIME EXCEPT WHICH WAS HELD DUE TO LOW B/P. PT ALSO REQUEST B/P MEDS TO BE HELD DUE TO LOW B/P. PT C/O 5/10 GENERALIZED BODY PAIN AND WAS GIVEN NORCO 5/325 PO/PRN FOR PAIN. PT F/S WAS 145 NO COVERAGE NEEDED. PT ALSO REQUEST A SANDWICH FOR SNACK WHICH WAS PROVIDED FOR PT AT BEDSIDE. PT WAS TURNED AND REPOSITIONED. WILL CONTINUE TO MONITOR PT FOR EFFECT OF PAIN MEDICATION.
[2018-10-08] MEDS: MULTIVITAMIN/MINERALS 15 ML UDBTL GT SCH (21:27)
[2018-10-08] MEDS: ATORVASTATIN 20 MG TAB PO SCH (21:27)
[2018-10-08] MEDS: CLOPIDOGREL 75 MG TAB PO SCH (21:28)
[2018-10-09] VITALS: BP 94/60
[2018-10-09] MEDS: ONDANSETRON 4 MG/2 ML VIAL IM/IVP PRN (00:26)
--- NOTE | 2018-10-09 00:30 | NUR ---
PT C/O NAUSEA AND WAS GIVEN PRN ZOFRAN 4MG/2MLS VIA IV PUSH. IV SITE 24GUAGE ON R HAND. IV SITE FLUSHED PATENT.. PT ALSO REQUEST TO BRUSH TEETH AND USE MOUTH WASH, PT ABLE TO BRUSH TEETH AND USE MOUTH WASH WITH MINIMAL ASSISTANCE. PT ALSO TURNED AND REPOSITIONED. WILL RE ASSES PRN FOR NAUSEA.
--- NOTE | 2018-10-09 02:30 | NUR ---
PT IN BED HOB UP 35% ALL FALLS PRECAUTIONS IN PLACE, PT SLEEPING QUIETLY.
--- NOTE | 2018-10-09 04:32 | NUR ---
PT CONTINUES TO SLEP ALL FALLS PRECAUTIONS IN PLACE. NI S/S OF PAIN OR DISTRESS NOTED.
[2018-10-09] MEDS: BLOOD GLUCOSE MONITORING 1 DEV DEV FS SCH (06:03)
--- NOTE | 2018-10-09 06:07 | NUR ---
PT F/S IS 82 NO COVERAGE NEEDED, PT TURNED AND REPOSITIONED.
--- NOTE | 2018-10-09 07:30 | NUR ---
PT REPORT RECEIVED AT BEDSIDE FORM DIRECTOR CHILD ABUSE THERAPY NURSE. PT IS AWAKE AND ALERT IN BED. NO S/S OF DISTRESS NOTED. IV NOTED R HAND, 24 GAUGE, SALINE LOCK. SKIN IS INTACT. PT ON ROOM AIR. STILL WAITING FOR PLACEMENT FOR PATIENT. BED LOW, CALL LIGHT WITHIN REACH. WILL CONTINUE TO MONITOR.
--- NOTE | 2018-10-09 07:41 | NUR ---
GAVE REPORT TO SILVIO PATEL FOR CONTINUITY OF CARE, PT IN STABLE CONDITION.
--- NOTE | 2018-10-09 07:43 | NUR ---
RECEIVED PATIENT ON ROOM AIR, O2 SAT 94%. NO RESPIRATORY DISTRESS NOTED AT THIS TIME. WILL CONTINUE TO MONITOR.
[2018-10-09 08:00] VITALS: BP 92/64
[2018-10-09] MEDS: LISINOPRIL 5 MG TAB PO SCH ×2 (09:00→09:29)
[2018-10-09] MEDS: SPIRONOLACTONE 25 MG TAB PO SCH (09:00)
[2018-10-09] MEDS: FUROSEMIDE 20 MG TAB PO SCH (09:00)
[2018-10-09] MEDS: CARVEDILOL 3.125 MG TAB PO SCH (09:00)
[2018-10-09] MEDS: ASCORBIC ACID 500 MG TAB PO SCH (09:29)
[2018-10-09] MEDS: ASPIRIN 81 MG TAB.CHEW PO SCH (09:29)
[2018-10-09] MEDS: MIDODRINE 5 MG TAB PO SCH (09:30)
[2018-10-09] MEDS: VITAMIN D 400 IU TAB PO SCH (09:30)
[2018-10-09] MEDS: LACTOBACILLUS RHAMNOSUS GG 1 EACH CAP PO SCH (09:30)
[2018-10-09] MEDS ORDERED: FURO-572 PO (11:36)
[2018-10-09] MEDS ORDERED: ATOR10TA PO (11:36)
--- NOTE | 2018-10-09 13:59 | NUR ---
Video Producer Note: I called and spoke with Alejandra from [facility] after hours center , she apologized and stated she didnt have access to the information that I had fax yesterday to [facility]. She requested I fax patients progress notes, HNP, and MDs order for assisted care at [facility] once again to [facility], fax number . She stated once she receives information she will call me back and provide me with snf authorization for assisted care. I faxed information. I received a call from Alejandra. Per Alejandra, [facility] authorization for [facility] is [phone], she stated theres no need for authorization for transportation, [employer] transportation can be contacted. Per Pola from [facility] , patient may go to room 10B today, accepting physician is . Air Intelligence Specialist Sami and I met with patient at bedside to inform him [facility] is able to accept him today and [facility] has authorized transfer. He stated he does not want to be transfer to [facility] because it is dirty and they lost his DMEs. He requested to have more time to coordinate his discharge plan. I explained to him more than sufficient time had been given to him and numerous efforts were made by Case Management/Video Producer staff to assist him with placement. He told us that he was going to make phone calls and let us where he would like to be discharge to upon discharge today. Air Intelligence Specialist Sami, Dr. Lindsey, and I met with patient at bedside. He was told us he had talked to a man from a [employer] who was going to assist him with housing. He was reluctant to provide us with this aranza contact information because he stated he didnt want us to bother him. We explained to him the importance of verifying discharge plan. He agreed to provide us with his contact information, Yoandy . Sami called and spoke with Yoandy Pitt stated patient can be discharge to [address] [place], [place] [id number] today and he would be at location today to receive patient and assist him with housing. Sami told Yoandy transportation will be arranged for patient, and Charge Nurse Best made aware.
--- NOTE | 2018-10-09 14:25 | NUR ---
PT HAS DISCHARGED VIA TAXI TO A [facility], A LOCATION OF HIS CHOICE, IN [place]. PT ALREADY RECEIVED FLU AND PNEUMO VACCINES THIS SEASON AT THE [facility]. DISCHARGE DOCUMENTS GIVEN, SIGNATURES OBTAINED. IV SITE DC'D, WRIST BANDS REMOVED. PT LEFT WITH ALL OF HIS BELONGINGS IN A STABLE CONDITION.
== END 2018-10-09 14:20 | disposition home or self-care (01) | DRG 190 ==
LOC: MED 08:59 → MTU 12:03
PROVIDERS: ADMIT Family Medicine; ATTEND Family Medicine
PROC: 0W993ZZ Drainage of Right Pleural Cavity, Percutaneous Approach (ICD-10-PCS; principal; 2018-09-22)
PROC: 0W9B3ZZ Drainage of Left Pleural Cavity, Percutaneous Approach (ICD-10-PCS; 2018-09-23)
PROC: 0W993ZZ Drainage of Right Pleural Cavity, Percutaneous Approach (ICD-10-PCS; 2018-09-30)
DX: I21.A1 Myocardial infarction type 2 (principal); J96.01 Acute respiratory failure with hypoxia; N17.0 Acute kidney failure with tubular necrosis; J69.0 Pneumonitis due to inhalation of food and vomit; I50.43 Acute on chronic combined systolic (congestive) and diastolic (congestive) heart failure; A41.9 Sepsis, unspecified organism; J90 Pleural effusion, not elsewhere classified; I95.9 Hypotension, unspecified; E44.1 Mild protein-calorie malnutrition; M94.0 Chondrocostal junction syndrome [Tietze]; E11.21 Type 2 diabetes mellitus with diabetic nephropathy; E78.5 Hyperlipidemia, unspecified; E02 Subclinical iodine-deficiency hypothyroidism; J44.9 Chronic obstructive pulmonary disease, unspecified; H54.8 Legal blindness, as defined in USA; I25.10 Atherosclerotic heart disease of native coronary artery without angina pectoris; E11.40 Type 2 diabetes mellitus with diabetic neuropathy, unspecified; I11.0 Hypertensive heart disease with heart failure; E11.51 Type 2 diabetes mellitus with diabetic peripheral angiopathy without gangrene; E11.69 Type 2 diabetes mellitus with other specified complication; D68.59 Other primary thrombophilia; E11.319 Type 2 diabetes mellitus with unspecified diabetic retinopathy without macular edema; I42.0 Dilated cardiomyopathy; E87.6 Hypokalemia; D69.6 Thrombocytopenia, unspecified; I07.1 Rheumatic tricuspid insufficiency; I27.21 Secondary pulmonary arterial hypertension; I48.91 Unspecified atrial fibrillation; Z85.118 Personal history of other malignant neoplasm of bronchus and lung; Z88.0 Allergy status to penicillin; Z91.041 Radiographic dye allergy status; Z79.4 Long term (current) use of insulin; Z79.1 Long term (current) use of non-steroidal anti-inflammatories (NSAID); Z79.82 Long term (current) use of aspirin; Z79.02 Long term (current) use of antithrombotics/antiplatelets; Z79.899 Other long term (current) drug therapy; I25.2 Old myocardial infarction; Z95.5 Presence of coronary angioplasty implant and graft; Z86.73 Personal history of transient ischemic attack (TIA), and cerebral infarction without residual deficits; Z86.718 Personal history of other venous thrombosis and embolism; Z68.28 Body mass index [BMI] 28.0-28.9, adult; Z85.72 Personal history of non-Hodgkin lymphomas; Z95.810 Presence of automatic (implantable) cardiac defibrillator; Z91.19 Patient's noncompliance with other medical treatment and regimen
CPT/HCPCS: 36415; 71045; 71046; 71250; 74018; 76604; 76705; 76942; 80048; 80053; 80305; 81003; 82150; 82948; 83036; 83605; 83615; 83690; 83735; 83880; 84100; 84134; 84155; 84436; 84439; 84443; 84484; 85025; 85610; 85730; 87040; 87070; 87075; 87081; 87102; 87116; 87190; 87205; 87206; 88305; 88313; 88342; 93925; 93970; 94640; 97116; 97164; 97530; 97535; 99285; C1751; J1200; J1644; J1815; J1885; J1940; J1956; J2001; J2060; J2185; J2405; J3370; J3490; J7030; J7613; J7620; Q0092